=== PATIENT | female | born 1955 | race Caucasian/White ===

== ENCOUNTER 2019-04-02 15:31 | Outpatient (RCR) | payer MEDICARE, MEDICAID, SELFPAY | END 2019-04-12 23:59 | disposition home or self-care (01) | LOC: SPT 15:31 | PROVIDERS: Family Provider Family Medicine; PCP Family Medicine; Referring Provider Orthopaedic Surgery; Visit Provider Orthopaedic Surgery | DX: Z98.890 Other specified postprocedural states (principal) | CPT/HCPCS: 97110; 97161 ==

== ENCOUNTER 2019-04-13 06:00 | Outpatient (RCR) | payer MEDICARE, MEDICAID, SELFPAY | END 2019-05-13 23:59 | disposition home or self-care (01) | LOC: SPT 06:00 | PROVIDERS: Family Provider Family Medicine; PCP Family Medicine; Referring Provider Orthopaedic Surgery; Visit Provider Orthopaedic Surgery | DX: Z47.89 Encounter for other orthopedic aftercare (principal) | CPT/HCPCS: 97110; 97161 ==

== ENCOUNTER 2019-04-14 10:23 | Emergency (ER) | payer MEDICARE, MEDICAID, SELFPAY ==
[2019-04-14 10:53] VITALS: BP 147/95; PULSE 81; RESP 15; TEMP 36.8; O2SAT 95; BMI 31.6
--- NOTE | 2019-04-14 12:28 | PC.NURSE ---
PHYSICAL ASSESSMENT Patient ambulated to room Chief Complaint: Fall, hit head and right knee, Hx: Tripped and fall. Hit right knee on concrete and head on building. Denies LOC GENERAL / NEURO / PSYCH: Alert. Oriented X 4. HEENT: Mucous membranes are pink. RESPIRATORY: No abnormalities CVS: Capillary refill less than 2 seconds. GI / : Abdomen soft and nontender. Bowel sounds within normal limits. SKIN: Skin is warm and dry. Normal skin turgor. EXTREMITIES: Right knee pain. No swelling noted. Normal ROM Head: Mild swelling along the left side of forehead.
--- NOTE | 2019-04-14 12:52 | ED_ITS ---
HPI - Fall General: Chief Complaint: Fall Stated Complaint: Fall Time Seen by Provider: 04/14/19 12:29 History of Present Illness: HPI Narrative: Patient is a 64-year-old female who comes into the ED after a fall. Patient was walking and tripped and her right knee hit the concrete pavement and her forehead hit a concrete wall. She denies any loss of consciousness, nausea, vomiting. She does have a headache. Patient does take blood thinners. Denies any vision changes or any other neuro symptoms. Her other complaint is her right knee pain. She says it hurts to bend it and walk on her back. Denies any numbness or tingling down her leg or her right extremity. Associated symptoms-after fall: Reports headache(s); Denies abdominal pain, chest pain, hematuria or neck pain Review of Systems Const: Denies: fever, chills or fatigue Eyes: Denies: change in vision or eye discomfort ENMT: Denies: throat pain, painful swallowing, nasal discharge or nasal conge stion Card: Denies: chest pain, palpitations, edema, swelling of feet/ankles, shortness of breath on exertion or shortness of breath when lying down Resp: Denies: shortness of breath, productive cough or non-productive cough GI: Denies: abdominal pain, nausea, vomiting, diarrhea, constipation or blood in stool : Denies: flank pain, painful urination or blood in urine Musc: Reports: joint pain (right knee) and joint swelling (right knee swelling); Denies: neck pain, back pain or extremity swelling Skin/Breast: Denies: rash or new lesion Neuro: Reports: headache; Denies: numbness in extremities or weakness in extremities PFS ED PFSH: Social History Smoking and tobacco status: current every day smoker Physical Exam Const: COMMON NORMALS: oriented x3 HENMT: COMMON NORMALS: normocephalic and TM's normal bilaterally HEAD & SCALP: normocephalic TYMPANIC MEMBRANE: TM's normal bilaterally MOUTH: oral and palatal mucosa normal THROAT: posterior oropharynx normal and uvula midline OTHER: Patient had a small hematoma on the left side of forehead. Mild tenderness when palpated. Eye: COMMON NORMALS: PERRL, EOMs intact bilaterally and normal visual yin by confrontation PUPIL: Yes PERRL Neck/C-Spine: COMMON NORMALS: supple GENERAL: Yes normal visual inspection Resp: COMMON NORMALS: normal respiratory effort, no retractions, no use of accessory muscles and clear to auscultation bilaterally AUSCULTATION: clear to auscultation bilaterally Cardio: COMMON NORMALS: regular rate, regular rhythm, S1 normal heart sound, S2 normal heart sound, no gallops, no clicks, no murmurs and peripheral pulses 2+ throughout RATE: regular rate RHYTHM: regular rhythm HEART SOUNDS: S1 normal and S2 normal PERIPHERAL PULSES: pulses 2+ throughout GI: COMMON NORMALS: normal to inspection, nondistended, normoactive bowel sounds, soft to palpation, non-tender and no masses PALPATION: Yes soft : COMMON NORMALS: Yes no CVA tenderness BLADDER/KIDNEY EXAM: Yes no CVA tenderness Back/Pelvis: COMMON NORMALS: no CVA tenderness Extremity: RIGHT LOWER EXTREMITY: Yes knee joint Right knee: Yes inspection (mild swelling), Yes palpation (Tender on medial and lateral side of knee and over patella), Yes ROM (limited due to pain. ) and Yes neurovascular exam (intact) Neuro: MI COMA SCALE: document GCS findings [place] coma scale eye opening: Spontaneous [place] coma scale verbal response: Orientated [place] coma scale motor response: Obey commands Mi coma scale total score: 15 COMMON NORMALS: oriented x3, CN's II-XII intact bilaterally, moves all extremities, no focal motor deficits and no sensory deficits noted SENSORY EXAM: Yes extremities (intact) MOTOR EXAM: strength 5/5 throughout Skin: COMMON NORMALS: no rashes or lesions noted GENERAL SKIN EXAM: no rashes or lesions noted and dry skin Course Consultations: Consultation #1: I called the astronaut mission specialist Orthopedic doctor (Dr. Mcclain) and discussed the patients case. She took a look at the xrays as well while I was on the phone. She told me to get a CT scan of the knee and place patient in a hinge knee brace. Vital Signs: Vital signs: Vital Signs Temperature 98.3 F 04/14/19 10:53 Pulse Rate 81 04/14/19 10:53 Respiratory Rate 16 04/14/19 16:48 Blood Pressure 147/95 04/14/19 10:53 Pulse Oximetry 96 04/14/19 16:48 MDM - Fall MDM Narrative: Medical decision making narrative: CT head was performed since patient fell and hit head and pt on blood thinners. CT of head was normal. Right Knee xray showed a tibia plateau fracture. I contacted astronaut mission specialist ortho doc to get further guidance on treatment and management. Dr. Mcclain wanted me to get a ct of patients knee and then put patient in a hinged knee brace. Referral to [facility] Ortho was put in with social work msw. Pt was given a hand written prescription for 12 hydrocodone for pain. Imaging Data^: Xray Ortho: Attestation: I personally reviewed and interpreted this imaging study as follows: Radiologist's impression: [address] [place] [address] XRay Report Signed Patient: Roxy Carlos Unit #: [id number] : 1955 Age/Sex: 64 / F ADM Date: 04/14/19 Loc: ER Room/Bed: Attending Dr: Ordering Provider/Ordering MD: Johnny Hazel Date of Service: 04/14/19 Procedure(s): XR knee RT 3V* 61714 Accession Number(s): [id number] Report Number: [id number] WS: [id number] XR knee RT 3V* 22720 REASON FOR EXAM: fall, pain and swelling FINDINGS: Degenerated medial meniscal changes. Along the lateral tibial plateau is a mildly impacted fracture. Appears to involve the posterior tibial plateau. There is degenerative arthritis involving the patella femoral articulation with heavy spurring off the superior and inferior patella. IMPRESSION: Suspect fracture along the posterior medial tibial plateau. Degenerate changes of the patella. Dictated By: Shahriar Lyles DO Signed By: Shahriar Lyles DO Signed Date/Time: 04/14/19 1342 DD/ 1334 CT Head: Attestation: I personally reviewed and interpreted this imaging study as follows: Radiologist's impression: [address] [address] [address] Scan Report Signed Patient: Roxy Carlos Unit #: [id number] : 1955 Age/Sex: 64 / F ADM Date: 04/14/19 Loc: ER Room/Bed: Attending Dr: Ordering Provider/Ordering MD: Johnny Hazel Date of Service: 04/14/19 Procedure(s): CT head wo con* [id number] Accession Number(s): [id number] Report Number: [id number] WS: [id number] CT HEAD NONCONTRAST HISTORY: fall and hit head on wall. Headache TECHNIQUE: Contiguous axial imaging performed through the brain in 2.5 mm imaging. Bone and soft tissue windows. Sagittal and coronal reformats reviewed. All CT scans at [facility] use at least one of these dose optimization techniques: automated exposure control; mA and/or kV adjustment per patient size (includes targeted exams where dose is matched to clinical indication); or iterative reconstruction. DLP: 783.55 mGy.cm COMPARISON: None available. No acute intracranial hemorrhage, midline shift or mass effect. Mild atrophy and mild chronic microvascular ischemic disease. Ventricles: Normal size with no hydrocephalus. Paranasal sinuses: As visualized are clear. Mastoid air cells: Well pneumatized. Calvarium and scalp: Skull is intact with no soft tissue edema or swelling. Moderate atherosclerosis intracranial carotid arteries. CT/CT head wo con* [id number] IMPRESSION: 1. No acute intracranial hemorrhage or edema. 2. Mild atrophy and mild chronic microvascular ischemic disease. Dictated By: Jaylin Araiza DO Signed By: Jaylin Araiza DO Signed Date/Time: 04/14/191421 DD/ 141 Discharge Plan Discharge Patient Disposition: Home, Self-Care Clinical Impression: Hematoma Tibial plateau fracture Qualifiers: Encounter type: initial encounter Fracture type: closed Laterality: right Qualified Code(s): S82.141A - Displaced bicondylar fracture of right tibia, initial encounter for closed fracture Condition: Stable Discharge Orders: Discharge Order (Routine); Ordered 04/14/19 Ordered By: Johnny Hazel Referrals: Juan Hazel MD [Primary Care Provider] - Discharge Diet: Regular Discharge Activity: Limit activity as instructed and Use walker/crutches as instructed Patient Instructions: Leg Fracture (ED) Activity Restrictions/Additional Instructions: I have placed an orthopedic referral for you. [facility] orthopedics should be calling you to set up an appointment within the next several days. Wear knee brace and use crutches to help ambulate. Remember it is recommended that you only have partial weightbearing on your right leg as it heals. Take the hydrocodone as prescribed. You can rest ice and elevate legs throughout the day as well. Discharge Date/Time: 04/14/19 16:48 Coding Level of Care Code ED [employer] for Patti Vernon Exam Comprehensive
--- NOTE | 2019-04-14 13:11 | CT_ITS ---
WS: [id number] CT HEAD NONCONTRAST HISTORY: fall and hit head on wall. Headache TECHNIQUE: Contiguous axial imaging performed through the brain in 2.5 mm imaging. Bone and soft tiss ue windows. Sagittal and coronal reformats reviewed. All CT scans at [facility] use at le ast one of these dose optimization techniques: automated exposure control; mA and/or kV adjustment pe r patient size (includes targeted exams where dose is matched to clinical indication); or iterative r econstruction. DLP: 783.55 mGy.cm COMPARISON: None available. No acute intracranial hemorrhage, midline shift or mass effect. Mild atrophy and mild chronic microvascular ischemic disease. Ventricles: Normal size with no hydrocephalus. Paranasal sinuses: As visualized are clear. Mastoid air cells: Well pneumatized. Calvarium and scalp: Skull is intact with no soft tissue edema or swelling. Moderate atherosclerosis intracranial carotid arteries. CT/CT head wo con* [id number] IMPRESSION: 1. No acute intracranial hemorrhage or edema. 2. Mild atrophy and mild chronic microvascular ischemic disease.
--- NOTE | 2019-04-14 13:11 | XR_ITS ---
WS: [id number] XR knee RT 3V* [id number] REASON FOR EXAM: fall, pain and swelling FINDINGS: Degenerated medial meniscal changes. Along the lateral tibial plateau is a mildly impacted fracture. Appears to involve the posterior tibi al plateau. There is degenerative arthritis involving the patella femoral articulation with heavy spurring off th e superior and inferior patella. IMPRESSION: Suspect fracture along the posterior medial tibial plateau. Degenerate changes of the patella.
[2019-04-14] MEDS: acetaminophen 500 mg Tablet PO (14:00)
--- NOTE | 2019-04-14 14:43 | CT_ITS ---
WS: [id number] CT scan of the right knee. Additional two-dimensional coronal and sagittal reconstruction was perform ed. MIP images were also performed. 04/14/2019 Clinical Data: pain and injury to right knee Comparison: Right knee x-ray, 04/14/2019 DLP: 192.[address] scans at [facility] use at least one of these dose optimization techniques: automat ed exposure control; mA and/or kV adjustment per patient size (includes targeted exams where dose is matched to clinical indication); or iterative reconstruction. Findings: No definite tibial plateau fracture is seen. There is osteoarthritic change of the femoral condyles, tibial plateau and patella. The soft tissues are normal. CT/CT knee RT wo con* [id number] Impression: 1. Negative for definite tibial plateau fracture. 2. Severe osteoarthritis of the right knee.
--- NOTE | 2019-04-14 15:49 | DCPLANNER ---
manager animation had message to schedule a follow up appointment for patient with ortho. manager animation called the clinic, spoke with Pat, gave clinic patients information. manager animation was told that patients information would be printed and reviewed. Clinic will call case management specialist and patient with appointment information.
[2019-04-14 16:48] VITALS: RESP 16; O2SAT 96
--- NOTE | 2019-04-22 15:08 | DCPLANNER ---
Patient had an appointment scheduled for 04.17.19 with ortho, and patient did attend the appointment.
== END 2019-04-14 16:48 | disposition home or self-care (01) ==
PROVIDERS: Emergency Provider Physician Assistant; Family Provider Family Medicine; PCP Family Medicine
DX: S82.141A Displaced bicondylar fracture of right tibia, initial encounter for closed fracture (principal); S00.83XA Contusion of other part of head, initial encounter; F17.200 Nicotine dependence, unspecified, uncomplicated; R40.2412 Glasgow coma scale score 13-15, at arrival to emergency department; W01.198A Fall on same level from slipping, tripping and stumbling with subsequent striking against other object, initial encounter
CPT/HCPCS: 29530; 70450; 73562; 73700; 99281; 99283; E0114; L1812

== ENCOUNTER 2019-06-11 09:25 | Outpatient (CLI) | payer MEDICARE, MEDICAID, SELFPAY ==
--- NOTE | 2019-06-11 09:36 | XR_ITS ---
WS: [id number] RIGHT HIP HISTORY: LUMBAGO WITH SCIATICA COMPARISON: 02/14/2006 Right hip: There is very slight elevation of the cortex involving the superior femoral neck. Nearly s imilar to the prior study from 2006. No definite fractures identified. Mild narrowing of the hip join t. Mild degenerative changes at the RIGHT SI joint. XR/XR hip RT 2-3V wo/w pel* [id number] IMPRESSION: 1. No definite hip fracture. There is slight elevation of the cortex along the superior femoral neck which is nearly similar to the prior study. With history of trauma recommend follow-up RIGHT hip CT or MRI. 2. Mild RIGHT hip joint arthritis.
--- NOTE | 2019-06-11 09:40 | XR_ITS ---
WS: [id number] LUMBAR SPINE: 3 VIEWS TECHNIQUE: AP, lateral and L5-S1 spot. HISTORY: LUMBAGO WITH SCIATICA COMPARISON: None available. Status post lumbar fusion from L4 to S1 bilaterally. Interbody spacers screw at L5-S1. No lucency or fractures hardware. Mild disc space narrowing and desiccation throughout the lumbar spine. No fractures. Mild bilateral SI joint disease. Scattered calcifications in the aorta. Prior cholecystectomy. XR/XR lumbar spine 2-3V* [id number] IMPRESSION: 1. Status post lumbar fusion from L4 to S1. No hardware fracture or loosening. 2. Mild spondylosis.
== END 2019-06-11 09:26 | disposition home or self-care (01) ==
LOC: RAD 09:32
PROVIDERS: Family Provider Family Medicine; PCP Family Medicine; Visit Provider Nurse Practitioner Family
DX: M54.41 Lumbago with sciatica, right side (principal); M47.816 Spondylosis without myelopathy or radiculopathy, lumbar region; M16.11 Unilateral primary osteoarthritis, right hip; Z98.890 Other specified postprocedural states; Z98.1 Arthrodesis status; M43.27 Fusion of spine, lumbosacral region
CPT/HCPCS: 72100; 73502

== ENCOUNTER 2019-06-22 08:50 | Emergency (ER) | payer MEDICARE, MEDICAID, SELFPAY ==
[2019-06-22 09:20] VITALS: BP 122/65; PULSE 103; RESP 15; TEMP 36.7; O2SAT 96; BMI 30.8
--- NOTE | 2019-06-22 09:30 | ED_ITS ---
HPI - General Adult General: Chief complaint: General Medical Stated complaint: STATES SHE IS VERY TIRED AND SLEEPS ALOT Time Seen by Provider: 06/22/19 09:16 History of Present Illness: HPI narrative: Patient is a 64-year-old female who comes to the ED with generalized fatigue and feeling unwell. Patient says she started having the symptoms on , June 18. She states she has had no energy and been sleeping a lot. She has lost her appetite and has not been eating much since start of symptoms. She describes having some chills but no fever. Denies any worsening of symptoms when she is up ambulating or exerting herself. Patient did inform me that her brother 3 weeks ago and she has been very sad and down about that. She thinks that could be contributing to some of her symptoms. Patient also states that she did recently have a take on her. She has noticed it on Sunday, June 19 and removed it. Denies any acute pain, cough, sore throat, nasal congestion, nausea, vomiting, chest pain, shortness of breath, constipation, diarrhea, blood in the stool, hematuria, dysuria. Associated symptoms: Deny chest pain, dyspnea, headache(s), nausea, rash, palpitations or vomiting Review of Systems Const: Reports: chills, change in appetite, fatigue and daytime sleepiness; Denies: fever Eyes: Denies: change in vision or eye discomfort ENMT: Denies: throat pain, painful swallowing, nasal discharge or nasal congestion Card: Denies: chest pain, palpitations, edema, swelling of feet/ankles, shortness of breath on exertion or shortness of breath when lying down Resp: Denies: shortness of breath, productive cough or non-productive cough GI: Denies: abdominal pain, nausea, vomiting, diarrhea, constipation or blood in stool : Denies: flank pain, painful urination or blood in urine Musc: Denies: neck pain, back pain or extremity swelling Skin/Breast: Denies: rash or new lesion Neuro: Denies: headache, numbness in extremities or weakness in extremities PFSH ED PFSH: Family History Other Cancer Diabetes Hypertension Stroke Social History Smoking and tobacco status: never smoked Physical Exam Const: COMMON NORMALS: oriented x3 HENMT: COMMON NORMALS: normocephalic HEAD & SCALP: normocephalic MOUTH: oral and palatal mucosa normal THROAT: posterior oropharynx normal and uvula midline Neck/C-Spine: COMMON NORMALS: supple GENERAL: Yes normal visual inspection Resp: COMMON NORMALS: normal respiratory effort, no retractions, no use of accessory muscles and clear to auscultation bilaterally AUSCULTATION: clear to auscultation bilaterally Cardio: COMMON NORMALS: regular rate, regular rhythm, S1 normal heart sound, S2 normal heart sound, no gallops, no clicks, no murmurs and peripheral pulses 2+ throughout RATE: regular rate RHYTHM: regular rhythm HEART SOUNDS: S1 normal and S2 normal PERIPHERAL PULSES: pulses 2+ throughout GI: COMMON NORMALS: normal to inspection, nondistended, normoactive bowel sounds, soft to palpation, non-tender and no masses PALPATION: Yes soft : COMMON NORMALS: Yes no CVA tenderness BLADDER/KIDNEY EXAM: Yes no CVA tenderness Back/Pelvis: COMMON NORMALS: no CVA tenderness Neuro: COMMON NORMALS: oriented x3 and moves all extremities Course ED course: HEART Score-2 Vital Signs: Vital signs: Vital Signs Temperature 98.1 F 06/22/19 09:20 Pulse Rate 70 06/22/19 12:42 Respiratory Rate 18 06/22/19 12:42 Blood Pressure 127/75 06/22/19 12:42 Pulse Oximetry 98 06/22/19 12:42 MDM - General Adult MDM Narrative: Medical decision making narrative: Patient is a 64-year-old female who comes to the ED with fatigue. She has had recent stress and sadness due to losing her brother within the last couple weeks. Patient also states that she did have a tick on her and she removed it on June 19. Physical exam was unremarkable. Vitals showed a blood pressure of 127/75, pulse 70, respirations 18, temp 98.1, O2 saturation 98% on room air. EKG showed normal sinus rhythm and troponins were negative. Patient had a white blood cell count of 2.8 and a low platelet count of 112. TSH was normal and influenza was negative. Patient was also worked up for tick panel labs and those are still pending. She was diagnosed with fatigue and given prescription of doxycycline to prophylactically treat possible tick bite disease. Patient was told to follow-up with PCP in 7 days for reevaluation. Patient understood and agreed with plan. Lab Data: Attestation: I reviewed the patient's lab results. Labs: Lab Results 06/22/19 06/22/19 06/22/19 Range/Units 10:05 10:05 10:20 WBC 2.8 L (4.0-10.0) 10^3/ uL RBC 4.66 (4.1-5.3) 10^6/u L Hgb 12.9 (11.5-15.3) g/dL Hct 40.1 (37.0-47.0) % MCV 86.1 (81-99) fL MCH 27.7 L (28.0-34.0) pg MCHC 32.2 (30.0-36.0) g/dL RDW 14.8 (12.1-15.1) % Plt Count 112 L (130-400) 10^3/c mm MPV 10.0 (7.4-10.4) fL Neut % (Auto) 92.1 % Lymph % (Auto) 5.0 % [place] % (Auto) 2.5 % Eos % (Auto) 0.0 % Baso % (Auto) 0.0 % Neut # (Auto) 2.6 (1.8-7.7) 10^3/u L Lymph # (Auto) 0.1 L (0.8-4.8) 10^3/u L Mercer # (Auto) 0.1 L (0.2-0.9) 10^3/u L Eos # (Auto) 0.0 (0.0-0.8) 10^3/u L Baso # (Auto) 0.0 (0.0-0.1) 10^3/u L Nucleated RBC % (a uto) 0 % Nucleated RBCs # 0.0 /100WBC Sodium (136-145) mmol/L Potassium (3.5-5.1) mmol/L Chloride (98-107) mmol/L Carbon Dioxide (22-29) mmol/L Anion Gap (5-19) BUN (8-23) mg/dL Creatinine (0.5-0.9) mg/dL GFR Calculation (90-130) mL/min Glucose (65-115) mg/dL Calculated Osmolal ity (285-295) mOsm/k g Calcium (8.5-10.5) mg/dL Total Bilirubin (0.15-1.2) mg/dL AST (0-32) U/L ALT (0-33) U/L Alkaline Phosphata se (35-105) IU/L Troponin T Baselin e (0-10) ng/mL Troponin T 120 Min [place] (0-10) ng/mL Delta Troponin T (0-10) ABS# Total Protein (6.6-8.7) g/dL Albumin (3.5-5.2) g/dL Globulin (1.3-4.6) g/dL TSH (0.27-4.20) uIU/ mL Urine Color Yellow (Yellow) Urine Appearance Hazy A (CLEAR) Urine pH 5 (5-7) Ur Specific Gravit y 1.025 (1.005-1.030) Urine Protein Trace (Negative) Urine Glucose (UA) Trace H (Normal) Urine Ketones 2+ H (Negative) Urine Blood 3+ H (Negative) Urine Nitrate Negative (Negative) Urine Bilirubin 1+ H (NEGATIVE) Urine Urobilinogen 1 H (Negative) mg/dL Ur Leukocyte [place] ase Negative (Negative) Urine RBC 10-15 H (0-2) /hpf Urine WBC 0-4 H (0-5) /hpf Ur Squamous Epith Cells 0-4 H (0-5) Urine Bacteria 4+ H (NONE) Urine Mucus 1+ Influenza Type A A g Negative (Negative) Influenza Type B A g Negative (Negative) 06/22/19 06/22/19 06/22/19 Range/Units 10:20 10:20 12:09 WBC (4.0-10.0) 10^3/ uL RBC (4.1-5.3) 10^6/u L Hgb (11.5-15.3) g/dL Hct (37.0-47.0) % MCV (81-99) fL MCH (28.0-34.0) pg MCHC (30.0-36.0) g/dL RDW (12.1-15.1) % Plt Count (130-400) 10^3/c mm MPV (7.4-10.4) fL Neut % (Auto) % Lymph % (Auto) % Mercer % (Auto) % Eos % (Auto) % Baso % (Auto) % Neut # (Auto) (1.8-7.7) 10^3/u L Lymph # (Auto) (0.8-4.8) 10^3/u L [place] # (Auto) (0.2-0.9) 10^3/u L Eos # (Auto) (0.0-0.8) 10^3/u L Baso # (Auto) (0.0-0.1) 10^3/u L Nucleated RBC % (a uto) % Nucleated RBCs # /100WBC Sodium 133 L (136-145) mmol/L Potassium 3.5 (3.5-5.1) mmol/L Chloride 100 (98-107) mmol/L Carbon Dioxide 20 L (22-29) mmol/L Anion Gap 16.5 (5-19) BUN 18 (8-23) mg/dL Creatinine 0.9 (0.5-0.9) mg/dL GFR Calculation 63.0 L (90-130) mL/min Glucose 230 H (65-115) mg/dL Calculated Osmolal ity 280 L (285-295) mOsm/k g Calcium 8.9 (8.5-10.5) mg/dL Total Bilirubin 0.5 (0.15-1.2) mg/dL AST 92 H (0-32) U/L ALT 60 H (0-33) U/L Alkaline Phosphata se 104 (35-105) IU/L Troponin T Baselin e 9 (0-10) ng/mL Troponin T 120 Min [place] 9.15 (0-10) ng/mL Delta Troponin T 0.15 (0-10) ABS# Total Protein 6.2 L (6.6-8.7) g/dL Albumin 3.7 (3.5-5.2) g/dL Globulin 2.5 (1.3-4.6) g/dL TSH 0.74 (0.27-4.20) uIU/ mL Urine Color (Yellow) Urine Appearance (CLEAR) Urine pH (5-7) Ur Specific Gravit y (1.005-1.030) Urine Protein (Negative) Urine Glucose (UA) (Normal) Urine Ketones (Negative) Urine Blood (Negative) Urine Nitrate (Negative) Urine Bilirubin (NEGATIVE) Urine Urobilinogen (Negative) mg/dL Ur Leukocyte [place] ase (Negative) Urine RBC (0-2) /hpf Urine WBC (0-5) /hpf Ur Squamous Epith Cells (0-5) Urine Bacteria (NONE) Urine Mucus Influenza Type A A g (Negative) Influenza Type B A g (Negative) Imaging Data^: CXR: Attestation: I personally reviewed and interpreted this imaging study as follows: Radiologist's impression: [address] [address] XRay Report Signed Patient: Roxy Carlos Unit #: [id number] : 1955 Age/Sex: 64 / F ADM Date: 06/22/19 Loc: ER Room/Bed: Attending Dr: Ordering Provider/Ordering MD: Johnny Hazel Date of Service: 06/22/19 Procedure(s): XR chest 1V portable [id number] Accession Number(s): [id number] Report Number: [id number] WS: [id number] XR chest 1V portable [id number] REASON FOR EXAM: fatigue FINDINGS: Comparisons were made to October 23, 2017. The heart is similar in size and configuration . 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 There is no evidence of active infiltrates in either lung yin. No pneumonia, pulmonary edema, pleural effusion, or masses. The hilum and apices normal. XR/XR chest 1V portable [id number] IMPRESSION: Eventration of the right hemidiaphragm Unchanged chest since October 23, 2017. Dictated By: Shahriar Lyles DO Signed By: Shahriar Lyles DO Signed Date/Time: 06/22/19 1012 DD/ 1011 EKG Data^: EKG 1: Attestation: I personally reviewed and interpreted this EKG as follows: EKG interpretation date: 06/22/19 Computer generated interpretation: Chest X-Ray 06/22/19 09:55 IMPRESSION: Eventration of the right hemidiaphragm Unchanged chest since October 23, 2017. Normal sinus rhythm. 96 bpm, no ST segment elevation or depression seen. P waves present. EKG 2: Attestation: I personally reviewed and interpreted this EKG as follows: EKG interpretation date: 06/22/19 Interpretation: Normal sinus rhythm with PVCs. Ventricular rate 96 bpm, no ST segment elevation or depression seen. P waves present. Computer generated interpretation: Chest X-Ray 06/22/19 09:55 IMPRESSION: Eventration of the right hemidiaphragm Unchanged chest since October 23, 2017. Discharge Plan Discharge Patient Disposition: Home, Self-Care Clinical Impression: Fatigue Qualifiers: Fatigue type: other Qualified Code(s): R53.83 - Other fatigue Tick bite Qualifiers: Encounter type: initial encounter Qualified Code(s): W57.XXXA - Bitten or stung by nonvenomous insect and other nonvenomous arthropods, initial encounter Condition: Stable Prescriptions: New doxycycline hyclate 100 mg tablet 100 mg PO BID 14 Days Qty: 28 RF: 0 No Action pravastatin 10 mg tablet 10 mg PO BEDTIME RF: 0 diltiazem HCl [Cartia XT] 120 mg capsule,extended release 24hr 120 mg PO DAILY RF: 0 Januvia 50 mg tablet 50 mg PO DAILY RF: 0 Eliquis 5 mg tablet 5 mg PO BID RF: 0 lisinopril 20 mg tablet 20 mg PO BID RF: 0 diphenhydramine HCl [Allergy Relief(diphenhydramin)] 25 mg tablet 25 mg PO BID PRN (Reason: ALLERGIES) RF: 0 levothyroxine 100 mcg tablet 100 mcg PO DAILY RF: 0 vitamin B complex [B Complex-Vitamin B12] Tablet 1 tab PO DAILY RF: 0 cholecalciferol (vitamin D3) 2,000 unit tablet,chewable 2,000 unit PO BID RF: 0 multivitamin [Multiple Vitamins] Tablet 1 tab PO DAILY RF: 0 pioglitazone 15 mg tablet 15 mg PO DAILY RF: 0 Tylenol 325 mg Tablet 325 mg PO QID PRN (Reason: Pain) RF: 0 amlodipine 5 mg tablet 5 mg PO DAILY RF: 0 triamcinolone acetonide 0.1 % cream See Rx Instructions .ROUTE .COMPLEX RF: 0 gabapentin 300 mg capsule 300 mg PO DAILY RF: 0 albuterol sulfate 90 mcg/actuation HFA aerosol inhaler 2 puff INHALATION Q4H PRN (Reason: Shortness Of Breath) RF: 0 ketoconazole 2 % cream See Rx Instructions .ROUTE .COMPLEX RF: 0 Discharge Orders: Discharge Order (Routine); Ordered 06/22/19 Ordered By: Johnny Hazel Referrals: Juan Hazel MD [Primary Care Provider] - Discharge Diet: Regular Discharge Activity: Resume usual activity Patient Instructions: Tick Bite (ED), Depression (ED), Fatigue (ED) Activity Restrictions/Additional Instructions: Call and set up an appointment with your PCP within the next 7 days for reevaluation. Make sure to talk with your doctor about your current symptoms and recent of a loved one. Also take full course of doxycycline as prescribed. The hospital will contact you with results of blood work done for tick panel. I included packet of information on depression with your discharge. Exercise such as walking 30 minutes a day for 3 or more times a week can help with symptoms such as stress, anxiety or depression. Discharge Date/Time: 06/22/19 12:42 Coding Level of Care Code ED Wiping Cloth Cutter for Patti Fwd Exam Comprehensive
--- NOTE | 2019-06-22 09:55 | XR_ITS ---
WS: [id number] XR chest 1V portable [id number] REASON FOR EXAM: fatigue FINDINGS: Comparisons were made to October 23, 2017. The heart is similar in size and configuration . 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 There is no evidence of active infiltrates in either lung yin. No pneumonia, pulmonary edema, pleu ral effusion, or masses. The hilum and apices normal. XR/XR chest 1V portable [id number] IMPRESSION: Eventration of the right hemidiaphragm Unchanged chest since October 23, 2017.
[2019-06-22 10:04] VITALS: BP 87/51; BP 88/62; BP 98/49; PULSE 88; PULSE 98; PULSE 99
[2019-06-22 10:33] LABS: Hematocrit 40.1 % (37.0-47.0); Hemoglobin 12.9 g/dL (11.5-15.3); Lymphocytes # 0.1 10^3/uL (0.8-4.8); Mean Corpuscular HGB Conc 32.2 g/dL (30.0-36.0); Mean Corpuscular Hemoglobin 27.7 pg (28.0-34.0); Mean Corpuscular Volume 86.1 fL (81-99); Monocytes # 0.1 10^3/uL (0.2-0.9); Monocytes % 2.5 %; Neutrophils # 2.6 10^3/uL (1.8-7.7); Neutrophils % 92.1 %; Nucleated Red Blood Cells % 0 %; Platelet Count 112 10^3/cmm (130-400); Red Blood Count 4.66 10^6/uL (4.1-5.3); Red Cell Distribution Width 14.8 % (12.1-15.1); White Blood Count 2.8 10^3/uL (4.0-10.0)
[2019-06-22 10:48] LABS: Bilirubin Urine 1+ (NEGATIVE); Blood Urine 3+ (Negative); Glucose Urine UA Trace (Normal); Ketones Urine 2+ (Negative); Leukocyte Esterase Urine Negative (Negative); Nitrate Urine Negative (Negative); Protein Urine Trace (Negative); Specific Gravity, Urine 1.025 (1.005-1.030); Urine Appearance Hazy (CLEAR); Urine Color Yellow (Yellow); Urobilinogen Urine 1 mg/dL (Negative); pH Urine 5 (5-7)
[2019-06-22 10:50] LABS: Troponin(5th) Baseline 9 ng/mL (0-10)
[2019-06-22 10:50] LABS: Squamous Epithelial Cell Urine 0-4 (0-5); WBC Urine 0-4 /hpf (0-5)
[2019-06-22 10:51] LABS: Add Urine Culture? Yes; Bacteria Urine 4+; Mucus Urine 1+
[2019-06-22 10:55] LABS: Influenza A by IFA Negative (Negative); Influenza B by IFA Negative (Negative)
[2019-06-22 10:59] LABS: Alanine Aminotransferase 60 U/L (0-33); Albumin Level 3.7 g/dL (3.5-5.2); Alkaline Phosphatase 104 IU/L (35-105); Anion Gap 16.5 (5-19); Aspartate Amino Transferase 92 U/L (0-32); Blood Urea Nitrogen 18 mg/dL (8-23); Calcium 8.9 mg/dL (8.5-10.5); Carbon Dioxide 20 mmol/L (22-29); Chloride 100 mmol/L (98-107); Creatinine Clr Calc Pharmacy 69.9957; Globulin 2.5 g/dL (1.3-4.6); Glucose 230 mg/dL (65-115); Osmolality Calculated 280 mOsm/kg (285-295); Potassium 3.5 mmol/L (3.5-5.1); Sodium 133 mmol/L (136-145); Thyroid Stimulating Hormone 0.74 uIU/mL (0.27-4.20); Total Bilirubin 0.5 mg/dL (0.15-1.2); Total Protein 6.2 g/dL (6.6-8.7)
--- NOTE | 2019-06-22 11:53 | ECG_ITS ---
Measurements Intervals [place] Rate: 96 P: 14 CO: 176 QRS: -40 QRSD: 102 T: 67 QT: 370 QTc: 470 SINUS RHYTHM WITH FREQUENT VENTRICULAR PREMATURE COMPLEXES LEFT AXIS DEVIATION [QRS AXIS < -30] POSSIBLE ANTERIOR MYOCARDIAL INFARCTION , OF INDETERMINATE AGE [30 ms Q WAVE IN V3/V4, OR R < 0.2 mV IN V4] Compared to ECG 10/23/2017 09:34:02 Ventricular premature complex(es) now present Myocardial infarct finding now present Electronically Signed On 06-22-2019 20:16:06 CDT by Ang Adams M.D. [email or web address]
--- NOTE | 2019-06-22 11:56 | PC.NURSE ---
Read and agree with assessment.
[2019-06-22 12:42] VITALS: BP 127/75; PULSE 70; RESP 18; O2SAT 98
[2019-06-22 12:43] LABS: Troponin 5 2HR 9.15 ng/mL (0-10); Troponin 5 2HR Delta 0.15 ABS# (0-10)
--- NOTE | 2019-06-22 15:53 | ECG_ITS ---
Measurements Intervals [place] Rate: 96 P: 47 FL: 181 QRS: -42 QRSD: 103 T: 74 QT: 359 QTc: 455 SINUS RHYTHM LEFT AXIS DEVIATION [QRS AXIS < -30] POSSIBLE ANTERIOR MYOCARDIAL INFARCTION , OF INDETERMINATE AGE [30 ms Q WAVE IN V3/V4, OR R < 0.2 mV IN V4] Compared to ECG 10/23/2017 09:34:02 Myocardial infarct finding now present Electronically Signed On 06-22-2019 20:15:43 CDT by Ang Adams M.D. [email or web address]
[2019-06-24 12:11] LABS: Lyme AB Screen <0.90 index
[2019-06-25 15:55] LABS: E. Chaffeensis AB IGG <1:64; E. Chaffeensis AB IGM <1:20
[2019-06-26 16:00] LABS: RMSF IGG NOT DETECTED; RMSF IGM NOT DETECTED
== END 2019-06-22 12:42 | disposition home or self-care (01) ==
PROVIDERS: Emergency Provider Physician Assistant; PCP Family Medicine
DX: R53.83 Other fatigue (principal); T14.8XXA Other injury of unspecified body region, initial encounter; W57.XXXA Bitten or stung by nonvenomous insect and other nonvenomous arthropods, initial encounter; Z79.01 Long term (current) use of anticoagulants
CPT/HCPCS: 12345; 36415; 71045; 80053; 81001; 84443; 84484; 85025; 86618; 86666; 86757; 87077; 87086; 87186; 87804; 93005; 99283

== ENCOUNTER 2019-06-23 08:51 | Outpatient (CLI) | payer MEDICARE, MEDICAID, SELFPAY ==
--- NOTE | 2019-06-23 09:13 | CT_ITS ---
WS: [id number] NONCONTRAST CT RIGHT HIP TECHNIQUE: CT right hip with coronal and sagittal reformatted images. CLINICAL INFORMATION: ABNORMAL XRAY OF EXTREMITY(RT HIP) COMPARISON: Radiograph June 11, 2019 DLP: 757.[address] scans at [facility] use at least one of these dose optimization techniques: automat ed exposure control; mA and/or kV adjustment per patient size (includes targeted exams where dose is matched to clinical indication); or iterative reconstruction. FINDINGS: Mild degenerative arthritis right hip with joint space narrowing. Mild acetabular spurring. Slight hy pertrophic changes along the femoral neck as seen on the prior radiograph. No acute fractures. Proxim al femoral shaft is normal. Normal visualized right pubic rami. Moderate degenerative arthritis right SI joint. Postoperative changes lower lumbar spine and sacrum. CT/CT hip RT wo con* [id number] IMPRESSION: No acute right hip fractures.
== END 2019-06-23 08:52 | disposition home or self-care (01) ==
LOC: RADWPI 08:58
PROVIDERS: PCP Family Medicine; Visit Provider Nurse Practitioner Family
DX: R93.89 Abnormal findings on diagnostic imaging of other specified body structures
CPT/HCPCS: 73700

== ENCOUNTER 2019-09-16 10:14 | Outpatient (CLI) | payer MEDICARE, MEDICAID, SELFPAY ==
--- NOTE | 2019-09-16 10:20 | MM_ITS ---
WS: [id number] BILATERAL DIGITAL SCREENING MAMMOGRAM WITH CAD CLINICAL INFORMATION: SCREENING HISTORY: Screening mammogram. No current complaints. COMPARISON: None. TECHNIQUE: Bilateral CC and MLO views. FINDINGS: Fatty-replaced breasts bilaterally. No suspicious focal mass, asymmetry, calcifications, or senior sharepoint architect ural distortion. No evidence of malignancy. MM/[place] [id number] IMPRESSION: BI-RADS: 1-Negative FOLLOW UP: 1 Year Follow-up Recommend return to annual screening mammography.
== END 2019-09-16 10:15 | disposition home or self-care (01) ==
LOC: RADSHAW 10:17
PROVIDERS: PCP Nurse Practitioner Family; Visit Provider Nurse Practitioner Family
DX: Z12.31 Encounter for screening mammogram for malignant neoplasm of breast (principal)
CPT/HCPCS: 77067

== ENCOUNTER → 2019-11-26 13:13 | Outpatient (BNVA) | payer MEDICARE, MEDICAID, SELFPAY | PROVIDERS: PCP Nurse Practitioner Family; Visit Provider Nurse Practitioner | DX: M79.672 Pain in left foot (principal) | CPT/HCPCS: 73630 ==

== ENCOUNTER 2020-02-04 13:07 | Outpatient (CLI) | payer MEDICARE, MEDICAID, SELFPAY ==
[2020-02-04 13:34] LABS: Basophils # 0.1 10^3/uL (0.0-0.1); Basophils % 0.9 %; Eosinophils # 0.2 10^3/uL (0.0-0.8); Eosinophils % 2.6 %; Hematocrit 42.2 % (37.0-47.0); Hemoglobin 13.5 g/dL (11.5-15.3); Lymphocytes # 2.6 10^3/uL (0.8-4.8); Lymphocytes % 40.6 %; Mean Corpuscular Hemoglobin 26.7 pg (28.0-34.0); Mean Corpuscular Volume 83.4 fL (81-99); Mean Platelet Volume 9.4 fL (7.4-10.4); Monocytes # 0.4 10^3/uL (0.2-0.9); Monocytes % 6.2 %; Neutrophils # 3.18 10^3/uL (1.8-7.7); Neutrophils % 49.5 %; Nucleated Red Blood Cells % 0 %; Platelet Count 281 10^3/cmm (130-400); Red Blood Count 5.06 10^6/uL (4.1-5.3); Red Cell Distribution Width 14.4 % (12.1-15.1); White Blood Count 6.4 10^3/uL (4.0-10.0)
[2020-02-05 15:02] LABS: Bermuda Class 0; Bermuda Grass (G2) Ige <0.10 kU/L; Cat Dander (E1) Ige <0.10 kU/L; Cat Dander Class 0; Dog Dander (E5) Ige <0.10 kU/L; Dog Dander Class 0; Immunoglobulin E 25 kU/L (<OR=114); Immunoglobulin E 29 kU/L (<OR=114); Johnson Grass (G10) Ige <0.10 kU/L; Johnson Grass Cl 0; June Grass Class 0; June Grass(Kentucky Blue) (G8) <0.10 kU/L; Meadow Fescue (G4) Ige <0.10 kU/L; Meadow Fescue Class 0; Orchard Grass (Cocksfoot) (G3) <0.10 kU/L; Perennial Rye Grass (G5) Ige <0.10 kU/L; Perennial Rye Grass Class 0; Sweet Vernal Class 0; Sweet Vernal Grass (G1) Ige <0.10 kU/L; Timothy Grass (G6) Ige <0.10 kU/L; Timothy Grass Class 0
[2020-02-09 13:08] LABS: Alternaria Alternata (M6) Ige <0.10 kU/L; Alternaria Class 0; Common Ragweed (Short) (W1) Ig <0.10 kU/L; D. Farinae Class 1; Dermatophagoides Class 1; Dermatophagoides Farinae (D2) 0.55 kU/L; Dermatophagoides Pteronyssinus 0.49 kU/L; Elm (T8) Ige <0.10 kU/L; Elm Class 0; English Plantain (W9) Ige <0.10 kU/L; English Plantain Class 0; House Dust (Greer) (H1) Ige 0.16 kU/L; House Dust (Hollister- Stier) 0.16 kU/L; House Dust Class 0/1; Lamb'S Quarters (Goose Foot) <0.10 kU/L; Lamb'S Quarters Class 0; Maple (Box Elder) (T1) Ige <0.10 kU/L; Maple Class 0; Mucor Racemosus Class 0; Oak (T7) Ige <0.10 kU/L; Oak Class 0; Penicillium Class 0; Penicillium Notatum (M1) Ige <0.10 kU/L; Ragweeed Class 0; Rough Marsh Elder (W16) Ige <0.10 kU/L; Rough Marsh Elder Class 0
[2020-02-10 20:18] LABS: Aspergillus Fumigatus, Igg Ab, 10.9 mg/L (<=102)
== END 2020-02-04 13:08 | disposition home or self-care (01) ==
LOC: LAB 13:13
PROVIDERS: PCP Nurse Practitioner Family; Visit Provider Internal Medicine Pulmonary Disease
DX: J45.909 Unspecified asthma, uncomplicated (principal)
CPT/HCPCS: 82785; 85025; 86003

== ENCOUNTER 2020-05-29 16:44 | Emergency (ER) | payer MEDICARE, MEDICAID, SELFPAY ==
[2020-05-29 16:47] VITALS: BP 165/56; PULSE 81; RESP 18; TEMP 36.6; O2SAT 97; BMI 31.9
--- NOTE | 2020-05-29 17:05 | XRR_ITS ---
PROCEDURE INFORMATION: Exam: XR Right Knee Exam date and time: 05/29/2020 5:05 PM Age: 65 years old Clinical indication: Pain; Knee; Right; Additional info: RT knee pain TECHNIQUE: Imaging protocol: XR Right knee. Views: 3 views. COMPARISON: No relevant prior studies available. FINDINGS: Bones/joints: Chondrocalcinosis. Severe patellofemoral compartment primary osteoarthritis. Moderate to severe medial knee compartment primary osteoarthritis. Mild to moderate lateral knee compartment primary osteoarthritis. Soft tissues: Loss of cartilage space in the medial knee compartment. Nonemergent MRI may be helpful to rule out medial meniscal pathology. XR/XR knee RT 3V* [id number] IMPRESSION: 1. Loss of cartilage space in the medial knee compartment. Nonemergent MRI may be helpful to rule out medial meniscal pathology. 2. Severe patellofemoral compartment primary osteoarthritis. 3. Moderate to severe medial knee compartment primary osteoarthritis. 4. Mild to moderate lateral knee compartment primary osteoarthritis.
--- NOTE | 2020-05-29 17:11 | ED_ITS ---
HPI - Extremity Problem General: Chief complaint: Extremity Injury, Lower Stated complaint: R KNEE PAIN Time Seen by Provider: 05/29/20 17:02 Source: patient Mode of arrival: ambulatory Limitations: no limitations History of Present Illness: HPI Narrative: 65-year-old female patient presents to the emergency department with 2-week onset of right knee pain. She denies trauma or injury. Denies loss of stability, denies weakness of the right knee. She reports pain is located on the inside of the knee and at the kneecap. Denies swelling or redness; she denies calf tenderness of the affected leg. She reports previous symptoms in the past, approximately 1 year ago; states was prescribed knee immobilizer with crutches, did follow-up with orthopedic surgery. CT scan of the right knee completed in April 2019 revealed severe osteoarthritis of the right knee. She reports took tramadol prior to arrival and has not helped with pain. MD Complaint: extremity pain Onset (ago): week(s) (2) Location: right and knee Quality: stabbing and sharp Radiation: none Relieving factors: immobilization and rest Exacerbating factors: weight bearing and walking Associated symptoms: Reports no associated symptoms; Deny chest pain, fever(s) or rash Review of Systems General: Reports: 10 or more systems reviewed and unremarkable except in HPI and below Const: Denies: fever(s), chills or diaphoresis Eyes: Denies: blurry vision or eye redness ENMT: Denies: throat pain, dental pain or disequilibrium Card: Denies: chest pain, palpitations or irregular heart rhythm Resp: Denies: dyspnea, productive cough, non-productive cough or wheezing GI: Denies: abdominal pain, nausea or vomiting : Denies: difficulty voiding or dysuria Musc: Reports: joint pain; Denies: neck pain, back pain, joint swelling, joint stiffness or muscle weakness Skin/Breast: Denies: rash or pruritus Neuro: Denies: headache(s), weakness in extremities or behavioral changes Psych: Denies: anxiety or depression Danny/Lymph: Denies: easy bruising PFSH ED PFSH: Family History Other Cancer Diabetes Hypertension Stroke Social History Smoking and tobacco status: current some day smoker cigarettes Years cigarettes smoked: 20 Quit status (tobacco): considering quitting Second hand smoke exposure: Yes Smoking risk assessment/counseling performed?: Yes Alcohol intake: never Lives independently: Yes Household members: none Housing: House Marital status: Life Partner Current occupational status: disabled Pets and animals: Yes History of recent travel: No Current gender identity: Female Physical Exam Const: COMMON NORMALS: no acute distress, patient oriented x3, healthy appe aring and alert GENERAL APPEARANCE: cooperative, comfortable and well hydrated HENMT: COMMON NORMALS: normocephalic, Normal external nose present and moist oral mucous membranes HEAD & SCALP: normocephalic NOSE: Normal external nose present Eye: COMMON NORMALS: Equal, round and reactive pupils present and EOMs intact bilaterally GENERAL EYE: appearance normal, both eyes and all related structures PUPIL: Yes Equal, round and reactive pupils present Neck/C-Spine: COMMON NORMALS: full ROM and no lymphadenopathy GENERAL: Yes normal visual inspection and Yes trachea midline CERVICAL SPINE: Yes cervical ROM normal Lymph: LYMPHATIC: no lymphadenopathy noted Chest: COMMONS NORMALS: normal inspection of the chest Resp: COMMON NORMALS: normal respiratory effort and clear to auscultation luis alberto aterally AUSCULTATION: clear to auscultation bilaterally Cardio: COMMON NORMALS: regular rhythm, S1 normal heart sound present, S2 normal heart sound present and Peripheral pulses 2+ throughout RHYTHM: regular rhythm HEART SOUNDS: S1 normal heart sound present and S2 normal heart sound present PERIPHERAL PULSES: Peripheral pulses 2+ throughout GI: COMMON NORMALS: Soft to palpation and non-tender INSPECTION: Yes normal to inspection PALPATION: Yes Soft to palpation : COMMON NORMALS: Yes no CVA tenderness BLADDER/KIDNEY EXAM: Yes no CVA tenderness Back/Pelvis: COMMON NORMALS: no CVA tenderness and thoracic and lumbar spine normal to inspection Extremity: COMMON NORMALS: normal to inspection, full ROM, capillary refill normal, no clubbing, cyanosis or edema and no pedal edema GENERAL: Yes normal exam except as noted RIGHT LOWER EXTREMITY: Yes knee joint Right knee: Yes inspection (normal, w/o erythema/edema), Yes palpation (pain medial, at the patellar joint line), Yes ROM (Full flexion-extension noted, pain with flexion at 90 degrees and extension) and Yes neurovascular exam (Distally intact) Neuro: COMMON NORMALS: patient oriented x3 and no focal motor deficits SENSORIUM/ORIENTATION: Yes alert Psych: COMMON NORMALS: mental status grossly normal, Normal thought process present and cooperative ACTIVITY/MOTOR BEHAVIOR: Yes appropriate eye contact THOUGHT PROCESS: Normal thought process present Skin: COMMON NORMALS: no rashes or lesions noted and turgor normal GENERAL SKIN EXAM: no rashes or lesions noted and turgor normal Course ED course: 65-year-old female patient presents to the emergency department with right knee pain, she did not sustain injury or trauma; she has history of right knee pain with CT scan completed approximately 1 year ago that revealed osteoarthritis. Arthritic narrowing medially noted on x-ray completed today. She remains on Eliquis, not able to tolerate oral NSAIDs; prescription of Voltaren gel along with instruction for warm moist heat/cool compresses alternating suggested. She was requesting referral to orthopedist for possible injection. Social service referral placed to help with referral. Vital Signs: Vital signs: Vital Signs Temperature 97.9 F 05/29/20 16:47 Pulse Rate 81 05/29/20 16:47 Respiratory Rate 18 05/29/20 16:47 Blood Pressure 165/56 05/29/20 16:47 Pulse Oximetry 97 05/29/20 16:47 MDM - Extremity (Nontraumatic) Imaging Data^: Xray Ortho: My impression: Right knee 3 view, narrowing to the medial aspect of the joint; osteoarthritis, radiology interpretation pending Radiologist's impression: [address] [address] XRay Report Signed Patient: Roxy Carlos Unit #: [id number] : 1955 Age/Sex: 65 / F ADM Date: 05/29/20 Loc: ER Room/Bed: Attending Dr: Ordering Provider/Ordering MD: Darcy Rae Date of Service: 05/29/20 Procedure(s): XR knee RT 3V* [id number] Accession Number(s): [id number] Report Number: [id number] PROCEDURE INFORMATION: Exam: XR Right Knee Exam date and time: 05/29/2020 5:05 PM Age: 65 years old Clinical indication: Pain; Knee; Right; Additional info: RT knee pain TECHNIQUE: Imaging protocol: XR Right knee. Views: 3 views. COMPARISON: No relevant prior studies available. FINDINGS: Bones/joints: Chondrocalcinosis. Severe patellofemoral compartment primary osteoarthritis. Moderate to severe medial knee compartment primary osteoarthritis. Mild to moderate lateral knee compartment primary osteoarthritis. Soft tissues: Loss of cartilage space in the medial knee compartment. Nonemergent MRI may be helpful to rule out medial meniscal pathology. XR/XR knee RT 3V* [id number] IMPRESSION: 1. Loss of cartilage space in the medial knee compartment. Nonemergent MRI may be helpful to rule out medial meniscal pathology. 2. Severe patellofemoral compartment primary osteoarthritis. 3. Moderate to severe medial knee compartment primary osteoarthritis. 4. Mild to moderate lateral knee compartment primary osteoarthritis. Dictated By: Christiano Kim MD Signed By: Christiano Kim MD Signed Date/Time: 05/29/201754 DD/ 53 Discharge Plan Discharge Patient Disposition: Home Clinical Impression: Osteoarthritis of right knee Qualifiers: Osteoarthritis type: primary Qualified Code(s): M17.11 - Unilateral primary osteoarthritis, right knee Condition: Stable Prescriptions: New Voltaren 1 % gel 4 g topical QID Qty: 100 RF: 0 No Action diltiazem HCl [Cartia XT] 120 mg capsule,extended release 24hr 120 mg PO DAILY RF: 0 Januvia 50 mg tablet 50 mg PO DAILY RF: 0 Eliquis 5 mg tablet 5 mg PO BID RF: 0 lisinopril 20 mg tablet 20 mg PO BID RF: 0 diphenhydramine HCl [Allergy Relief(diphenhydramin)] 25 mg tablet 25 mg PO BID PRN (Reason: ALLERGIES) RF: 0 levothyroxine 100 mcg tablet 100 mcg PO DAILY RF: 0 vitamin B complex [B Complex-Vitamin B12] Tablet 1 tab PO DAILY RF: 0 cholecalciferol (vitamin D3) 2,000 unit tablet,chewable 2,000 unit PO BID RF: 0 multivitamin [Multiple Vitamins] Tablet 1 tab PO DAILY RF: 0 pravastatin 10 mg tablet 40 mg PO BEDTIME RF: 0 tramadol 50 mg tablet 50 mg PO BID PRNRF: 0 Spiriva Respimat 1.25 mcg/actuation mist 2 puff inhalation DAILY Qty: 4 RF: 3 albuterol sulfate 90 mcg/actuation HFA aerosol inhaler 2 puff INHALATION Q4H PRN (Reason: Shortness Of Breath) Qty: 18 RF: 3 montelukast [Singulair] 10 mg tablet 10 mg PO DAILY Qty: 30 RF: 3 budesonide-formoterol [Symbicort] 80-4.5 mcg/actuation HFA aerosol inhaler 2 puff inhalation BID Qty: 10.2 RF: 3 Tylenol 325 mg Tablet 325 mg PO QID PRN (Reason: Pain) RF: 0 triamcinolone acetonide 0.1 % cream See Rx Instructions .ROUTE .COMPLEX RF: 0 gabapentin 300 mg capsule 300 mg PO DAILY RF: 0 ketoconazole 2 % cream See Rx Instructions .ROUTE .COMPLEX RF: 0 Discharge Orders: Discharge ED (Routine); Ordered 05/29/20 Ordered By: Darcy Rae Referrals: Merline Vaca FNP [Primary Care Provider] - Discharge Diet: Usual diet Discharge Activity: Limit activity as instructed Patient Instructions: Osteoarthritis (ED), Knee Pain (ED), Opioid Safety Activity Restrictions/Additional Instructions: 4% lidocaine roll-on [id number] is suggested, use as directed Prescription of Voltaren gel has been provided, apply as directed May take Tylenol 1 g 3 times daily as needed for breakthrough pain Continue prescribed tramadol for pain Return the emergency department if you develop redness, calf pain or other concerning symptoms of the right lower extremity Referral to orthopedic provider has been placed, nursing home social worker will be contacting you with an appointment Coding Level of Care Code ED Boat Diesel Motor Mechanic for Patti Fwalex Exam Comprehensive
[2020-05-29] MEDS: acetaminophen 500 mg Tablet 1000 MG PO (17:20)
[2020-05-29 18:16] VITALS: BP 142/89; PULSE 78; RESP 17; O2SAT 96
--- NOTE | 2020-05-31 10:40 | DCPLANNER ---
refractory manager had message to schedule a follow up appointment for patient with ortho for a consult for possible injection/OA treatment. refractory manager called the ortho clinic, spoke with Vickie, gave clinic patients information. refractory manager was told that patients information would be printed and reviewed. Clinic will call patient with appointment information.
--- NOTE | 2020-06-04 14:15 | DCPLANNER ---
Patient had a follow up appointment scheduled for 06.02.[address] Foss at [facility] - patient did attend appointment.
== END 2020-05-29 18:16 | disposition home or self-care (01) ==
PROVIDERS: Emergency Provider Nurse Practitioner Family; PCP Nurse Practitioner Family
DX: M17.11 Unilateral primary osteoarthritis, right knee (principal); Z79.01 Long term (current) use of anticoagulants; F17.210 Nicotine dependence, cigarettes, uncomplicated
CPT/HCPCS: 73562; 99283

== ENCOUNTER 2020-10-07 09:15 | Outpatient (CLI) | payer MEDICARE, MEDICAID, SELFPAY ==
--- NOTE | 2020-10-07 09:21 | MM_ITS ---
WS: [id number] Exam: [place] [id number] Date/Time of Exam: 10/07/2020 9:22 AM Reason For Exam: SCREENING VIEWS: MLO and CC views both breasts. Comparison made with prior exam of 04/07/2014, 03/01/2015, 03/21/2016 and 09/16/2019. Findings: There was no sign of mass, architectural distortion or suspicious calcification in either breast. Fa tty MM/[place] [id number] Impression: BI-RADS: 2-Benign FOLLOW-UP: 1 Year Follow-up This mammogram was also analyzed by the Computer Aided Detection System R2 Imag e Lockstitch Cup Setter.
== END 2020-10-07 09:16 | disposition home or self-care (01) ==
LOC: RADSHAW 09:19
PROVIDERS: PCP Nurse Practitioner Family; Visit Provider Nurse Practitioner Family
DX: Z12.31 Encounter for screening mammogram for malignant neoplasm of breast (principal)
CPT/HCPCS: 77067

== ENCOUNTER → 2020-12-07 09:28 | Outpatient (BNVA) | payer MEDICARE, MEDICAID, SELFPAY | PROVIDERS: PCP Nurse Practitioner Family; Visit Provider Orthopaedic Surgery | DX: Z01.812 Encounter for preprocedural laboratory examination (principal); Z20.822 Contact with and (suspected) exposure to COVID-19 | CPT/HCPCS: 87635 ==

== ENCOUNTER 2020-12-13 12:15 | Observation (INO) | payer MEDICARE, MEDICAID, SELFPAY ==
[2020-12-02 11:10] VITALS: BMI 31.7
--- NOTE | 2020-12-02 11:48 | ANES.PREANE2 ---
Pre-Anesthetic Assessment Pre-Anesthetic Assessment: Height/Weight: Height 1.63 m Weight 83.915 kg Proposed Procedure: Operation Date: 12/13/20 09:35 Proposed Procedures p Total Knee Arthroplasty 41752 M17.11(Right) - Max Foss MD Was Beta Rocael taken within 24 hours: N/A Was Clonidine taken within 24 hours: N/A Social: Social History: Tobacco and No alcohol Exam: Pre-Anes Outpt Exam: alert, oriented x 3 and regular rate & rhythm Airway: Submandibular: WNL Cervical ROM: WNL MP: 2 Dentition: False Pulmonary: Pulmonary: COPD and Sleep apnea CV/HEM: CV/HEM: DVT and HTN Comments: h/o PE Metabolic: Metabolic: Hyperlipidemia, Morbid obesity and Thyroid Musc/skel: Musc/skel: OA/DJD Anesthetic Plan: ASA status: 3 Anesthesia: Regional (specify below) (SAB with adductor blk) Risk of > 500 ml blood loss (7ml/kg in children): No PFSH Anesthesia PFSH: Family History Other Cancer Diabetes Hypertension Stroke Social History Smoking and tobacco status: current some day smoker cigarettes Years cigarettes smoked: 20 Quit status (tobacco): considering quitting Second hand smoke exposure: Yes Smoking risk assessment/counseling performed?: Yes Alcohol intake: never Lives independently: Yes Household members: none Housing: House Marital status: Life Partner Current occupational status: disabled Pets and animals: Yes History of recent travel: No Current gender identity: Female Data Anesthesia Cardiac Studies: No Data to Display
[2020-12-13] VITALS (33 sets, daily range): BP systolic 109–159; BP diastolic 60–81; PULSE 62–100; RESP 10–28; TEMP 36.3–36.9; O2SAT 87–100; BMI 31.4
[2020-12-13 07:52] LABS: Glucose Point of Care 150 mg/dL (70-110)
[2020-12-13] MEDS: gabapentin 300 mg Capsule PO ×2 (07:54→18:24)
[2020-12-13] MEDS: oxyCODONE 20 mg ER (12 HR) Tablet PO (07:54)
[2020-12-13] MEDS: acetaminophen 500 mg Tablet 1000 MG PO ×2 (07:56→16:48)
[2020-12-13] MEDS: CELEcoxib 200 mg Capsule 400 MG PO (07:56)
[2020-12-13] MEDS: sodium chloride 0.9% 1,000 ML 30 ML IV (07:57)
[2020-12-13 08:55] LABS: Basophils # 0.1 10^3/uL (0.0-0.1); Basophils % 0.9 %; Eosinophils # 0.2 10^3/uL (0.0-0.8); Eosinophils % 3.6 %; Hemoglobin 14.1 g/dL (11.5-15.3); Lymphocytes # 2.6 10^3/uL (0.8-4.8); Lymphocytes % 38.4 %; Mean Corpuscular Hemoglobin 26.6 pg (28.0-34.0); Mean Corpuscular Volume 82.9 fl (81-99); Mean Platelet Volume 9.8 fL (7.4-10.4); Monocytes # 0.4 10^3/uL (0.2-0.9); Monocytes % 6.2 %; Neutrophils # 3.38 10^3/uL (1.8-7.7); Neutrophils % 50.7 %; Nucleated Red Blood Cells % 0 %; Platelet Count 300 10^3/cmm (130-400); Red Blood Count 5.31 10^6/uL (4.1-5.3); Red Cell Distribution Width 14.6 % (12.1-15.1); White Blood Count 6.7 10^3/uL (4.0-10.0)
[2020-12-13 09:18] LABS: Anion Gap 13.9 (5-19); Blood Urea Nitrogen 8 mg/dL (8-23); Carbon Dioxide 29 mmol/L (22-29); Chloride 105 mmol/L (98-107); Creatinine Clr Calc Pharmacy 73.4741; Glomerular Filtration Rate 100.3 mL/min (90-130); Glucose 147 mg/dL (65-115); Osmolality Calculated 299 mOsm/kg (285-295); Potassium 3.9 mmol/L (3.5-5.1); Sodium 144 mmol/L (136-145)
--- NOTE | 2020-12-13 09:29 | P.ANESUD_ITS ---
Pre-Anesthetic Update Pre-Anesthetic Assessment: Date of Surgery/Procedure: 12/13/20 Preop [place] gnosis: Osteoarthritis Right knee Proposed Procedure: Operation Date: 12/13/20 09:35 Proposed Procedures p Total Knee Arthroplasty 67637 M17.11(Right) - Max Foss MD Any changes to Pre-Anesthetic Assessment?: No Last Intake: Intake Last Liquid Date 12/12/20 Last Liquid Time 09:00 Last Solid Date 12/12/20 Last Solid Time 21:00 Labs Last 48hrs: Laboratory Results - last 48 hr 12/13/20 12/13/20 12/13/20 07:50 07:50 07:50 WBC 6.7 RBC 5.31 H Hgb 14.1 Hct 44.0 MCV 82.9 MCH 26.6 L MCHC 32.0 RDW 14.6 Plt Count 300 MPV 9.8 Neut % (Auto) 50.7 Lymph % (Auto) 38.4 [place] % (Auto) 6.2 Eos % (Auto) 3.6 Baso % (Auto) 0.9 Neut # (Auto) 3.38 Lymph # (Auto) 2.6 [place] # (Auto) 0.4 Eos # (Auto) 0.2 Baso # (Auto) 0.1 Nucleated RBC % (a uto) 0 Nucleated RBCs # 0.0 Sodium 144 Potassium 3.9 Chloride 105 Carbon Dioxide 29 Anion Gap 13.9 BUN 8 Creatinine 0.6 GFR Calculation 100.3 Glucose 147 H POC Glucose 150 H Calculated Osmolal ity 299 H Calcium 9.0 Vitals: Temperature 97.4 F L 12/13/20 07:39 Temperature Source Temporal Artery S can 12/13/20 07:39 Pulse Rate 74 12/13/20 07:39 Respiratory Rate 17 12/13/20 07:39 Blood Pressure 140/81 12/13/20 07:39 Blood Pressure Marcia n 100 12/13/20 07:39 Pulse Oximetry 97 12/13/20 07:39 Oxygen Delivery Me thod 12/13/20 07:39 Exam: Pre-Anes Outpt Exam: alert, oriented x 3, clear to auscultation bilaterally and regular rate & rhythm Cardiac Studies: No Data to Display
--- NOTE | 2020-12-13 09:29 | ANES.PROC ---
Anesthesia Procedures Procedure/Date: 12/13/20 Nerve Block ^: Nerve Block 1: Main Anesthesia: spinal anesthesia block Time Out Performed: Yes Consent: requested by attending/covering physician, from patient, from other, risks and benefits reviewed and patient agrees to proceed Nerve block location: adductor canal (R) Anesthesia monitors applied: pulse oximetry, EKG and BP cuff Nerve block position: supine Anesthetic Used: ropivicaine 0.5% and with decadron (4mg) Amount of anesthesia used (mL): 30 Ultrasound used to: recognize landmarks and visualize and ID femerol nerve Nerve Stimulator Used?: No Interscalene/Femoral BLK: 4 stimuplex 21 g needle used for position and inplane approach, visualize local anesthetic spread and no vascular puncture identified Injection: neg aspiration of heme Patient Tolerated Procedure: well and no complications Complications: none
--- NOTE | 2020-12-13 09:29 | SUR.PREOP ---
Nerve block was performed by Dr. Gutierrez in Pre-op. Timeout was competed, patient tolerated procedure well.
--- NOTE | 2020-12-13 09:53 | P.HP_ITS ---
Same Day Surgery H&P Indication for Procedure/HPI DATE OF PROCEDURE: December 13, 2020 CHIEF COMPLAINT/INDICATIONFOR SURGICAL PROCEDURE: Osteoarthritis right knee here for total knee arthroplasty PREOP DIAGNOSIS: Osteoarthritis Right knee PLANNED PROCEDRUE: Operation Date: 12/13/20 09:35 Proposed Procedures p Total Knee Arthroplasty 01152 M17.11(Right) - Max Foss MD 65-year-old female with progressive right knee pain. She has difficulty ambulating anything but short distances. She has failed medical management including corticosteroid injections and Ultram. She is on chronic anticoagulant is not a candidate for anti-inflammatories. She feels that she has a significant loss of quality of life and is here for elective right total knee artrhroplasty. Medications/Allergies* Home Medications Medication Instructions Recorded Confirmed Type apixaban 5 mg tablet 5 mg PO BID 04/17/19 12/13/20 History cholecalciferol (vitamin D3) 50 2,000 unit PO BID tab 04/17/19 12/13/20 History mcg (2,000 unit) chewable tablet diltiazem HCl 120 mg 240 mg PO DAILY 04/17/19 12/13/20 History capsule,extended release 24 hr diphenhydramine HCl 25 mg tablet 25 mg PO BID PRN tab 04/17/19 12/13/20 History levothyroxine 100 mcg tablet 100 mcg PO DAILY 04/17/19 12/13/20 History lisinopril 20 mg tablet 20 mg PO BID 04/17/19 12/13/20 History multivitamin 1 tab PO DAILY 04/17/19 12/13/20 History sitagliptin 50 mg tablet 50 mg PO DAILY 04/17/19 12/13/20 History vitamin B complex 1 tab PO DAILY tab 04/17/19 12/13/20 History gabapentin 300 mg PO DAILY 06/22/19 12/13/20 History pravastatin 10 mg tablet 40 mg PO BEDTIME tab 02/04/20 12/13/20 History clindamycin HCl 300 mg PO TID 12/02/20 12/13/20 History Allergies/Adverse Reactions Allergy/AdvReac Type Severity Reaction Status Date / Time ampicillin Allergy ALGY-Hives Verified 12/13/20 07:31 erythromycin base Allergy ALGY-Hives Verified 12/13/20 07:31 Penicillins Allergy ALGY-Hives Verified 11/01/21 07:31 Current Medications: Generic Name Dose Route Start Last Admin Trade Name Rylan PRN Reason Stop Dose Admin Sodium Chloride 1,000 mls @ 30 mls/hr 12/13/20 07:30 12/13/20 07:57 Sodium Chloride 0.9% IV 12/14/20 07:29 30 mls/hr .Q24H RON Administration Pertinent History/Comorbid Conditions* Family History (Updated 04/17/19 @ 14:05 by Sandra Saleem MA) Diabetes Cancer Hypertension Stroke Social History Smoking and tobacco status: current some day smoker cigarettes Years cigarettes smoked: 20 Quit status (tobacco): considering quitting Second hand smoke exposure: Yes Smoking risk assessment/counseling performed?: Yes Alcohol intake: never Lives independently: Yes Household members: none Housing: House Marital status: Life Partner Current occupational status: disabled Pets and animals: Yes History of recent travel: No Current gender identity: Female Pertinent Exam Findings alert, oriented x 3, clear to auscultation bilaterally and regular rate & rhythm Recommendations Surgery/Procedure today Coding Level of Care Code Acute Hotel Dining Room Cashier for Patti Vernon
[2020-12-13] MEDS: tranexamic acid 1,000 mg/10mL SDV 1000 MG IV (10:50)
[2020-12-13] MEDS: tranexamic acid 1,000 mg/10mL SDV 1000 MG IRRIGATION (11:08)
[2020-12-13] MEDS: EPINEPHrine 1 mg/mL INJ XX (11:09)
[2020-12-13] MEDS: ketorolac 30 mg/mL INJ XX (11:09)
--- NOTE | 2020-12-13 12:27 | XRR_ITS ---
PROCEDURE INFORMATION: Exam: XR Right Knee Exam date and time: 12/13/2020 12:27 PM Age: 65 years old Clinical indication: Device placement; Joint replacement hardware; Prior surgery; Surgery date: Post-operative (0-2 days); Additional info: Right total knee arthroplasty TECHNIQUE: Imaging protocol: XR Right knee. Views: 1 or 2 views. COMPARISON: CR XR knee RT 3V* [id number] 05/29/2020 5:17 PM FINDINGS: Bones/joints: The patient has undergone recent insertion of a total knee prosthesis. No fractures are seen. Some gas is present in the soft tissues from the recent surgery. Soft tissues: See Bones/joints finding. XR/XR knee RT 1-2V [id number] IMPRESSION: Satisfactory appearance of the total knee prosthesis. Radiation Dose CTDIVOL = (mGy): DLP = (mGy-cm)
--- NOTE | 2020-12-13 12:29 | P.OP_ITS ---
Operative Report Date of procedure: December 13, 2020 Pre-op Diagnosis: Osteoarthritis Right knee Post-op diagnosis: same Post-op Findings: Same Procedure Done: Right total knee arthroplasty Pathology: none sent Anesthesia: General Estimated blood loss (mL): 200 Complications: None Findings: The patient had eburnated bone over the medial femoral condyle medial tibial plateau patella and trochlea Condition: stable Disposition: PACU Procedure: The patient was taken to the operating room. Patient was given 1 g of tranexamic acid . The above anesthesia provided by the anesthesia service. A timeout was performed. The patient was prepped and draped in the usual fashion with the lower extremity exposed. A anterior incision was made, midline, from a point proximal to the patella to the distal tibial tubercle. The knee was entered through a medial parapatellar approach. The patella could be displaced laterally and the knee flexed. The patellar fat pad was resected to provide better visibility. Retractors were placed medially and laterally adjacent to the tibial plateau. The femoral canal was drilled in line with the longitudinal axis of the femur. Intramedullary femoral guide for used to make a distal femoral cut in 5 degrees of valgus, resecting 8 mm from the more prominent condyle. Next the extra medullary tibial guide was placed in alignment with the longitudinal axis of the tibia. The cutting guides were set to remove just over 9 mm from the high tibial plateau. The proximal tibia was then cut. The femoral measuring guide was then placed over the distal femur. Rotation was verified checking the relationship of the guide to the condyle and the trochlear groove. The femur was measured and cut for the desired femoral component. The desired tibial baseplate was then chosen. A trial reduction with the femur tibial baseplate and polyethylene was done, assuring that the knee was stable throughout full motion. Ligament balancing involved nothing more than a release of the deep medial collateral ligament.The tibia was prepared for the tibial baseplate. Patellar thickness was then measured. The patella was cut removing articular cartilage and prepared for appropriate size patellar button. surfaces were cleaned with a gentamicin solution. The femur tibia and patella were then press-fit into place. The posterior capsule and collateral ligaments were then injected with a solution of 100 mL of 0.2% ropivacaine, 1 mL of a 1:1000 epinephrine solution, 30 mg of Toradol, and 1 g of tranexamic acid. final polyethylene component was then snapped into place into the tibia. The extensor retinaculum was closed with a running 1 Stratafix.. The subcutaneous tissues were closed with 2-0 Vicryl and the skin was closed with a running 4-0 Stratafix. The wound was covered with a Dermabond Prinio dressing. It was covered with 4xrs and a compressive Tubigauae was applied. The patient was taken to recovery room in stable condition. [employer] total knee arthroplasty components were used includin) Size 3 triathalon cruciate retaining femoral component 2) Size 3 Tritanium tibial component 3) 32 mm /10 mm thickness Tritanium asymetric patella 4) Size 3/9 mm thickness CR tibial bearing insert
[2020-12-13] MEDS: fentaNYL 50 mcg/mL INJ 2mL IVP ×2 (12:30→12:39)
--- NOTE | 2020-12-13 12:46 | SUR.PHASEI ---
1223 PT TO PACU AWAKES TO VOICE ORAL AIRWAY OUT QUICKLY AFTER PT HANDOFF, PT FOLLOWS VERBAL COMMANDS , VSS , IV PATENT TO RT WRIST, RT KNEE DRESSING D/I WITH FIRST ICE TO SITE, DISTAL FOOT PINK WARM WITH STRONG REGULAR PULSE NOTED AND MARKED, BILAT SCDS ON, 1245 PT ALERT ON RA TRIAL NOW, PT C/O OF PAIN EARLIER SEE MEDS GIVEN , AND X RAY NOW DONE,
[2020-12-13] MEDS: morphine 4 mg/mL SDV 1 mL IVP (12:57)
--- NOTE | 2020-12-13 13:01 | SUR.PHASEI ---
PT CONTINUES TO COMPLAIN OF PAIN TO RT KNEE PT ON RA TAKING ICE CHIPS PT RATES PAIN AT 4 SEE MED GIVEN IV PATENT
--- NOTE | 2020-12-13 13:14 | SUR.PHASEI ---
PT ROOM NOT READY, PT NOW IN HOLDING , MOVED TO OPS ROOM 12 PT AWAKES EASILY TO VOICE, PT STATES PAIN IS MUCH BETTER, PT SLEEPS IF NOT AWAKENED PT FIRST ICE IN PLACE PT DENIES FEELING THE COLD ICE, PT HAD A POPLITEAL BLOCK PRE SURGERY , DISTAL FOOT PINK WARM STRONG REGULAR PULSE NOTED.
[2020-12-13] MEDS: CELEcoxib 200 mg Capsule PO (16:48)
[2020-12-13] MEDS: sodium chloride 0.9% 1,000 ML 100 ML IV (16:49)
[2020-12-13 18:04] LABS: Glucose Point of Care 332 mg/dL (70-110)
[2020-12-13] MEDS: sennosides-docusate Tablet 2 TAB PO (18:24)
[2020-12-13] MEDS: insulin lispro 100 unit/1 mL SUBCUT (18:24)
[2020-12-13] MEDS: lisinopril 20 mg Tablet PO (18:24)
[2020-12-13] MEDS: mupirocin oint 22 gm 1 APPLIC TOPICAL (18:25)
--- NOTE | 2020-12-13 18:55 | ANE.PACU2 ---
Inpatient post-anesthesia follow up: Airway intact: Yes Vital signs: Temperature 97.7 F Pulse Rate 74 Respiratory Rate 18 Blood Pressure 117/63 Pulse Oximetry 97 Oxygen Delivery Me thod Room Air Oxygen Flow Rate 3 Fraction of Inspir ed Oxygen Hydration adequate: Yes Nausea and vomiting: No Pain level: 3 Mental status: Baseline
[2020-12-13] MEDS: atorvastatin 40 mg Tablet 20 MG PO (20:24)
[2020-12-13] MEDS: oxyCODONE 5 mg IR Tab/Cap PO (20:29)
[2020-12-13 20:37] LABS: Glucose Point of Care 270 mg/dL (70-110)
[2020-12-14] VITALS (7 sets, daily range): BP systolic 100–130; BP diastolic 54–67; PULSE 70–88; RESP 16–18; TEMP 36.6–36.9; O2SAT 93–96
[2020-12-14] MEDS: acetaminophen 500 mg Tablet 1000 MG PO ×2 (00:17→06:29)
[2020-12-14] MEDS: sodium chloride 0.9% 1,000 ML 100 ML IV (02:23)
[2020-12-14] MEDS: CELEcoxib 200 mg Capsule PO (02:25)
[2020-12-14 02:32] LABS: Hemoglobin 10.8 g/dL (11.5-15.3)
[2020-12-14] MEDS: oxyCODONE 5 mg IR Tab/Cap PO ×2 (06:29→13:42)
[2020-12-14 06:30] LABS: Glucose Point of Care 189 mg/dL (70-110)
[2020-12-14] MEDS: lisinopril 20 mg Tablet PO (08:48)
[2020-12-14] MEDS: sennosides-docusate Tablet 2 TAB PO (08:48)
[2020-12-14] MEDS: montelukast sodium 10 mg Tablet PO (08:48)
[2020-12-14] MEDS: insulin lispro 100 unit/1 mL SUBCUT ×2 (08:49→13:42)
[2020-12-14] MEDS: levothyroxine 100 mcg Tablet PO (08:49)
[2020-12-14] MEDS: dilTIAZem ER (24HR) 120 mg Capsule 240 MG PO (08:49)
[2020-12-14] MEDS: gabapentin 300 mg Capsule PO (08:54)
--- NOTE | 2020-12-14 10:26 | P.DS_ITS ---
Discharge Providers Date of Admission: 12/13/20 12:15 Date of Discharge: December 14, 2020 Attending Provider at Admission: Max Foss MD Attending Provider at Discharge: Max Foss MD Primary Care Provider: RACHEL Voss Diagnoses at Discharge Discharge Diagnosis (1) Status post right knee replacement: Status: Acute (2) Osteoarthritis of right knee: Status: Resolved Qualifiers: Osteoarthritis type: primary Qualified Code(s): M17.11 - Unilateral primary osteoarthritis, right knee (3) History of pulmonary embolism: Status: Acute Reason for Visit Reason for Visit: arthritis of right knee Hospital Course Hospital Course The patient tolerated surgery well. They remained hemodynamically stable. They was resumed on her Eliquis and placed in sequential compression dressing for DVT prophylaxis. The patient was mobilized with therapy beginning the day of surgery and by the first postoperative day independent with the walker. As the pain was adequately controlled and they were fully mobile they were discharged home. Physical Exam Narrative: EXAM NARRATIVE: On the day of discharge his knee incision was clean. They had no drainage. There is minimal swelling in the thigh and knee and the calf. No distal neurovascular deficits were noted Discharge Data Data Completed and Pending: Completed Studies During Hospitalization Category Date Time Status XR knee RT 1-2V 7 3560 Stat Exams 12/13/20 12:27 Completed Labs from last 24 hours 12/14/20 12/14/20 12/13/20 06:14 01:59 20:30 Hgb 10.8 L POC Glucose 189 H 270 H 12/13/20 17:45 Hgb POC Glucose 332 H Vitals: Last Vital Signs Temp 98.5 F 12/14/20 04:00 Pulse 74 12/14/20 04:00 Resp 18 12/14/20 06:29 BP 102/59 12/14/20 04:00 Pulse Ox 95 12/14/20 06:29 Discharge Plan Discharge Patient Disposition: Home Condition: Stable Prescriptions: New oxycodone 5 mg Tablet 5 mg PO Q4H PRN (Reason: Moderate Pain) 7 Days Qty: 40 RF: 0 acetaminophen 500 mg Tablet 1,000 mg PO Q8H 14 Days Qty: 84 RF: 0 gabapentin 300 mg Capsule 300 mg PO BID 7 Days Qty: 14 RF: 0 celecoxib 200 mg Capsule 200 mg PO Q12H 14 Days Qty: 28 RF: 0 Discontinued mupirocin 2 % ointment 1 applic topical BID Qty: 15 RF: 0 No Action diltiazem HCl [Cartia XT] 120 mg capsule,extended release 24hr 240 mg PO DAILY RF: 0 Januvia 50 mg tablet 50 mg PO DAILY RF: 0 Eliquis 5 mg tablet 5 mg PO BID RF: 0 lisinopril 20 mg tablet 20 mg PO BID RF: 0 diphenhydramine HCl [Allergy Relief(diphenhydramin)] 25 mg tablet 25 mg PO BID PRN (Reason: ALLERGIES) RF: 0 levothyroxine 100 mcg tablet 100 mcg PO DAILY RF: 0 vitamin B complex [B Complex-Vitamin B12] Tablet 1 tab PO DAILY RF: 0 cholecalciferol (vitamin D3) 2,000 unit tablet,chewable 2,000 unit PO BID RF: 0 multivitamin [Multiple Vitamins] Tablet 1 tab PO DAILY RF: 0 pravastatin 10 mg tablet 40 mg PO BEDTIME RF: 0 montelukast [Singulair] 10 mg tablet 10 mg PO DAILY Qty: 30 RF: 3 gabapentin 300 mg capsule 300 mg PO DAILY RF: 0 clindamycin HCl 300 mg capsule 300 mg PO TID RF: 0 Discharge Orders: Discharge Order (Routine); Ordered 12/14/20 Ordered By: Max Foss Other Ambulatory Orders: DME: Patel (Order) Location: None Selected Ordered By: Max Foss Referrals: Max Foss MD [Physician] - 12/17/20 9:00 am Discharge Diet: Advance as tolerated Discharge Activity: Limit activity as instructed Patient Instructions: Opioid Safety Activity Restrictions/Additional Instructions: Okay to shower Keep Tubigauze sleeve in place for swelling. Okay to remove for hygiene. Apply FirstIce up to 20 min/hr for pain and swelling Take Celebrex twice a day for the next 15 days for pain , discontinue other anti-inflammatories Take Neurontin twice a day for 7 days. Take Tylenol 500mg (1-2 tabs) as needed 3 times a day for mild pain take oxycodone for breakthrough pain. Exercises per physical therapy. May weight-bear as tolerated on total knee arthroplasty Discharge Attestations Time Spent in Discharge Care*: other Quality Metrics Clinical Quality Measures During this hospital stay, did patient experience: None Coding Level of Care Code Acute [facility] note Diagnoses Status post right knee replacement Z96.651 Osteoarthritis of right knee M17.11 Osteoarthritis type: primary History of pulmonary embolism Z86.711
[2020-12-14 12:15] LABS: Glucose Point of Care 217 mg/dL (70-110)
[2020-12-14] MEDS: apixaban 5 mg Tablet PO (13:42)
--- NOTE | 2020-12-14 13:51 | PC.NURSE ---
discharge instructions given to patient and patient verbalized understanding of instructions. patient waiting on walker to be delivered and then she will call for her family for ride home. IRVIN Bean notified.
--- NOTE | 2020-12-14 15:00 | PC.NURSE ---
patient's walker arrived. patient taken to private vehicle via wheelchair by staff.
== END 2020-12-14 15:02 | disposition home or self-care (01) ==
LOC: MEDSURG 12:17
PROVIDERS: Anesthesiology; Admitting Provider Orthopaedic Surgery; PCP Nurse Practitioner Family; Visit Provider Orthopaedic Surgery
PROC: (CPT 27447; principal; 2020-12-13 09:25)
DX: M17.11 Unilateral primary osteoarthritis, right knee (principal); J44.9 Chronic obstructive pulmonary disease, unspecified; G47.33 Obstructive sleep apnea (adult) (pediatric); I10 Essential (primary) hypertension; E78.5 Hyperlipidemia, unspecified; E66.01 Morbid (severe) obesity due to excess calories; Z68.31 Body mass index [BMI] 31.0-31.9, adult; Z79.01 Long term (current) use of anticoagulants; Z79.899 Other long term (current) drug therapy; F17.210 Nicotine dependence, cigarettes, uncomplicated; Z86.711 Personal history of pulmonary embolism; Z86.718 Personal history of other venous thrombosis and embolism
CPT/HCPCS: 27447; 36415; 36416; 64447; 73560; 76942; 80048; 82962; 85018; 85025; 96372; 97110; 97116; 97161; 97165; C1776; G0378; J0171; J0690; J1100; J1580; J1815; J1885; J2250; J2270; J2704; J2795; J3010; J3490; J7030

== ENCOUNTER → 2021-01-12 08:26 | Outpatient (BNVA) | payer MEDICARE, MEDICAID, SELFPAY | PROVIDERS: PCP Nurse Practitioner Family; Visit Provider Orthopaedic Surgery | DX: Z96.651 Presence of right artificial knee joint (principal) | CPT/HCPCS: 73560; 73565 ==

== ENCOUNTER → 2021-05-16 12:34 | Outpatient (BNVA) | payer MEDICARE, MEDICAID, SELFPAY | PROVIDERS: PCP Nurse Practitioner Family; Referring Provider Nurse Practitioner Family; Visit Provider Podiatrist Foot & Ankle Surgery | DX: M20.41 Other hammer toe(s) (acquired), right foot (principal); M21.611 Bunion of right foot; L60.3 Nail dystrophy; F17.210 Nicotine dependence, cigarettes, uncomplicated | CPT/HCPCS: 73630; 99203; 99204 ==

== ENCOUNTER → 2021-05-17 08:19 | Outpatient (BNVA) | payer MEDICARE, MEDICAID, SELFPAY | PROVIDERS: PCP Nurse Practitioner Family; Visit Provider Orthopaedic Surgery | DX: Z96.651 Presence of right artificial knee joint (principal); M25.561 Pain in right knee | CPT/HCPCS: 99212; 99213 ==

== ENCOUNTER 2021-06-27 13:50 | Outpatient (CLI) | payer MEDICARE, MEDICAID, SELFPAY ==
--- NOTE | 2021-06-27 14:04 | XR_ITS ---
WS: [id number] DEXA (DUAL ENERGY X-RAY ABSORPTIOMETRY) Bone mineral density was performed using a [employer] machine. HISTORY: POSTMENOPAUSAL COMPARISON: 10/26/2016 Left forearm BMD: 0.902 g/cm2. T score: 0.3 Z score: 1.8 Total hip BMD: Left: 1.012 g/cm2. T score: 0.0 Z score: 0.7 Right: 1.035 g/cm2. T score: 0.2 Z score: 0.9 10 year probability of a major osteoporotic fracture is 10%. Compared to the prior study from 10/26/2016. Forearm bone mineral density has decreased by 5.8%. Bilateral hips bone mineral density has decreased by 8.1%. XR/XR DEXA axial skeleton* 84816 IMPRESSION: NORMAL BONE MINERAL DENSITY based upon the WHO classification for females. Sign ificant decrease in bone mineral density within the forearm and hips since the prior study.
== END 2021-06-27 13:51 | disposition home or self-care (01) ==
LOC: RAD 13:52
PROVIDERS: PCP Nurse Practitioner Family; Visit Provider Nurse Practitioner Family
DX: Z78.0 Asymptomatic menopausal state (principal)
CPT/HCPCS: 77080

== ENCOUNTER 2021-11-29 07:24 | Outpatient (CLI) | payer MEDICARE, MEDICAID, SELFPAY ==
[2021-11-29 08:20] LABS: Estmated Average Glucose 206; Hemoglobin A1C 8.8 % (4.0-6.0)
== END 2021-11-29 07:25 | disposition home or self-care (01) ==
LOC: LAB 07:27
PROVIDERS: PCP Nurse Practitioner Family; Visit Provider Podiatrist Foot & Ankle Surgery
DX: Z01.818 Encounter for other preprocedural examination (principal); R73.09 Other abnormal glucose
CPT/HCPCS: 36415; 83036

== ENCOUNTER → 2022-01-17 14:01 | Outpatient (BNVA) | payer MEDICARE, MEDICAID, SELFPAY | PROVIDERS: PCP Nurse Practitioner Family; Visit Provider Orthopaedic Surgery | DX: M67.912 Unspecified disorder of synovium and tendon, left shoulder (principal) | CPT/HCPCS: 20610; 73030; 99213 ==

== ENCOUNTER → 2022-05-03 09:01 | Outpatient (BNVA) | payer MEDICARE, MEDICAID, SELFPAY | PROVIDERS: PCP Nurse Practitioner Family; Visit Provider Podiatrist Foot & Ankle Surgery | DX: M20.41 Other hammer toe(s) (acquired), right foot (principal); M21.611 Bunion of right foot; L60.3 Nail dystrophy | CPT/HCPCS: 73630; 99214 ==

== ENCOUNTER 2022-05-26 06:08 | Day surgery (SDC) | payer MEDICARE, MEDICAID, SELFPAY ==
[2022-05-25 16:34] VITALS: BMI 33.6
[2022-05-26] VITALS (10 sets, daily range): BP systolic 124–158; BP diastolic 71–79; PULSE 69–95; RESP 10–18; TEMP 36.6–37.1; O2SAT 93–96
[2022-05-26] MEDS: gabapentin 300 mg Capsule PO (07:23)
[2022-05-26] MEDS: sodium chloride 0.9% 1,000 ML 30 ML IV (07:23)
[2022-05-26] MEDS: CELEcoxib 200 mg Capsule 400 MG PO (07:23)
--- NOTE | 2022-05-26 09:00 | P.HPUD_ITS ---
Surgery/Procedure H&P Update DATE OF PROCEDURE: May 26, 2022 DATE H&P PERFORMED: 05/03/22 CHANGES TO PREVIOUS DOCUMENTATION: Adding onychodystrophy as diagnosis. Adding procedure total matrixectomy left great toenail. PREOP DIAGNOSIS: Bunion and hammertoes right foot PLANNED PROCEDURE: Operation Date: 05/26/22 09:00 Proposed Procedures p Right bunionectomy with double osteotomy 15291,M79.671,M20.41, M21.611, L60.3, M67.01(Right) - ELSA Perez Double gena Osteotomy(Right) - ELSA Perez Right seond,third Hammertoe Correction 26092(Right) - ELSA Perez Flexor tendon transfer right foot.? CPT code 49419(Right) - ELSA Perez Annalee osteotomy right second metatarsa 65578(Right) - ELSA Perez Right gastrocnemius recession 24106(Right) - ELSA Perez Total matrixectomy left great toenail CPT code 63135
--- NOTE | 2022-05-26 09:00 | W.PM.OPSUD ---
Surgery/Procedure H&P Update DATE OF PROCEDURE: May 26, 2022 DATE H&P PERFORMED: 05/03/22 CHANGES TO PREVIOUS DOCUMENTATION: Adding onychodystrophy as diagnosis. Adding procedure total matrixectomy left great toenail. PREOP DIAGNOSIS: Bunion and hammertoes right foot PLANNED PROCEDURE: Operation Date: 05/26/22 09:00 Proposed Procedures p Right bunionectomy with double osteotomy 71109,M79.671,M20.41, M21.611, L60.3, M67.01(Right) - ELSA Perez Double gena Osteotomy(Right) - ELSA Perez Right seond,third Hammertoe Correction 69120(Right) - ELSA Perez Flexor tendon transfer right foot.? CPT code 74879(Right) - ELSA Perez Annalee osteotomy right second metatarsa 63540(Right) - ELSA Perez Right gastrocnemius recession 60641(Right) - ELSA Perez Total matrixectomy left great toenail CPT code 53989
[2022-05-26] MEDS: clindamycin 600 MG/50 ML PREMIX 100 MG IV (09:16)
--- NOTE | 2022-05-26 10:08 | P.ANESASSM_ITS ---
Pre-Anesthetic Assessment Height/Weight: Height 1.65 m Weight 91.626 kg Temp Pulse Resp BP Pulse Ox O2 Del Method 98 F 69 18 144/73 96 Room Air 05/26/22 06:30 05/26/22 06:30 05/26/22 06:30 05/26/22 06:30 05/26/22 06:30 05/26/22 07:18 Preop Diagnosis: Bunion and hammertoes right foot Operation Date: 05/26/22 09:00 Proposed Procedures p Right bunionectomy with double osteotomy 76938,M79.671,M20.41, M21.611, L60.3, M67.01(Right) - Franck Knox DPM s Double gena Osteotomy(Right) - Franck Knox DPM s Right seond,third Hammertoe Correction 33677(Right) - Franck Knox DPM s Flexor tendon transfer right foot.? CPT code 62356(Right) - Franck Knox DPM s Annalee osteotomy right second metatarsa 12723(Right) - Franck Knox DPM s Right gastrocnemius recession 26841(Right) - Franck Knox DPM Familial anesthetic complications: Was Beta Rocael taken within 24 hours: N/A Was Clonidine taken within 24 hours: N/A Last intake: Intake Last Liquid Date 05/25/22 Last Liquid Time 21:00 Last Solid Date 05/25/22 Last Solid Time 21:00 Social Tobacco and No alcohol Exam alert, oriented x 3, clear to auscultation bilaterally and regular rate & rhythm Airway Submandibular: within normal limits Cervical ROM: within normal limits Mallampati: Class II Dentition: chipped Pulmonary Asthma, Chronic Obstructive Pulmonary Disease and Sleep Apnea CV/HEM Atrial Fibrillation and Hypertension Metabolic Diabetes Mellitus, Hyperlipidemia and Thyroid Disease Musc/skel Lower Back Pain and Osteoarthritis/DJD Anesthetic Plan ASA status: 3 Anesthesia: Choice Medications/Allergies Home Medications Medication Instructions Recorded Confirmed Last Taken Type apixaban 5 mg tablet (Eliquis) 5 mg PO BID 04/17/19 05/25/22 05/21/22 History cholecalciferol (vitamin D3) 50 2,000 unit PO BID 04/17/19 05/26/22 05/25/22 History mcg (2,000 unit) chewable tablet diltiazem HCl 120 mg 240 mg PO DAILY 04/17/19 05/26/22 05/25/22 History capsule,extended release 24 hr (Cartia XT) diphenhydramine HCl 25 mg tablet 25 mg PO BID PRN ALLERGIES 04/17/19 05/26/22 05/25/22 History (Allergy Relief (diphenhydramine)) levothyroxine 100 mcg tablet 100 mcg PO DAILY 04/17/19 05/26/22 05/26/22 History lisinopril 20 mg tablet 20 mg PO BID 04/17/19 05/26/22 05/25/22 History multivitamin (Multiple Vitamins 1 tab PO DAILY 04/17/19 05/26/22 05/25/22 History tablet) sitagliptin phosphate 50 mg tablet 50 mg PO DAILY 04/17/19 05/26/22 05/25/22 History (Januvia) vitamin B complex (B 1 tab PO DAILY 04/17/19 05/26/22 05/25/22 History Complex-Vitamin B12 tablet) gabapentin 300 mg capsule 300 mg PO DAILY 06/22/19 05/26/22 05/25/22 History pravastatin 10 mg tablet 40 mg PO BEDTIME 02/04/20 05/26/22 05/25/22 History montelukast 10 mg tablet 10 mg PO DAILY #30 tabs 03/18/20 05/26/22 05/25/22 Rx (Singulair) raised toilet seat #1 ea 12/14/20 05/03/22 Unknown Rx tiotropium bromide 1.25 2 puff inhalation DAILY #4 grams 08/11/21 05/26/22 05/25/22 Rx mcg/actuation mist for inhalation (Spiriva Respimat) buspirone 5 mg tablet 5 mg PO BID 05/25/22 05/26/22 05/25/22 History escitalopram oxalate 10 mg tablet 10 mg PO DAILY 05/25/22 05/26/22 05/25/22 H istory glipizide 10 mg tablet, extended 10 mg PO DAILY 05/25/22 05/26/22 05/25/22 History release 24 hr insulin glargine 100 unit/mL (3 8 unit SUBCUT BEDTIME 05/25/22 05/26/22 05/25/22 History mL) subcutaneous pen (Lantus Solostar U-100 Insulin) ropinirole 0.5 mg tablet 0.5 mg PO BID 05/25/22 05/26/22 05/25/22 History Allergies Allergy/AdvReac Type Severity Reaction Status Date / Time ampicillin Allergy ALGY-Hives Verified 05/26/22 07:13 erythromycin base Allergy ALGY-Hives Verified 05/26/22 07:13 Penicillins Allergy ALGY-Hives Verified 05/26/22 07:13 Current Medications Generic Name Dose Route Start Last Admin Trade Name Freq PRN Reason Stop Dose Admin Sodium Chloride 1,000 mls @ 30 mls/hr 05/26/22 06:30 05/26/22 07:23 Sodium Chloride 0.9% IV 05/27/22 06:29 30 mls/hr .Q24H RON Administration PFSH Anesthesia Medical History DVT (deep venous thrombosis) Family History Other Cancer Diabetes Hypertension Stroke Social History Smoking and tobacco status: current some day smoker cigarettes Years cigarettes smoked: 20 Quit status (tobacco): considering quitting Second hand smoke exposure: Yes Smoking risk assessment/counseling performed?: Yes Alcohol intake: never Lives independently: Yes Household members: none Housing: House Marital status: Life Partner Current occupational status: disabled Pets and animals: Yes Current gender identity: Female Data Anesthesia Cardiac Studies: No Data to Display
--- NOTE | 2022-05-26 10:44 | XR_ITS ---
WS: [id number] EXAMINATION: XR foot RT 2V 78883 REASON FOR EXAM: OR PICS COMPARISON: 05/03/2022 ORDER DATE: 05/26/2022 10:44 AM X-RAY FINDINGS: 2 C-arm views are provided demonstrating bunionectomy surgical procedure with screw placement in the first metatarsal head and the surgical instrumentation superimposing the second digit. XR/XR foot RT 2V 76458 IMPRESSION: Total fluoroscopy time 7.9 seconds
[2022-05-26] MEDS: silver sulfadiazine cream 1% 50 gm 1 APPLIC TOPICAL (10:50)
--- NOTE | 2022-05-26 11:03 | PC.NURSE ---
Pt arrived to PACU, awake, denies any pain or nausea at this time. Dressings C/D/I, bilateral toes w/d, cap refill <3 seconds, able to wiggles toes. FOB elevated.
--- NOTE | 2022-05-26 11:05 | P.OP_ITS ---
Operative Report Date of procedure: May 26, 2022 Pre-op diagnosis: Right bunion deformity Right second hammertoe Onychodystrophy, left great toe. Post-op diagnosis: Same Procedure done: Right Chance bunionectomy. CPT code 27552 Right second hammertoe correction. CPT code 19461 Total matrixectomy left great toenail bed. CPT code 25215 Implants: 3.0 mm [employer] headed screw for Chance bunionectomy TenoTac 2.0 at right second hammertoe correction 0.62 K wire right second toe 3-0 Vicryl 4-0 Vicryl 4-0 nylon Specimens removed/disposition: None Pathology: None Surgeon: Franck Knox D.P.M. Bag Filler: Darcy Estimated blood loss: 5 66 IV fluids: 0 Urine output: None Complications: None Brief History: Pleasant 67-year-old female requesting surgical consultation in regards to multiple deformities of her right foot including a bunion, right second hammertoe and right third hammertoe.? This is something she has been anticipating for greater than a year.? She recently got her A1c below 8.0 and is ready to proceed with surgery.? Has failed conservative treatments consisting of wide accommodative shoes, orthotics, anti-inflammatories, stretching and activity modifications.? Her deformities cause pain daily with everyday living.? I reviewed at length with the patient, the risks, potential complications, benefits, alternatives, expectations, and typical outcomes associated with the surgery. The risks and potential complications were explained in detail, incl uding but not limited to infection, wound dehiscence or soft tissue complications, bleeding and hematoma, chronic edema, neuritis or nerve damage producing numbness or chronic pain, CRPS, failure to relieve pain or worsening pain, thick / painful / unsightly scar, limited motion / stiffness, malposition, delayed union, malunion, or nonunion, fracture, reaction to implants, anesthetic complications, venous thromboembolism, and deformity recurrence.? I discussed the notion of no regrets with the patient as it pertains to complications and outcomes. The patient seemed to understand the nature of the proposed care and required convalescence. They asked appropriate questions, answered to their satisfaction. They are aware no guarantees can be made as to a satisfactory outcome and they understand there may be other possible unforeseen complications or outcomes not listed here that will be treated accordingly if they arise. There were no written or implied guarantees given to the patient. They gave informed consent to proceed.? She is requesting be the second case of the day.? She will stop Eliquis May 22 5 days prior to surgery and resume on May 27 morning after surgery.? Anticipating protected weightbearing for 6 weeks postoperatively and may be longer pending her healing response.? Planning on bunionectomy with double osteotomy, right second plantar plate repair, right second and third hammertoe correction. The risks of phenol matrixectomy discussed with patient include prolonged postoperative drainage lack of complete destruction of the nail matrix resulting in re-growth of the nail or part of the nail, re-growth of the nail with deformity, infection of the surgical site, unpredictable tissue damage, periostitis, poor cosmetic results, allodynia, hyperalgesia, pain, scarring, bleeding, need for a subsequent procedure to correct any of the above. Procedure: Under mild sedation the patient was brought to the operating room and remained on the gurney in supine position. A timeout was performed. Anesthesia was then administered by the anesthesia service. Local anesthesia was injected by myself consisting of 30 cc of 0.5 sent Marcaine plain this was administered with 20 cc for a right male block and 10 cc of a right second ray block. Additional 20 cc of Exparel was infiltrated subcutaneously in a grid like fashion at the dorsum and medial and plantar aspect of the right foot. Well-padded pneumatic tourniquet was applied to the right ankle. The right lower extremity was scrubbed, prepped and draped utilizing normal aseptic technique. The right foot was exanguinated with Esmarch bandage and the tourniquet inflated to 250 mmHg. Attention was directed to the dorsal medial aspect of the right first metatarsal phalangeal joint where a linear longitudinal incision was made medial and parallel to the extensor houses longus tendon. Incision was made approximately 4 cm in length through skin with a #15 blade with dissection carried down through subcutaneous tissue to the layer of joint capsule utilizing sharp and blunt technique. Care was taken to retract and preserve neurovascular and tendinous structures. All bleeders were ligated and cauterized as necessary. A linear capsulotomy was performed in the head of the first metatarsal was released of its capsular and soft tissue attachments. The medial aspect and hypertrophy of bone was transected with a sagittal saw, angling the solid to protect the sesamoid apparatus. Bone wafer was passed from the operative field. Next utilizing a sagittal saw a chevron osteotomy from medial to lateral across the metaphyseal flare of the first metatarsal head and neck was performed with approximately 60 degree angle in the head of the first metatarsal was translated laterally reducing the intermetatarsal angle and placed in a more anatomically correct position followed by standard AO fixation utilizing a [employer] 28 3.0 mm headed screw with excellent bony apposition and compression noted. Care was taken to directly visualize the articular surface of the first metatarsal head and the screw did not violate the articular surface. This was also confirmed that hardware did not violate the first metatarsal phalangeal joint with AP, oblique and lateral views utilizing intraoperative C arm. The remaining metatarsal shelf medially was transected with a sagittal saw and passed from operative field followed by hand rasp to smooth all rough edges. The incision was flushed with copious amounts of sterile saline solution. Smooth range of mo tion at the right first metatarsophalangeal joint was appreciated intraoperatively. Improved anatomic alignment of the first metatarsal phalangeal also appreciated. The capsule was closed with 3-0 Vicryl, subcutaneous tissue was closed with 4-0 Vicryl and skin with 4-0 nylon. Attention was directed to the dorsal aspect of the right second metatarsophalangeal joint where a lazy S incision was performed coursing distally to the dorsal aspect of the second toe proximal interphalangeal joint. Extensor tendon was transected at the level of the proximal phalangeal joint and retracted proximally followed by resection of the proximal phalanx head and resection of the intermediate phalanx base. The incision was irrigated with copious months of sterile skin solution. [employer] TenoTac 2.0 was utilized per pharmacy informatics manager recommendation and package insert technique to effectively transfer the flexor tendons and augment the plantar plate this was done under dorsiflexion of the right second toe under tension. TenoTac 2.0 was fixated from plantar to dorsal with excellent apposition and compression noted. Next a K wire was integrated from the base of the intermediate phalanx out the distal aspect of the right second toe and integrated back into the proximal phalanx to the level of the TenoTac with excellent bony apposition and compression imparted at the proximal interphalangeal joint. This reduced the sagittal plane hammertoe contracture. K wire was bent at 90 degrees dorsally and covered with a Kristin ball. The incision was flushed with copious amounts of sterile skin solution and the extensor tendon was reapproximated utilizing 4-0 Vicryl. Skin reapproximated with 4-0 nylon both dorsally and plantarly at the right second toe. The incisions were then dressed with Adaptic, sterile 4 x 4's, Kerlix and Po wrap. Cam boot was applied to the right lower extremity and the tourniquet was then deflated with a prompt hyperemic response noted to the distal digits of the right foot. Patient tolerated the procedure and anesthesia well and was transferred to the PACU with vital signs stable and vascular status intact. Following a period of postoperative monitoring she will be discharged home. May be weightbearing protected with cam boot at all times and below threshold of pain. Patient declined pain medication, plans on taking Tylenol. Was given at home care instructions and follow-up in podiatry clinic next week for her first dressing change. 6 cc of 1% lidocaine plain was injected in a digital block fashion along the left hallux and a hallux block fashion. Once anesthetized, the left hallux was painted with Betadine, and a tourniquet was placed about the left hallux. Using a spatula the skin around the nail is loosened and the nail was loosened from the nail bed. Once the nail was completely loose using a hemostat the nail was removed in total. Using a curette the nail matrix was curetted for any remaining nail spicules and to allow for better penetration of the phenol into the matrix. 3 rounds of phenol were placed on the nail root and bed for 30 seconds each. Alcohol was then used after the phenol on the nail bed. Tourniquet was removed and prompt hyperemic response was noted to the distal digit. Dressing applied consisting of Silvadene cream, Adaptic, 4 x 4's, Angela, and Coban lightly without compression. Patient to keep this clean dry and intact for 48 hours, patient is to dress daily with silvadene cream and band-aid. Patient is to return to clinic in 2 weeks for follow-up care.
--- NOTE | 2022-05-26 13:49 | ANE.PACU2 ---
Inpatient post-anesthesia follow up: Airway intact: Yes Vital signs: Temperature 98.1 F Pulse Rate 78 Respiratory Rate 18 Blood Pressure 132/71 Pulse Oximetry 96 Oxygen Delivery Me thod Room Air Oxygen Flow Rate Fraction of Inspir ed Oxygen Hydration adequate: Yes Nausea and vomiting: No Pain level: 1 Mental status: Baseline
[2022-05-26 15:39] LABS: Glucose Point of Care 123 mg/dL (70-110)
[2022-05-26 15:39] LABS: Glucose Point of Care 142 mg/dL (70-110)
== END 2022-05-26 12:05 | disposition home or self-care (01) ==
PROVIDERS: PCP Nurse Practitioner Family; Visit Provider Podiatrist Foot & Ankle Surgery
PROC: (CPT 28296; principal; 2022-05-26 08:50)
PROC: (CPT 28285; 2022-05-26 08:50)
PROC: (CPT 11750; 2022-05-26 08:50)
PROC: 0HTRXZZ Resection of Toe Nail, External Approach (ICD-10-PCS; CPT 11750; 2022-05-26 08:50)
DX: M20.41 Other hammer toe(s) (acquired), right foot (principal); M21.611 Bunion of right foot; L60.3 Nail dystrophy; Z79.01 Long term (current) use of anticoagulants; Z86.718 Personal history of other venous thrombosis and embolism; F17.210 Nicotine dependence, cigarettes, uncomplicated; J45.909 Unspecified asthma, uncomplicated; J44.9 Chronic obstructive pulmonary disease, unspecified; G47.30 Sleep apnea, unspecified; I48.91 Unspecified atrial fibrillation; I10 Essential (primary) hypertension; E11.9 Type 2 diabetes mellitus without complications; E78.5 Hyperlipidemia, unspecified; E03.9 Hypothyroidism, unspecified; M19.90 Unspecified osteoarthritis, unspecified site; Z79.84 Long term (current) use of oral hypoglycemic drugs; Z79.4 Long term (current) use of insulin
CPT/HCPCS: 11750; 28285; 28296; 36416; 73620; 76000; 82962; C1713; C9290; J1100; J2370; J2405; J2704; J3010; J3490; J7030

== ENCOUNTER → 2022-05-29 09:44 | Outpatient (BNVA) | payer MEDICARE, MEDICAID, SELFPAY | PROVIDERS: PCP Nurse Practitioner Family; Visit Provider Podiatrist Foot & Ankle Surgery | DX: Z98.890 Other specified postprocedural states (principal) | CPT/HCPCS: 99024 ==

== ENCOUNTER 2022-06-01 20:28 | Emergency (ER) | payer MEDICARE, MEDICAID, SELFPAY ==
[2022-06-01 20:34] VITALS: BP 145/77; PULSE 85; RESP 16; TEMP 36.6; O2SAT 94
--- NOTE | 2022-06-01 21:33 | ED_ITS ---
HPI - Skin/Abscess/Foreign Bdy General: Chief complaint: Skin/Abscess/Foreign Body Stated complaint: Right foot wound issue post surgery Time Seen by Provider: 06/01/22 20:42 History of Present Illness: Patient is in for itching. She states that she had surgery of her right foot recently and thinks she may be allergic to the stuff they used to clean the foot and prep it for surgery. She reports that the top of her foot is red and itching. She did follow-up with her orthopedic surgeon on Sunday and they started her on an antibiotic just to prevent her from getting infection and they also started her on Benadryl to help with the itching. She reports that Benadryl is minimally effective and the itching is driving her crazy. He denies any other issues. Associated symptoms: Deny chills, fever(s), nausea or vomiting Review of Systems Const: Denies: fever(s), chills or body aches Card: Denies: chest pain, palpitations or irregular heart rhythm Resp: Denies: dyspnea, productive cough or non-productive cough GI: Denies: abdominal pain, nausea or vomiting Musc: Reports: other (Recent postop right foot for bunion and hammertoe) Skin/Breast: Reports: pruritus and erythema [facility] ED PFSH: Medical History DVT (deep venous thrombosis) Family History Other Cancer Diabetes Hypertension Stroke Social History Smoking and tobacco status: current some day smoker cigarettes Years cigarettes smoked: 20 Quit status (tobacco): considering quitting Second hand smoke exposure: Yes Smoking risk assessment/counseling performed?: Yes Alcohol intake: never Substance/Drug Use: never Lives independently: Yes Household members: none Housing: House Marital status: Life Partner Current occupational status: disabled Pets and animals: Yes Current gender identity: Female Physical Exam Const: COMMON NORMALS: no acute distress, patient oriented x3 and alert Resp: COMMON NORMALS: normal respiratory effort and No use of accessory muscles Neuro: COMMON NORMALS: patient oriented x3 SENSORIUM/ORIENTATION: Yes alert Skin: NARRATIVE SKIN EXAM: Right foot dorsal aspect with slight redness and raised fine rash. Sutures are noted with dressing mostly intact. Pin is noted to the distal middle toe. No oozing or drainage from the incision site. Course Vital Signs: Vital signs: Vital Signs Temperature 97.8 F 06/01/22 20:34 Pulse Rate 85 06/01/22 20:34 Respiratory Rate 16 06/01/22 20:34 Blood Pressure 145/77 06/01/22 20:34 Pulse Oximetry 94 06/01/22 20:34 Oxygen Delivery Me thod Room Air 06/01/22 20:34 MDM - Skin/Abscess/Foreign Bdy Medicial Decision Making Contact dermatitis. Switch patient from Benadryl to hydroxyzine to see if that will alleviate her itching. Encourage patient to call surgeon tomorrow and set up follow-up. Patient is already on antibiotics denies any systemic symptoms and there is no oozing or drainage noted from the site itself. Low suspicion for postsurgical infection at this time. Discharge Plan Discharge Patient Disposition: Home Clinical Impression: Contact dermatitis Condition: Stable Prescriptions: New hydroxyzine HCl 25 mg tablet 25 mg PO Q6H PRN (Reason: itching) Qty: 12 0RF No Action diltiazem HCl [Cartia XT] 120 mg capsule,extended release 24hr 240 mg PO DAILY Januvia 50 mg tablet 50 mg PO DAILY Eliquis 5 mg tablet 5 mg PO BID lisinopril 20 mg tablet 20 mg PO BID diphenhydramine HCl [Allergy Relief(diphenhydramin)] 25 mg tablet 25 mg PO BID PRN (Reason: ALLERGIES) levothyroxine 100 mcg tablet 100 mcg PO DAILY vitamin B complex [B Complex-Vitamin B12] Tablet 1 tab PO DAILY cholecalciferol (vitamin D3) 2,000 unit tablet,chewable 2,000 unit PO BID multivitamin [Multiple Vitamins] Tablet 1 tab PO DAILY pravastatin 10 mg tablet 40 mg PO BEDTIME Rx Instructions: one tab at bedtime montelukast [Singulair] 10 mg tablet 10 mg PO DAILY Qty: 30 3RF diphenhydramine HCl [Benadryl] 25 mg capsule 25 mg PO TID PRN (Reason: allergy symptoms) Qty: 21 0RF doxycycline hyclate 100 mg capsule 100 mg PO BID 10 Days Qty: 20 0RF (DME) raised toilet seat See Rx Instructions .Route .MEDSUPPLY Qty: 1 0RF Rx Instructions: As directed Spiriva Respimat 1.25 mcg/actuation mist 2 puff inhalation DAILY Qty: 4 0RF Rx Instructions: NEEDS APPT PRIOR TO FURTHER REFILLS gabapentin 300 mg capsule 300 mg PO DAILY buspirone 5 mg tablet 5 mg PO BID glipizide 10 mg tablet extended release 24hr 10 mg PO DAILY ropinirole 0.5 mg tablet 0.5 mg PO BID escitalopram oxalate 10 mg tablet 10 mg PO DAILY insulin glargine [Lantus Solostar U-100 Insulin] 100 unit/mL (3 mL) insulin pen 8 unit SUBCUT BEDTIME Discharge Orders: Discharge ED (Routine); Ordered 06/01/22 Ordered By: Aisha King Referrals: Merline Vaca FNP [Primary Care Provider] - Discharge Diet: Usual diet Discharge Activity: Limit activity as instructed Patient Instructions: Itchy Skin (ED) Activity Restrictions/Additional Instructions: Try hydroxyzine to see if that will help with itching instead of Benadryl. Follow-up with your surgeon tomorrow for any further direction. Return to the ER as needed Coding Level of Care Code ED [employer] for Patti Vernon
[2022-06-01] MEDS: hyDROXYzine 25 mg Capsule 50 MG PO (21:44)
== END 2022-06-01 21:47 | disposition home or self-care (01) ==
PROVIDERS: Emergency Provider Nurse Practitioner Family; PCP Nurse Practitioner Family
DX: L25.9 Unspecified contact dermatitis, unspecified cause (principal); Z79.01 Long term (current) use of anticoagulants; Z79.4 Long term (current) use of insulin; Z79.84 Long term (current) use of oral hypoglycemic drugs; F17.210 Nicotine dependence, cigarettes, uncomplicated
CPT/HCPCS: 99283

== ENCOUNTER → 2022-06-08 14:55 | Outpatient (BNVA) | payer MEDICARE, MEDICAID, SELFPAY | PROVIDERS: PCP Nurse Practitioner Family; Visit Provider Podiatrist Foot & Ankle Surgery | DX: Z98.890 Other specified postprocedural states (principal); Z48.89 Encounter for other specified surgical aftercare | CPT/HCPCS: 73630; 99024 ==

== ENCOUNTER → 2022-06-22 14:00 | Outpatient (BNVA) | payer MEDICARE, MEDICAID, SELFPAY | PROVIDERS: PCP Nurse Practitioner Family; Visit Provider Podiatrist Foot & Ankle Surgery | DX: Z98.890 Other specified postprocedural states (principal); L60.3 Nail dystrophy | CPT/HCPCS: 73630; 99024 ==

== ENCOUNTER → 2022-07-04 07:27 | Outpatient (BNVA) | payer MEDICARE, MEDICAID, SELFPAY | PROVIDERS: PCP Nurse Practitioner Family; Visit Provider Podiatrist Foot & Ankle Surgery | DX: Z98.890 Other specified postprocedural states (principal); L60.3 Nail dystrophy | CPT/HCPCS: 73630; 87070; 87075; 87205; 99213 ==

== ENCOUNTER → 2022-07-13 13:46 | Outpatient (BNVA) | payer MEDICARE, MEDICAID, SELFPAY | PROVIDERS: PCP Nurse Practitioner Family; Visit Provider Podiatrist Foot & Ankle Surgery | DX: Z98.890 Other specified postprocedural states (principal); L60.0 Ingrowing nail | CPT/HCPCS: 11750; 73630; 99024; A6219 ==

== ENCOUNTER → 2022-08-01 08:52 | Outpatient (BNVA) | payer MEDICARE, MEDICAID, SELFPAY | PROVIDERS: PCP Nurse Practitioner Family; Visit Provider Podiatrist Foot & Ankle Surgery | DX: L60.0 Ingrowing nail (principal) | CPT/HCPCS: 99213 ==

== ENCOUNTER → 2022-09-14 14:02 | Outpatient (BNVA) | payer MEDICARE, MEDICAID, SELFPAY | PROVIDERS: PCP Nurse Practitioner Family; Visit Provider Podiatrist Foot & Ankle Surgery | DX: Z98.890 Other specified postprocedural states (principal); T84.84XA Pain due to internal orthopedic prosthetic devices, implants and grafts, initial encounter; Y79.2 Prosthetic and other implants, materials and accessory orthopedic devices associated with adverse incidents; M96.89 Other intraoperative and postprocedural complications and disorders of the musculoskeletal system | CPT/HCPCS: 73630; 99214 ==

== ENCOUNTER 2022-09-22 05:45 | Day surgery (SDC) | payer MEDICARE, MEDICAID, SELFPAY ==
[2022-09-21 11:46] VITALS: BMI 36.6
--- NOTE | 2022-09-22 | XR_ITS ---
WS: [id number] XR foot RT 2V [id number] REASON FOR EXAM: Right 1st metatarsal phalangeal fusion FINDINGS: Plate and screw arthrodesis of the first metatarsophalangeal joint. Arthrodesis appears in proper position and alignment. Surgical appliances are intact and in proper position and alignment. IMPRESSION: Arthrodesis as above.
[2022-09-22 06:19] VITALS: BP 158/74; PULSE 76; RESP 16; TEMP 36.9; O2SAT 95
--- NOTE | 2022-09-22 06:24 | W.PM.OPSUD ---
Surgery/Procedure H&P Update DATE OF PROCEDURE: September 22, 2022 DATE H&P PERFORMED: 09/14/22 CHANGES TO PREVIOUS DOCUMENTATION: none PREOP DIAGNOSIS: Painful hardware and bunion right foot. PLANNED PROCEDURE: Operation Date: 09/22/22 07:00 Proposed Procedures p : Right first metatarsal phalangeal joint fusion, hardware removal right second toe 41160, 28159,M20.11,T84.84 XA(Right) - Franck Knox DPM s Hardware Removal(Right) - Franck Knox DPM
--- NOTE | 2022-09-22 06:24 | PM.OP ---
Operative Report Date of procedure: September 22, 2022 Pre-op diagnosis: Preop Diagnosis Painful hardware and bunion right foot. Post-op diagnosis: Painful hardware right foot. Bunion right foot Procedure done: Deep hardware removal right foot. CPT code 46007 Right first metatarsophalangeal joint arthrodesis. CPT code 13926 Implants: 3-0 Vicryl, 4-0 Vicryl, 4-0 nylon, [place] first MTP plate, [place] 2.7 millimeter screws distal cluster, [place] 3.5 millimeter screws proximal cluster, 2.5 cc of beast demineralized bone matrix Specimens removed/disposition: none Pathology: none Surgeon: Franck Knox D.P.[employer] Supervisor: Roby Estimated blood loss: 5 54 minutes left calf IV fluids: 0 Urine output: 0 Complications: none Brief History: Ms. Carlos is a pleasant 67-year-old female presents to clinic for repeat evaluation of right foot pain.? She has had increased pain since she has increased her activities at her right foot.? Has had a progression of malunion at her right first metatarsal postoperatively and failure of hardware at the right second toe.? States that her right great toe is stiff and painful with motion and weightbearing.? She is wishing to discuss surgical revision due to the level of pain that she experiences.? She has tried supportive shoes, anti-inflammatories, splinting, spacing and padding without relief. X-rays right foot 3 views shows malunion of the first metatarsal osteotomy site for distal bunionectomy, the screw fixation has toggled, the capital fragment is dorsiflexed in the sagittal plane, failed hardware at the right second toe.? Discussed options at length with patient.? Discussed revision of a distal metatarsal osteotomy versus first metatarsophalangeal joint arthrodesis.? She is leaning towards an arthrodesis as her best option.? Also recommended hardware removal right second toe.? I reviewed at length with the patient, the risks, potential complications, benefits, alternatives, expectations, and typical outcomes associated with the surgery. The risks and potential complications were explained in detail, including but not limited to infection, wound dehiscence or soft tissue complications, bleeding and hematoma, chronic edema, neuritis or nerve damage producing numbness or chronic pain, CRPS, failure to relieve pain or worsening pain, thick / painful / unsightly scar, limited motion / stiffness, malposition, delayed union, malunion, or nonunion, fracture, reaction to implants, anesthetic complications, venous thromboembolism, and deformity recurrence.? I discussed the notion of no regrets with the patient as it pertains to complications and outcomes. The patient seemed to understand the nature of the proposed care and required convalescence. They asked appropriate questions, answered to their satisfaction. They are aware no guarantees can be made as to a satisfactory outcome and they understand there may be other possible unforeseen complications or outcomes not listed here that will be treated accordingly if they arise. There were no written or implied guarantees given to the patient. They gave informed consent to proceed. Procedure: Under mild sedation patient was brought to the operating room and remained on the gurney in supine position. A timeout was performed. Anesthesia was then administered by the anesthesia service. Local anesthesia injected by myself consisting of 30 cc of 0.5% Marcaine plain in a right Phelps block fashion. Additional 10 cc of Exparel was infiltrated subcutaneously in a grid like fashion to the proximal medial forefoot. While the pneumatic tourniquet was applied to the right high calf. The right lower extremity was scrubbed, prepped and draped utilizing normal aseptic technique. The right lower extremity was exanguinated with an Esmarch bandage and the tourniquet inflated to 250 mmHg. Attention was directed to the dorsal medial aspect of the right first metatarsal phalangeal joint where a linear longitudinal incision was made medial and parallel to the extensor hallucis longus tendon. Dissection was carried down through skin and subcutaneous tissue utilizing sharp and blunt technique. Care was taken to retract and preserve neurovascular and tendinous structures. All bleeders were ligated and cauterized as necessary. A periosteal and capsular incision was made at the dorsal medial aspect of the right first metatarsophalangeal joint the head of the first metatarsal was freed from its soft tissue and capsular attachments. There is a malunion of the first metatarsal with a dorsiflexed capital fragment in the sagittal plane, there is binding of the first metatarsal head joint with decreased range of motion appreciated intraoperatively. The head of the first metatarsal was contoured with a rongeur back to normal anatomy as well as the base of the proximal phalanx followed by preparation for arthrodesis utilizing cone and cup reamers at the head of the first metatarsal and base of the proximal phalanx on hand power. The articular surface of the denuded of cartilage and the incision was irrigated with saline solution followed by subchondral drilling with fenestrating drill bit within the base of the proximal phalanx and head of the first metatarsal, additional demineralized bone matrix provided by [place] 28 total of 2.5 cc was utilized to pack bony voids. The right first metatarsophalangeal joint was held in slight dorsiflexion, slight valgus in neutral and the frontal plane followed by fixation utilizing a anatomic [place] locking plate with 2.7 millimeter screws locking distally and 3.5 mm proximally. Excellent bony apposition and compression noted at the arthrodesis site and excellent contour of the anatomic plate at the arthrodesis site dorsally without step-off. AP, oblique and lateral views confirmed excellent placement of orthopedic hardware in excellent alignment of the arthrodesis site. The incision site was irrigated with copious amounts of Staticin solution and the capsular and periosteal structures were reapproximated utilizing 3-0 Vicryl. Subcutaneous tissue was reapproximated utilizing 4-0 Vicryl and skin with 4-0 nylon. Attention was then directed to the dorsal and plantar aspect of the right second toe where incisions were performed percutaneous down directly to hardware, the dorsal implant and plantar titanium implants were removed from in total and passed from operative field, no fragmentation of the hardware was appreciated. The incisions were irrigated with saline solution and closed with 4-0 nylon. All incisions were then dressed with nonadherent Adaptic, sterile 4 x 4's, Kerlix and Po wrap followed by application of a cam boot to the right lower extremity. Tourniquet was deflated and a prompt hyperemic response was noted to the distal digits of the right foot. Patient tolerated the procedure and anesthesia well and was transferred to the PACU with vital signs stable and vascular status intact. Following a period of postoperative monitoring she will be discharged home. She is to be nonweightbearing to the right foot. May heel touch with a cam boot to the right lower extremity for transfers. She is to elevate her right foot while resting. Was given at home care instructions, scheduled follow-up and my cell phone number to contact with any postoperative questions or concerns.
[2022-09-22 06:29] LABS: Glucose Point of Care 166 mg/dL (70-110)
[2022-09-22] MEDS: sodium chloride 0.9% 1,000 ML 30 ML IV (06:34)
--- NOTE | 2022-09-22 07:00 | ANES.PREANE2 ---
Pre-Anesthetic Assessment Height/Weight: Height 1.65 m Weight 99.79 kg Temp Pulse Resp BP Pulse Ox O2 Del Method 98.4 F 76 16 158/74 95 Room Air 09/22/22 06:19 09/22/22 06:19 09/22/22 06:19 09/22/22 06:19 09/22/22 06:19 09/22/22 06:19 Preop Diagnosis: Painful hardware and bunion right foot. Operation Date: 09/22/22 07:00 Proposed Procedures p : Right first metatarsal phalangeal joint fusion, hardware removal right second toe 85456, 96809,M20.11,T84.84 XA(Right) - Franck Knox DPM s Hardware Removal(Right) - Franck Knox DPM Familial anesthetic complications: none Was Beta Rocael taken within 24 hours: N/A Was Clonidine taken within 24 hours: N/A Last intake: Intake Last Liquid Date 09/21/22 Last Liquid Time 23:00 Last Solid Date 09/21/22 Last Solid Time 20:00 Social Tobacco and No alcohol Exam alert, oriented x 3, clear to auscultation bilaterally and regular rate & rhythm Airway Mallampati: Class II Dentition: chipped Pulmonary Asthma, Chronic Obstructive Pulmonary Disease and Sleep Apnea CV/HEM Atrial Fibrillation and Hypertension Metabolic Diabetes Mellitus, Hyperlipidemia, Morbid Obesity and Thyroid Disease Musc/skel Lower Back Pain and Osteoarthritis/DJD Anesthetic Plan ASA status: 3 Anesthesia: General Risk of > 500 ml blood loss (7ml/kg in children): No Medications/Allergies Home Medications Medication Instructions Recorded Confirmed Last Taken Type apixaban 5 mg tablet (Eliquis) 5 mg PO BID 04/17/19 09/21/22 09/21/22 History cholecalciferol (vitamin D3) 50 2,000 unit PO BID 04/17/19 09/21/22 09/21/22 History mcg (2,000 unit) chewable tablet diltiazem HCl 120 mg 240 mg PO DAILY 04/17/19 09/21/22 09/21/22 History capsule,extended release 24 hr (Cartia XT) levothyroxine 100 mcg tablet 100 mcg PO DAILY 04/17/19 09/21/22 09/21/22 History lisinopril 20 mg tablet 20 mg PO BID 04/17/19 09/21/22 09/21/22 History multivitamin (Multiple Vitamins 1 tab PO DAILY 04/17/19 09/21/22 09/21/22 History tablet) sitagliptin phosphate 50 mg tablet 50 mg PO DAILY 04/17/19 09/21/22 09/21/22 History (Januvia) vitamin B complex (B 1 tab PO DAILY 04/17/19 09/21/22 09/21/22 History Complex-Vitamin B12 tablet) gabapentin 300 mg capsule 300 mg PO DAILY 06/22/19 09/21/22 09/21/22 History pravastatin 10 mg tablet 40 mg PO BEDTIME 02/04/20 09/21/22 09/21/22 History montelukast 10 mg tablet 10 mg PO DAILY #30 tabs 03/18/20 09/21/22 09/21/22 Rx (Singulair) raised toilet seat #1 ea 12/14/20 09/14/22 Unknown Rx tiotropium bromide 1.25 2 puff inhalation DAILY #4 grams 08/11/21 09/21/22 09/21/22 Rx mcg/actuation mist for inhalation (Spiriva Respimat) buspirone 5 mg tablet 5 mg PO BID 05/25/22 09/21/22 09/21/22 History escitalopram oxalate 10 mg tablet 10 mg PO DAILY 05/25/22 09/21/22 09/21/22 History glipizide 10 mg tablet, extended 10 mg PO DAILY 05/25/22 09/21/22 09/21/22 History release 24 hr insulin glargine 100 unit/mL (3 8 unit SUBCUT BEDTIME 05/25/22 09/21/22 09/20/22 History mL) subcutaneous pen (Lantus Solostar U-100 Insulin) ropinirole 0.5 mg tablet 0.5 mg PO BID 05/25/22 09/21/22 09/21/22 History hydroxyzine HCl 25 mg tablet 25 mg PO QID PRN itching 7 days 06/02/22 09/21/22 Unknown Rx #28 tabs diphenhydramine HCl 25 mg capsule 25 mg PO TID PRN allergy symptoms 07/13/22 09/21/22 Unknown Rx (Benadryl) #21 caps hydrocodone 10 mg-acetaminophen 1 tab PO Q6H PRN pain 7 days #28 09/22/22 Unknown Rx 325 mg tablet tabs Allergies Allergy/AdvReac Type Severity Reaction Status Date / Time ampicillin Allergy ALGY-Hives Verified 09/21/22 11:28 erythromycin base Allergy ALGY-Hives Verified 09/21/22 11:28 Penicillins Allergy ALGY-Hives Verified 09/21/22 11:28 Current Medications Generic Name Dose Route Start Last Admin Trade Name Freq PRN Reason Stop Dose Admin Sodium Chloride 1,000 mls @ 30 mls/hr 09/22/22 06:00 09/22/22 06:34 Sodium Chloride 0.9% IV 09/23/22 05:59 30 mls/hr .Q24H RON Administration PFSH Anesthesia Medical History DVT (deep venous thrombosis) Family History Other Cancer Diabetes Hypertension Stroke Social History Smoking and tobacco status: current some day smoker cigarettes Years cigarettes smoked: 20 Quit status (tobacco): considering quitting Second hand smoke exposure: Yes Smoking risk assessment/counseling performed?: Yes Alcohol intake: never Substance/Drug Use: never Lives independently: Yes Household members: none Housing: House Marital status: Life Partner Current occupational status: disabled Pets and animals: Yes Do you think of yourself as: Straight/Heterosexual Current gender identity: Female Data Anesthesia Cardiac Studies: No Data to Display
[2022-09-22] MEDS: vancomycin 1,000 MG in sodium chloride 0.9% 250 ML 250 MG IV (07:03)
[2022-09-22] MEDS: BUPivacaine liposome 13.3 mg/mL SDV 10 mL 133 MG XX (07:15)
[2022-09-22] MEDS: BUPivacaine 0.5% INJ 30 mL INJECTION (07:15)
[2022-09-22 08:21] VITALS: BP 131/69; PULSE 81; RESP 16; TEMP 36.2; O2SAT 94
[2022-09-22 08:26] VITALS: BP 113/78; PULSE 76; RESP 16; O2SAT 95
[2022-09-22 08:31] VITALS: BP 128/57; PULSE 66; RESP 16; O2SAT 96
--- NOTE | 2022-09-22 08:35 | ANE.PACU2 ---
Inpatient post-anesthesia follow up: Airway intact: Yes Vital signs: Temperature 97.1 F Pulse Rate 57 Respiratory Rate 16 Blood Pressure 141/65 Pulse Oximetry 97 Oxygen Delivery Me thod Room Air Oxygen Flow Rate Fraction of Inspir ed Oxygen Hydration adequate: Yes Nausea and vomiting: No Pain level: 1
[2022-09-22 08:45] VITALS: BP 121/63; PULSE 62; RESP 16; O2SAT 95
[2022-09-22 08:59] VITALS: BP 141/65; PULSE 57; RESP 16; O2SAT 97
== END 2022-09-22 09:20 | disposition home or self-care (01) ==
PROVIDERS: PCP Nurse Practitioner Family; Visit Provider Podiatrist Foot & Ankle Surgery
PROC: (CPT 28740; principal; 2022-09-22 07:00)
PROC: (CPT 20680; 2022-09-22 07:00)
DX: T84.84XA Pain due to internal orthopedic prosthetic devices, implants and grafts, initial encounter (principal); S92.311A Displaced fracture of first metatarsal bone, right foot, initial encounter for closed fracture; M21.611 Bunion of right foot; M25.571 Pain in right ankle and joints of right foot; E11.9 Type 2 diabetes mellitus without complications; J44.9 Chronic obstructive pulmonary disease, unspecified; G47.33 Obstructive sleep apnea (adult) (pediatric); I48.91 Unspecified atrial fibrillation; I10 Essential (primary) hypertension; E78.5 Hyperlipidemia, unspecified; E66.01 Morbid (severe) obesity due to excess calories; F17.210 Nicotine dependence, cigarettes, uncomplicated; Z79.899 Other long term (current) drug therapy; Z79.01 Long term (current) use of anticoagulants; Z79.84 Long term (current) use of oral hypoglycemic drugs; Y83.8 Other surgical procedures as the cause of abnormal reaction of the patient, or of later complication, without mention of misadventure at the time of the procedure; Z88.0 Allergy status to penicillin
CPT/HCPCS: 20680; 28750; 36416; 73620; 76000; 82962; C1713; C1762; C9290; J2704; J3010; J3370; J3490; J7030; J7050

== ENCOUNTER → 2022-10-04 09:12 | Outpatient (BNVA) | payer MEDICARE, MEDICAID, SELFPAY | PROVIDERS: PCP Nurse Practitioner Family; Visit Provider Podiatrist Foot & Ankle Surgery | DX: Z98.890 Other specified postprocedural states (principal); T84.84XA Pain due to internal orthopedic prosthetic devices, implants and grafts, initial encounter; Y79.2 Prosthetic and other implants, materials and accessory orthopedic devices associated with adverse incidents; M96.89 Other intraoperative and postprocedural complications and disorders of the musculoskeletal system | CPT/HCPCS: 73630; 99024 ==

== ENCOUNTER → 2022-10-19 13:30 | Outpatient (BNVA) | payer MEDICARE, MEDICAID, SELFPAY | PROVIDERS: PCP Nurse Practitioner Family; Visit Provider Podiatrist Foot & Ankle Surgery | DX: Z98.890 Other specified postprocedural states (principal); T84.84XA Pain due to internal orthopedic prosthetic devices, implants and grafts, initial encounter; M96.89 Other intraoperative and postprocedural complications and disorders of the musculoskeletal system; Y79.2 Prosthetic and other implants, materials and accessory orthopedic devices associated with adverse incidents | CPT/HCPCS: 73630; 99024 ==

== ENCOUNTER → 2022-11-09 10:14 | Outpatient (BNVA) | payer MEDICARE, MEDICAID, SELFPAY | PROVIDERS: PCP Nurse Practitioner Family; Visit Provider Podiatrist Foot & Ankle Surgery | DX: Z98.890 Other specified postprocedural states (principal); E11.42 Type 2 diabetes mellitus with diabetic polyneuropathy; M21.611 Bunion of right foot; M21.612 Bunion of left foot; Z79.4 Long term (current) use of insulin | CPT/HCPCS: 73630; 99024 ==

== ENCOUNTER 2022-12-07 07:58 | Outpatient (CLI) | payer MEDICARE, MEDICAID, SELFPAY ==
--- NOTE | 2022-12-07 08:13 | MM_ITS ---
WS: [id number] VIEWS: MLO and CC views both breasts. 3D digital tomosynthesis is also included in this exam. Comparison made with prior exam of 03/11/2012, 04/07/2014, 12/31/2015, 01/18/2017, 04/25/2018, 09/16/2019, 10/07/2020,. Findings: There was no sign of mass, architectural distortion or suspicious calcification in either breast. The breasts are almost entirely fatty Impression: MM/[place] [id number] BI-RADS: 1-Negative FOLLOW-UP: 1 Year Follow-up This mammogram was also analyzed by the Computer Aided Detection System R2 Imag e Copy Chief.
== END 2022-12-07 07:59 | disposition home or self-care (01) ==
LOC: RAD 07:58
PROVIDERS: PCP Nurse Practitioner Family; Visit Provider Nurse Practitioner Family
DX: Z12.31 Encounter for screening mammogram for malignant neoplasm of breast (principal); Z98.890 Other specified postprocedural states; E11.42 Type 2 diabetes mellitus with diabetic polyneuropathy; M21.41 Flat foot [pes planus] (acquired), right foot; M21.42 Flat foot [pes planus] (acquired), left foot; Z79.4 Long term (current) use of insulin
CPT/HCPCS: 73630; 77063; 77067; 99213

== ENCOUNTER → 2023-01-01 10:37 | Outpatient (BNVA) | payer MEDICARE, MEDICAID, SELFPAY | PROVIDERS: PCP Nurse Practitioner Family; Visit Provider Podiatrist Foot & Ankle Surgery | DX: E11.42 Type 2 diabetes mellitus with diabetic polyneuropathy; M21.41 Flat foot [pes planus] (acquired), right foot; M21.42 Flat foot [pes planus] (acquired), left foot; S90.31XA Contusion of right foot, initial encounter; W22.8XXA Striking against or struck by other objects, initial encounter; Z79.4 Long term (current) use of insulin | CPT/HCPCS: 73630; 99213 ==

== ENCOUNTER → 2023-03-21 10:20 | Outpatient (BNVA) | payer MEDICARE, MEDICAID, SELFPAY | PROVIDERS: PCP Nurse Practitioner Family; Visit Provider Podiatrist Foot & Ankle Surgery | DX: M20.22 Hallux rigidus, left foot (principal); M20.42 Other hammer toe(s) (acquired), left foot; E11.42 Type 2 diabetes mellitus with diabetic polyneuropathy; M21.41 Flat foot [pes planus] (acquired), right foot; M21.42 Flat foot [pes planus] (acquired), left foot; Z79.4 Long term (current) use of insulin | CPT/HCPCS: 99214 ==

== ENCOUNTER 2023-04-27 06:38 | Day surgery (SDC) | payer MEDICARE, MEDICAID, SELFPAY ==
[2023-04-27] VITALS (7 sets, daily range): BP systolic 96–169; BP diastolic 58–80; PULSE 63–77; RESP 14–18; TEMP 36.2–36.3; O2SAT 93–95; BMI 32.9
--- NOTE | 2023-04-27 | XR_ITS ---
WS: [id number] C-ARM RADIOGRAPHS LEFT FOOT; 2 IMAGES HISTORY: KEKE PICS COMPARISON: No recent exams. Plate and screw fixation across the first metatarsophalangeal joint. The second image submitted revea ls a screw through the second proximal and distal IP joints. IMPRESSION: Screw fixation second toe extending through the proximal and distal interphalangeal joints.
--- NOTE | 2023-04-27 06:43 | P.HPUD_ITS ---
Surgery/Procedure H&P Update DATE OF PROCEDURE: April 27, 2023 DATE H&P PERFORMED: 04/27/23 H&P UPDATE INFORMATION: I have reviewed H&P completed within last 30 days, I have examined patient prior to procedure, No changes to prior documentation and H[place] is in [facility] on date indicated CHANGES TO PREVIOUS DOCUMENTATION: None PLANNED PROCEDURE: Operation Date: 04/27/23 08:20 Proposed Procedures p Arthrodesis Foot Foot Fusion/ Left first metatarsal phalangeal joint fusion(Left) - Franck Knox DPM s Tendon Transfer Foot/ Left Foot(Left) - Franck Knox DPM s Hammertoe Correction/Left second hammertoe correction(Left) - rFanck Knox DPM
--- NOTE | 2023-04-27 06:43 | P.HP_ITS ---
Providers/Chief Complaint Primary Care Provider: RACHEL Voss Chief Complaint: M20.22 History of Present Illness Roxy Carlos is a 68 year old female presents with complaints of her left foot pain. She states that her pain is in the left great toe and left 2nd toe. She has pain with weight bearing. Patient has a HX of a Right first metatarsophalangeal joint arthrodesis. DOS 09/22/22 which she recovered well from. She is requesting a left great toe joint fusion to match her right foot. States that she already had a bunionectomy on the left foot years ago by another doctor and there has been recurrence, the deformity is now painful to the point where it affects her overall quality of life. Just complains of a hammertoe contracture of the left second toe that she is wishing to have fixed concomitantly. She has failed accommodative shoes with extra-depth, has lowered her A1c significantly in preparation for surgery Review of Systems General: Reports: 10 or more systems reviewed and unremarkable except in HPI and below Const: Denies: fever(s) or chills Eyes: Denies: change in vision Card: Denies: chest pain or palpitations Resp: Denies: dyspnea or productive cough GI: Denies: abdominal pain, nausea or vomiting : Denies: flank pain Musc: Reports: extremity pain, joint pain, joint stiffness, limited range of motion and deformity Skin/Breast: Reports: skin tenderness; Denies: rash Neuro: Reports: difficulty walking; Denies: numbness in extremities, sensory changes or frequent falls Psych: Denies: suicidal ideation Danny/Lymph: Denies: easy bruising Medications/Allergies Home Medications Medication Instructions Recorded Confirmed Last Taken Type apixaban 5 mg tablet (Eliquis) 5 mg PO BID 04/17/19 04/26/23 04/22/23 History cholecalciferol (vitamin D3) 50 2,000 unit PO BID 04/17/19 04/26/23 04/26/23 History mcg (2,000 unit) chewable tablet diltiazem HCl 120 mg 240 mg PO DAILY 04/17/19 04/26/23 04/26/23 History capsule,extended release 24 hr (Cartia XT) levothyroxine 100 mcg tablet 100 mcg PO DAILY 04/17/19 04/26/23 04/26/23 History lisinopril 20 mg tablet 20 mg PO BID 04/17/19 04/26/23 04/26/23 History multivitamin (Multiple Vitamins 1 tab PO DAILY 04/17/19 04/26/23 04/26/23 History tablet) vitamin B complex (B 1 tab PO DAILY 04/17/19 04/26/23 09/21/22 History Complex-Vitamin B12 tablet) gabapentin 300 mg capsule 300 mg PO DAILY 06/22/19 04/26/23 04/26/23 History pravastatin 10 mg tablet 40 mg PO BEDTIME 02/04/20 04/26/23 04/26/23 History montelukast 10 mg tablet 10 mg PO DAILY #30 tabs 03/18/20 04/26/23 04/26/23 Rx (Singulair) raised toilet seat #1 ea 12/14/20 03/21/23 Unknown Rx tiotropium bromide 1.25 2 puff inhalation DAILY #4 grams 08/11/21 04/26/23 09/21/22 Rx mcg/actuation mist for inhalation (Spiriva Respimat) buspirone 5 mg tablet 5 mg PO BID 05/25/22 04/26/23 04/26/23 History escitalopram oxalate 10 mg tablet 10 mg PO DAILY 05/25/22 04/26/23 04/26/23 History glipizide 10 mg tablet, extended 10 mg PO DAILY 05/25/22 04/26/23 04/26/23 History release 24 hr insulin glargine 100 unit/mL (3 8 unit SUBCUT BEDTIME 05/25/22 04/26/23 04/26/23 History mL) subcutaneous pen (Lantus Solostar U-100 Insulin) ropinirole 0.5 mg tablet 0.5 mg PO BID 05/25/22 04/26/23 04/26/23 History hydroxyzine HCl 25 mg tablet 25 mg PO QID PRN itching 7 days 06/02/22 04/26/23 Unknown Rx #28 tabs diphenhydramine HCl 25 mg capsule 25 mg PO TID PRN allergy symptoms 07/13/22 04/26/23 Unknown Rx (Benadryl) #21 caps Diabetic shoes with 3 sets of #1 ea 12/07/22 03/21/23 Unknown Rx insoles sitagliptin phosphate 100 mg 100 mg PO DAILY 04/26/23 04/26/23 04/26/23 History tablet (Januvia) Allergies Allergy/AdvReac Type Severity Reaction Status Date / Time ampicillin Allergy ALGY-Hives Verified 04/26/23 15:26 erythromycin base Allergy ALGY-Hives Verified 04/26/23 15:26 Penicillins Allergy ALGY-Hives Verified 04/26/23 15:26 PFSH PFSH: Medical History DVT (deep venous thrombosis) Family History Other Cancer Diabetes Hypertension Stroke Social History Smoking and tobacco/nicotine status: current some day tobacco/nicotine user cigarettes Years cigarettes smoked: 20 Quit status (tobacco/nicotine): considering quitting Second hand smoke exposure: Yes Alcohol intake: never Substance/Drug Use: never Lives independently: Yes Household members: none Housing: House Marital status: Life Partner Current occupational status: disabled Pets and animals: Yes Do you think of yourself as: Straight/Heterosexual Current gender identity: Female Dietary Habits: Caffeine: Yes Physical Exam Narrative: EXAM NARRATIVE: Patient is alert and oriented ?3 and in no acute distress. The following is a focused right lower extremity exam. VASCULAR: Dorsalis pedis and posterior tibial arteries palpable +2. Capillary refill time less than 3 seconds to the distal hallux bilaterally. Calf is supple and nontender proximally and distally. No edema to the lower extremities. NEUROLOGICAL: Protective sensation intact to light touch. DERMATOLOGICAL: Well-healed cicatrix right foot x3. MUSCULOSKELETAL: Sagittal plane dominant hammertoe contracture at the left second toe, apex of the deformity is the distal interphalangeal joint with tenderness to palpation and tenderness with reduction of the deformity. She also has decreased first metatarsal phalangeal joint dorsiflexion at 25 degrees with osseous end range of motion. Pain and crepitus with range of motion of the left first metatarsal phalangeal joint. Hallux valgus and osseous prominence at the medial aspect of the first metatarsal phalangeal joint that is tender to palpation. CARDIOVASCULAR: S1, S2, normal rate, normal rhythm. Dorsalis pedis and posterior tibial arteries palpable. LUNGS: Clear to auscltation, no use of acessory muscles, no crackles or wheezes. A&P Assessment and plan (1) Bunion, left: (2) Hallux rigidus, left foot: (3) Hammertoe of second toe of left foot: (4) Contracture, left foot: Plan Patient requesting left first metatarsophalangeal arthrodesis and left second hammertoe correction, has failed conservative treatments as outlined in HPI. I reviewed at length with the patient, the risks, potential complications, benefits, alternatives, expectations, and typical outcomes associated with the surgery. The risks and potential complications were explained in detail, including but not limited to infection, wound dehiscence or soft tissue complications, bleeding and hematoma, chronic edema, neuritis or nerve damage producing numbness or chronic pain, CRPS, failure to relieve pain or worsening pain, thick / painful / unsightly scar, limited motion / stiffness, malposition, delayed union, malunion, or nonunion, fracture, reaction to implants, anesthetic complications, venous thromboembolism, and deformity recurrence. I discussed the notion of no regrets with the patient as it pertains to complications and outcomes. The patient seemed to understand the nature of the proposed care and required convalescence. They asked appropriate questions, answered to their satisfaction. They are aware no guarantees can be made as to a satisfactory outcome and they understand there may be other possible unforeseen complications or outcomes not listed here that will be treated accordingly if they arise. There were no written or implied guarantees given to the patient. They gave informed consent to proceed. Left first metatarsophalangeal joint fusion and left second hammertoe correction Local MAC, [place], supine Mini C arm, [place] 60 minutes Coding Level of Care Code Acute Code for Chg Fwd Diagnoses Bunion, left M21.612 Hallux rigidus, left foot M20.22 Hammertoe of second toe of left foot M20.42 Contracture, left foot M24.575
[2023-04-27] MEDS: sodium chloride 0.9% 1,000 ML 30 ML IV (08:22)
[2023-04-27 08:25] LABS: Glucose Point of Care 146 mg/dL (70-110)
--- NOTE | 2023-04-27 08:30 | ANES.PREANE2 ---
Pre-Anesthetic Assessment Height/Weight: Height 1.68 m Weight 92.533 kg Temp Pulse Resp BP Pulse Ox O2 Del Method 97.2 F L 69 18 169/80 93 Room Air 04/27/23 08:17 04/27/23 08:17 04/27/23 08:17 04/27/23 08:17 04/27/23 08:17 04/27/23 08:17 Preop Diagnosis: Left bunion and second hammertoe. Operation Date: 04/27/23 08:20 Proposed Procedures p Arthrodesis Foot Foot Fusion/ Left first metatarsal phalangeal joint fusion(Left) - Franck Knox DPM s Tendon Transfer Foot/ Left Foot(Left) - ELSA Perez Hammertoe Correction/Left second hammertoe correction(Left) - Franck Knox DPM Familial anesthetic complications: None Was Beta Rocael taken within 24 hours: N/A Was Clonidine taken within 24 hours: N/A Last intake: Intake Last Liquid Date 04/26/23 Last Liquid Time 23:45 Last Solid Date 04/26/23 Last Solid Time 20:00 Social Tobacco (encouraged smoking cessation) and No alcohol Exam alert, oriented x 3, clear to auscultation bilaterally and regular rate & rhythm Airway Mallampati: Class II Dentition: false Pulmonary Asthma and Chronic Obstructive Pulmonary Disease PE 10 years ago - [facility] CV/HEM Atrial Fibrillation and Hypertension Metabolic Diabetes Mellitus and Thyroid Disease Anesthetic Plan ASA status: 3 Anesthesia: MAC Risk of > 500 ml blood loss (7ml/kg in children): No Medications/Allergies Home Medications Medication Instructions Recorded Confirmed Last Taken Type apixaban 5 mg tablet (Eliquis) 5 mg PO BID 04/17/19 04/27/23 04/22/23 History cholecalciferol (vitamin D3) 50 2,000 unit PO BID 04/17/19 04/27/23 04/26/23 History mcg (2,000 unit) chewable tablet diltiazem HCl 120 mg 240 mg PO DAILY 04/17/19 04/27/23 04/26/23 History capsule,extended release 24 hr (Cartia XT) levothyroxine 100 mcg tablet 100 mcg PO DAILY 04/17/19 04/27/23 04/26/23 History lisinopril 20 mg tablet 20 mg PO BID 04/17/19 04/27/23 04/26/23 History multivitamin (Multiple Vitamins 1 tab PO DAILY 04/17/19 04/27/23 04/26/23 History tablet) vitamin B complex (B 1 tab PO DAILY 04/17/19 04/27/23 04/26/23 History Complex-Vitamin B12 tablet) gabapentin 300 mg capsule 300 mg PO DAILY 06/22/19 04/27/23 04/26/23 History pravastatin 10 mg tablet 40 mg PO BEDTIME 02/04/20 04/27/23 04/26/23 History montelukast 10 mg tablet 10 mg PO DAILY #30 tabs 03/18/20 04/27/23 04/26/23 Rx (Singulair) raised toilet seat #1 ea 12/14/20 03/21/23 Unknown Rx tiotropium bromide 1.25 2 puff inhalation DAILY #4 grams 08/11/21 04/27/23 04/26/23 Rx mcg/actuation mist for inhalation (Spiriva Respimat) buspirone 5 mg tablet 5 mg PO BID 05/25/22 04/27/23 04/26/23 History escitalopram oxalate 10 mg tablet 10 mg PO DAILY 05/25/22 04/27/23 04/26/23 History glipizide 10 mg tablet, extended 10 mg PO DAILY 05/25/22 04/27/23 04/26/23 History release 24 hr insulin glargine 100 unit/mL (3 8 unit SUBCUT BEDTIME 05/25/22 04/27/23 04/26/23 History mL) subcutaneous pen (Lantus 4 unit Solostar U-100 Insulin) ropinirole 0.5 mg tablet 0.5 mg PO BID 05/25/22 04/27/23 04/26/23 History hydroxyzine HCl 25 mg tablet 25 mg PO QID PRN itching 7 days 06/02/22 04/27/23 Unknown Rx #28 tabs diphenhydramine HCl 25 mg capsule 25 mg PO TID PRN allergy symptoms 07/13/22 04/27/23 04/26/23 Rx (Benadryl) #21 caps Diabetic shoes with 3 sets of #1 ea 12/07/22 03/21/23 Unknown Rx insoles sitagliptin phosphate 100 mg 100 mg PO DAILY 04/26/23 04/27/23 04/26/23 History tablet (Januvia) Allergies Allergy/AdvReac Type Severity Reaction Status Date / Time ampicillin Allergy ALGY-Hives Verified 04/27/23 08:10 erythromycin base Allergy ALGY-Hives Verified 04/27/23 08:10 Penicillins Allergy ALGY-Hives Verified 04/27/23 08:10 Current Medications Generic Name Dose Route Start Last Admin Trade Name Freq PRN Reason Stop Dose Admin Sodium Chloride 1,000 mls @ 30 mls/hr 04/27/23 07:00 04/27/23 08:22 Sodium Chloride 0.9% IV 04/28/23 06:59 30 mls/hr .Q24H RON Administration PFSH Anesthesia Medical History DVT (deep venous thrombosis) Family History Other Cancer Diabetes Hypertension Stroke Social History Smoking and tobacco/nicotine status: current some day tobacco/nicotine user cigarettes Years cigarettes smoked: 20 Quit status (tobacco/nicotine): considering quitting Second hand smoke exposure: Yes Alcohol intake: never Substance/Drug Use: never Lives independently: Yes Household members: none Housing: House Marital status: Life Partner Current occupational status: disabled Pets and animals: Yes Do you think of yourself as: Straight/Heterosexual Current gender identity: Female Data Anesthesia Cardiac Studies: No Data to Display
--- NOTE | 2023-04-27 08:32 | W.PM.OPSUD ---
Surgery/Procedure H&P Update DATE OF PROCEDURE: April 27, 2023 DATE H&P PERFORMED: 03/21/23 H&P UPDATE INFORMATION: I have reviewed H&P completed within last 30 days, I have examined patient prior to procedure, No changes to prior documentation and H&P is in [facility] EMR on date indicated CHANGES TO PREVIOUS DOCUMENTATION: None PREOP DIAGNOSIS: Left bunion and second hammertoe. PLANNED PROCEDURE: Operation Date: 04/27/23 08:20 Proposed Procedures p Arthrodesis Foot Foot Fusion/ Left first metatarsal phalangeal joint fusion(Left) - ELSA Perez Tendon Transfer Foot/ Left Foot(Left) - ELSA Perez Hammertoe Correction/Left second hammertoe correction(Left) - Franck Knox DPM
--- NOTE | 2023-04-27 08:40 | P.OP_ITS ---
Operative Report Date of procedure: April 27, 2023 Pre-op diagnosis: Hallux rigidus of left foot M20.22, Hammer toe of left foot M20.42 and Contracture, left foot M24.575 Post-op diagnosis: Hallux rigidus of left foot M20.22, Hammer toe of left foot M20.42 and Contracture, left foot M24.575 Procedure done: Left first metatarsal phalangeal joint fusion. CPT code 98360 Left foot deep flexor tendon transfer. CPT code 05113 Left second hammertoe correction. CPT code 17294 Procedure:?Left first metatarsal phalangeal joint fusion, Tendon transfer left foot and Left second hammertoe correction CPT codes: CPT code 38402, CPT code 89095 and CPT code 22557 Implants: Graettinger first metatarsal phalangeal arthrodesis plate with 2.7 and 3.5 screws, 3 mm homerun screw, Graettinger 2 mm screw at second toe, 3-0 Vicryl, 4-0 Vicryl, 4-0 nylon Specimens removed/disposition: None Pathology: None Surgeon: Franck Knox DPM Dental Laboratory Manager: Ba TERESA Estimated blood loss: 2 mL 47 IV fluids: 0 Urine output: See intraoperative documentation Complications: None Brief History: Patient requesting left first metatarsophalangeal arthrodesis and left second hammertoe correction, has failed conservative treatments as outlined in HPI. I reviewed at length with the patient, the risks, potential complications, benefits, alternatives, expectations, and typical outcomes associated with the surgery. The risks and potential complications were explained in detail, including but not limited to infection, wound dehiscence or soft tissue complications, bleeding and hematoma, chronic edema, neuritis or nerve damage producing numbness or chronic pain, CRPS, failure to relieve pain or worsening pain, thick / painful / unsightly scar, limited motion / stiffness, malposition, delayed union, malunion, or nonunion, fracture, reaction to implants, anesthetic complications, venous thromboembolism, and deformity recurrence. I discussed the notion of no regrets with the patient as it pertains to complications and outcomes. The patient seemed to understand the nature of the proposed care and required convalescence. They asked appropriate questions, answered to their satisfaction. They are aware no guarantees can be made as to a satisfactory outcome and they understand there may be other possible unforeseen complications or outcomes not listed here that will be treated accordingly if they arise. There were no written or implied guarantees given to the patient. They gave informed consent to proceed. Procedure: Under mild sedation patient was brought to the operating room and remained on the gurney in supine position. A timeout was performed. Anesthesia was then administered by the anesthesia service. Local anesthesia was injected by myself with 30 cc of 0.5 sent Marcaine plain and a left first and second ray block fashion. Additional Exparel was infiltrated subcutaneously in a grid like fashion per automatic splicing machine operator recommendation and technique, 10 cc. Well-padded pneumatic tourniquet applied to the left ankle. Left lower extremity was scrubbed, prepped and draped utilizing normal aseptic technique. Left foot was exanguinated with Esmarch bandage and tourniquet inflated to 250 mmHg. Attention was directed to the left first metatarsal phalangeal joint which was noted to have a hallux valgus deformity with prominent first metatarsal head medially. Curvilinear incision was made medial and parallel to the extensor hallucis longus tendon with dissection carried down through subcutaneous tissue to the layer of periosteum, care was taken to retract and preserve neurovascular and tendinous structures. All bleeders were ligated and cauterized as necessary. Periosteal and capsular incision was performed and the head of the first metatarsal and base of the proximal phalanx were denuded of articular surface with cone and cup reamers followed by irrigation and fenestrating drill bit for subchondral drilling at the arthrodesis site. The first metatarsal phalangeal joint arthrodesis site was held in position with slight valgus, neutral frontal plane and slight dorsiflexion and fixated with a dorsal locking plate with 2.7 mm locking screws distally, 3.5 millimeter screws proximally and a 3 mm homerun screw. Excellent bony apposition and compression noted, hardware was in appropriate alignment without of violation of adjacent joints appreciated on AP, oblique and lateral view on intraoperative C arm. The incision was irrigated with saline solution and closed in a layered fashion. Capsular and periosteal structures reapproximated with 3-0 Vicryl, subcutaneous tissue reapproximated 4-0 Vicryl and skin with 4-0 nylon. Attention was then directed to a flexion contracture of the left second toe. A linear incision was performed over the left second toe encompassing the second distal and proximal interphalangeal joints. Distal interphalangeal joint was distracted after capsulotomy is performed in transverse tenotomy was performed of the extensor tendons dorsally, transected the intermediate distal articular surface of the phalanx and distal proximal surface of the articular surface with sagittal saw. Flexor tendon was then visualized split longitudinally and wrapped medial laterally and secured to the dorsal aspect of the second toe with 4-0 Vicryl this effectively transferred the flexor tendon to help reduce the sagittal plane dorsiflexion of the left second toe transferring the flexor tendon to extensor. Saline solution was utilized to irrigate the incision. Arthroplasty arthrodesis was then performed of the distal interphalangeal joint of the left second toe with hammertoe correction being fixated with a Graettinger 2 mm screw with excellent bony apposition and compression noted. Hardware is noted to be intramedullary and position of the left second toe rectus. Incision was irrigated copious amounts of sterile skin solution. Extensor tendon reapproximated with 4-0 Vicryl. Skin closed with 4-0 nylon. Dressings consisting of Adaptic, sterile 4 x 4's, Kerlix and Po wrap followed by application of a cam boot was applied to the left lower extremity and tourniquet was released. Prompt hyperemic response was noted to the distal digits of the left foot. Patient tolerated the procedure and anesthesia well and was transferred to the PACU with vital signs stable and vascular status intact. Following a period of postoperative monitoring she will be discharged home may be heel touch for transfers, is to elevate her left foot while resting. Was given at home care instructions, scheduled follow-up and my cell phone number to contact me with any postoperative questions or concerns.
--- NOTE | 2023-04-27 08:40 | P.BOP_ITS ---
Date of Procedure: 04/27/23 Surgeon: Franck Knox DPM [employer] Adminstrator(s): Ba TERESA Procedure(s) performed: Deep hardware removal left foot. Left first metatarsal phalangeal joint fusion. Left second hammertoe correction with tendon transfer. Findings of the procedure(s): None Estimated blood loss: 2 Specimen(s) removed: Removed 1 screw without fragmentation or failure. Post-operative diagnosis: Painful retained hardware, hallux valgus and hallux rigidus left, left foot contracture and left second hammertoe. No complications with anesthesia or surgery.
[2023-04-27] MEDS: clindamycin 600 MG/50 ML PREMIX 100 MG IV (08:47)
[2023-04-27] MEDS: BUPivacaine 0.5% INJ 30 mL INJECTION (09:18)
[2023-04-27] MEDS: BUPivacaine liposome 13.3 mg/mL SDV 10 mL 133 MG INFILTRATI (09:19)
[2023-04-27] MEDS: HYDROcodone-acetaminophen 10-325 mg Tablet 1 TAB PO (10:43)
--- NOTE | 2023-04-27 11:15 | ANE.PACU2 ---
Inpatient post-anesthesia follow up: Airway intact: Yes Vital signs: Temperature 97.4 F Pulse Rate 69 Respiratory Rate 18 Blood Pressure 124/68 Pulse Oximetry 95 Oxygen Delivery Me thod Room Air Oxygen Flow Rate Fraction of Inspir ed Oxygen Hydration adequate: Yes Nausea and vomiting: No Pain level: 1 Mental status: Baseline
== END 2023-04-27 11:16 | disposition home or self-care (01) ==
PROVIDERS: PCP Nurse Practitioner Family; Visit Provider Podiatrist Foot & Ankle Surgery
PROC: (CPT 28740; principal; 2023-04-27 08:10)
PROC: (CPT 27691; 2023-04-27 08:10)
PROC: (CPT 28285; 2023-04-27 08:10)
PROC: (CPT 27691; 2023-04-27 08:10)
DX: M20.22 Hallux rigidus, left foot (principal); M20.42 Other hammer toe(s) (acquired), left foot; M24.575 Contracture, left foot; J44.9 Chronic obstructive pulmonary disease, unspecified; I48.91 Unspecified atrial fibrillation; I10 Essential (primary) hypertension; E11.9 Type 2 diabetes mellitus without complications; Z79.4 Long term (current) use of insulin; Z86.718 Personal history of other venous thrombosis and embolism; F17.210 Nicotine dependence, cigarettes, uncomplicated
CPT/HCPCS: 27691; 28750; 28825; 36416; 73620; 76000; 82962; C1713; C9290; J2371; J2704; J3010; J3490; J7030

== ENCOUNTER → 2023-05-10 13:13 | Outpatient (BNVA) | payer MEDICARE, MEDICAID, SELFPAY | PROVIDERS: PCP Nurse Practitioner Family; Visit Provider Podiatrist Foot & Ankle Surgery | DX: Z98.890 Other specified postprocedural states (principal) | CPT/HCPCS: 73630; 99024 ==

== ENCOUNTER → 2023-05-31 14:52 | Outpatient (BNVA) | payer MEDICARE, MEDICAID, SELFPAY | PROVIDERS: PCP Nurse Practitioner Family; Visit Provider Podiatrist Foot & Ankle Surgery | DX: Z98.890 Other specified postprocedural states (principal) | CPT/HCPCS: 73630; 99024 ==

== ENCOUNTER → 2023-06-11 13:31 | Outpatient (BNVA) | payer MEDICARE, MEDICAID, SELFPAY | PROVIDERS: PCP Nurse Practitioner Family; Visit Provider Podiatrist Foot & Ankle Surgery | DX: Z98.890 Other specified postprocedural states (principal) | CPT/HCPCS: 73630; 99024 ==

== ENCOUNTER → 2023-06-19 08:50 | Outpatient (BNVA) | payer MEDICARE, MEDICAID, SELFPAY | PROVIDERS: PCP Nurse Practitioner Family; Referring Provider Podiatrist Foot & Ankle Surgery; Visit Provider Student in an Organized Health Care Education/Training Program | DX: G56.02 Carpal tunnel syndrome, left upper limb (principal); M65.332 Trigger finger, left middle finger | CPT/HCPCS: 73130; 99204 ==

== ENCOUNTER 2023-08-01 08:10 | Day surgery (SDC) | payer MEDICARE, MEDICAID, SELFPAY ==
[2023-08-01 09:01] VITALS: BP 150/99; PULSE 74; RESP 18; TEMP 36.3; BMI 33.0
[2023-08-01] MEDS: acetaminophen 1,000 MG/100 ML PIGGYBACK 400 MG IV (09:14)
[2023-08-01] MEDS: sodium chloride 0.9% 1,000 ML 30 ML IV (09:14)
[2023-08-01] MEDS: scopolamine 1.5 Patch 1 PATCH TRANSDERMA (09:14)
[2023-08-01 09:15] LABS: Glucose Point of Care 185 mg/dL (70-110)
[2023-08-01] MEDS: ketorolac 30 mg/mL INJ IVP (09:15)
--- NOTE | 2023-08-01 10:17 | W.PM.OPSFHP ---
Same Day Surgery H&P Indication for Procedure/HPI DATE OF PROCEDURE: August 01, 2023 CHIEF COMPLAINT/INDICATIONFOR SURGICAL PROCEDURE: Left middle finger trigger PREOP DIAGNOSIS: Left middle finger trigger PLANNED PROCEDURE: Operation Date: 08/01/23 10:35 Proposed Procedures p Trigger Finger Release Left Middle Finger(Left) - Arcadio Hazel, Medications/Allergies* Home Medications Medication Instructions Recorded Confirmed Type apixaban 5 mg tablet (Eliquis) 5 mg PO BID 04/17/19 07/31/23 History cholecalciferol (vitamin D3) 50 2,000 unit PO BID 04/17/19 07/31/23 History mcg (2,000 unit) chewable tablet diltiazem HCl 120 mg 240 mg PO DAILY 04/17/19 07/31/23 History capsule,extended release 24 hr (Cartia XT) levothyroxine 100 mcg tablet 100 mcg PO DAILY 04/17/19 07/31/23 History lisinopril 20 mg tablet 20 mg PO BID 04/17/19 07/31/23 History multivitamin (Multiple Vitamins 1 tab PO DAILY 04/17/19 07/31/23 History tablet) vitamin B complex (B 1 tab PO DAILY 04/17/19 07/31/23 History Complex-Vitamin B12 tablet) gabapentin 300 mg capsule 300 mg PO DAILY 06/22/19 07/31/23 History pravastatin 10 mg tablet 40 mg PO BEDTIME 02/04/20 07/31/23 History buspirone 5 mg tablet 5 mg PO BID 05/25/22 07/31/23 History escitalopram oxalate 10 mg tablet 10 mg PO DAILY 05/25/22 07/31/23 History glipizide 10 mg tablet, extended 10 mg PO DAILY 05/25/22 07/31/23 History release 24 hr insulin glargine 100 unit/mL (3 8 unit SUBCUT BEDTIME 05/25/22 07/31/23 History mL) subcutaneous pen (Lantus Solostar U-100 Insulin) ropinirole 0.5 mg tablet 0.5 mg PO BID 05/25/22 07/31/23 History sitagliptin phosphate 100 mg 100 mg PO DAILY 04/26/23 07/31/23 History tablet (Januvia) tiotropium bromide 1.25 2 puff inhalation DAILY PRN 07/31/23 07/31/23 History mcg/actuation mist for inhalation Shortness Of Breath (Spiriva Respimat) Allergies/Adverse Reactions Allergy/AdvReac Type Severity Reaction Status Date / Time ampicillin Allergy ALGY-Hives Verified 08/01/23 08:58 erythromycin base Allergy ALGY-Hives Verified 08/01/23 08:58 Penicillins Allergy ALGY-Hives Verified 08/01/23 08:58 Current Medications: Generic Name Dose Route Start Last Admin Trade Name Freq PRN Reason Stop Dose Admin Sodium Chloride 1,000 mls @ 30 mls/hr 08/01/23 09:00 08/01/23 09:14 Sodium Chloride 0.9% IV 08/02/23 08:59 30 mls/hr .Q24H RON Administration Pertinent History/Comorbid Conditions* Medical History (Updated 04/27/23 @ 06:45 by Franck Knox DPM) DVT (deep venous thrombosis) Family History (Updated 04/17/19 @ 14:05 by Sandra Saleem MA) Diabetes Cancer Hypertension Stroke Social History Smoking and tobacco/nicotine status: current some day tobacco/nicotine user cigarettes Years cigarettes smoked: 20 Quit status (tobacco/nicotine): considering quitting Second hand smoke exposure: Yes Alcohol intake: never Substance/Drug Use: never Lives independently: Yes Household members: none Housing: House Marital status: Life Partner Current occupational status: disabled Pets and animals: Yes Do you think of yourself as: Straight/Heterosexual Current gender identity: Female Pertinent Exam Findings alert, oriented x 3, operative site marked and procedure specific exam findings Please refer to detailed orthopedic examination on 06/19/2023: Listed below: Patient has severe tenderness to palpation over the left middle finger over the A1 sanjuana. left hand exam - healed carpal incision - negative tinels, negative median nerve compression test - tender over the A1 sanjuana of left middle finger - palpable nodule with flexion of the middle finger with mechanical catching noted - smooth tendon gliding and centralizationPatient is able to make a fist but decreased range of motion to the left middle finger Recommendations Surgery/Procedure today Other Plans: Plan to proceed to the OR today for left middle finger trigger release. She understands and Zetts procedure risk benefits complication alternatives of surgery and through shared decision make elects proceed with surgical intervention. All questions answered. Coding Level of Care Code Acute Code for Chg Saulo
--- NOTE | 2023-08-01 10:21 | ANES.PREANE2 ---
Pre-Anesthetic Assessment Height/Weight: Height 1.68 m Weight 92.986 kg Temp Pulse Resp BP O2 Del Method 97.3 F L 74 18 150/99 Room Air 08/01/23 09:01 08/01/23 09:01 08/01/23 09:01 08/01/23 09:01 08/01/23 09:09 Preop Diagnosis: Left middle finger trigger Operation Date: 08/01/23 10:35 Proposed Procedures p Trigger Finger Release Left Middle Finger(Left) - Arcadio Geary, DO Familial anesthetic complications: None Was Beta Rocael taken within 24 hours: N/A Was Clonidine taken within 24 hours: N/A Last intake: Intake Last Liquid Date 07/31/23 Last Liquid Time 21:00 Last Solid Date 07/31/23 Last Solid Time 21:00 Social Tobacco and No alcohol Exam alert, oriented x 3, clear to auscultation bilaterally and regular rate & rhythm Airway Mallampati: Class IV Dentition: false Pulmonary Asthma, Chronic Obstructive Pulmonary Disease and Sleep Apnea CV/HEM Atrial Fibrillation hx PE Metabolic Diabetes Mellitus, Hyperlipidemia, Morbid Obesity and Thyroid Disease Anesthetic Plan ASA status: 4 Anesthesia: MAC Risk of > 500 ml blood loss (7ml/kg in children): No Medications/Allergies Home Medications Medication Instructions Recorded Confirmed Last Taken Type apixaban 5 mg tablet (Eliquis) 5 mg PO BID 04/17/19 07/31/23 07/24/23 History cholecalciferol (vitamin D3) 50 2,000 unit PO BID 04/17/19 07/31/23 07/31/23 History mcg (2,000 unit) chewable tablet diltiazem HCl 120 mg 240 mg PO DAILY 04/17/19 07/31/23 08/01/23 06:00 History capsule,extended release 24 hr (Cartia XT) levothyroxine 100 mcg tablet 100 mcg PO DAILY 04/17/19 07/31/23 07/31/23 History lisinopril 20 mg tablet 20 mg PO BID 04/17/19 07/31/23 07/31/23 History multivitamin (Multiple Vitamins 1 tab PO DAILY 04/17/19 07/31/23 07/31/23 History tablet) vitamin B complex (B 1 tab PO DAILY 04/17/19 07/31/23 07/31/23 History Complex-Vitamin B12 tablet) gabapentin 300 mg capsule 300 mg PO DAILY 06/22/19 07/31/23 07/31/23 History pravastatin 10 mg tablet 40 mg PO BEDTIME 02/04/20 07/31/23 07/31/23 History montelukast 10 mg tablet 10 mg PO DAILY #30 tabs 03/18/20 07/31/23 07/31/23 Rx (Singulair) raised toilet seat #1 ea 12/14/20 06/19/23 Unknown Rx buspirone 5 mg tablet 5 mg PO BID 05/25/22 07/31/23 07/31/23 History escitalopram oxalate 10 mg tablet 10 mg PO DAILY 05/25/22 07/31/23 07/31/23 History glipizide 10 mg tablet, extended 10 mg PO DAILY 05/25/22 07/31/23 07/31/23 History release 24 hr insulin glargine 100 unit/mL (3 8 unit SUBCUT BEDTIME 05/25/22 07/31/23 07/24/23 History mL) subcutaneous pen (Lantus Solostar U-100 Insulin) ropinirole 0.5 mg tablet 0.5 mg PO BID 05/25/22 07/31/23 07/31/23 History hydroxyzine HCl 25 mg tablet 25 mg PO QID PRN itching 7 days 06/02/22 07/31/23 Unknown Rx #28 tabs diphenhydramine HCl 25 mg capsule 25 mg PO TID PRN allergy symptoms 07/13/22 07/31/23 07/31/23 Rx (Benadryl) #21 caps Diabetic shoes with 3 sets of #1 ea 12/07/22 06/19/23 Unknown Rx insoles sitagliptin phosphate 100 mg 100 mg PO DAILY 04/26/23 07/31/23 07/31/23 History tablet (Januvia) tiotropium bromide 1.25 2 puff inhalation DAILY PRN 07/31/23 07/31/23 Unknown History mcg/actuation mist for inhalation Shortness Of Breath (Spiriva Respimat) ondansetron 4 mg disintegrating 4 mg PO Q8H PRN nausea and 08/01/23 Unknown Rx tablet vomiting 3 days #9 tabs tramadol 50 mg tablet 50 mg PO Q6H PRN pain #20 tabs 08/01/23 Unknown Rx Allergies Allergy/AdvReac Type Severity Reaction Status Date / Time ampicillin Allergy ALGY-Hives Verified 08/01/23 08:58 erythromycin base Allergy ALGY-Hives Verified 08/01/23 08:58 Penicillins Allergy ALGY-Hives Verified 08/01/23 08:58 Current Medications Generic Name Dose Route Start Last Admin Trade Name Freq PRN Reason Stop Dose Admin Sodium Chloride 1,000 mls @ 30 mls/hr 08/01/23 09:00 08/01/23 09:14 Sodium Chloride 0.9% IV 08/02/23 08:59 30 mls/hr .Q24H RNO Administration PFSH Anesthesia Medical History DVT (deep venous thrombosis) Family History Other Cancer Diabetes Hypertension Stroke Social History Smoking and tobacco/nicotine status: current some day tobacco/nicotine user cigarettes Years cigarettes smoked: 20 Quit status (tobacco/nicotine): considering quitting Second hand smoke exposure: Yes Alcohol intake: never Substance/Drug Use: never Lives independently: Yes Household members: none Housing: House Marital status: Life Partner Current occupational status: disabled Pets and animals: Yes Do you think of yourself as: Straight/Heterosexual Current gender identity: Female Data Anesthesia Cardiac Studies: No Data to Display
[2023-08-01] MEDS: clindamycin 900 MG/50 ML PREMIX 100 MG IV (10:32)
[2023-08-01] MEDS: BUPivacaine 0.5% INJ 10 mL 5 ML INJECTION (10:57)
[2023-08-01] MEDS: ROPivacaine 0.5% SDV 30 mL 25 MG INJECTION (10:57)
--- NOTE | 2023-08-01 11:02 | P.OP_ITS ---
Operative Report Date of procedure: August 01, 2023 Surgeon: Arcadio Hazel DO Computing Services Director: Johnny Hazel PA-C: PA was necessary for assistance in this case with hand positioning to execute the procedure, retraction and protection of neurovascular structures as well as to assist with wound closure and dressing application. Procedure: Preoperative diagnosis: left middle finger trigger Post-op diagnosis: Same Procedure done: Left middle finger?trigger?release Surgeon: Arcadio Hazel DO Estimated blood loss: 2cc Tourniquet time 7mins Complications: None Condition: stable Disposition: same day Brief History: Patient's been seen and worked up in the outpatient setting and findings consistent with preoperative diagnosis of Left middle finger?trigger.? Pt has failed conservative treatment.? Continues to have mechanical locking and catching.? Severe pain as well.? We talked about treatment options nonoperative versus operative intervention.? ?Patient understands the risk benefits complication alternatives of surgical nonsurgical treatment options.? Understanding risks with surgery pt elects proceed with surgical intervention.? Consent obtained in the office.? Here today to proceed with surgical intervention.? All questions answered. Procedure: Patient was seen and evaluated in the preoperative holding area.? Consent was reviewed and signed with patient.? Seen evaluated by Anesthesia Department.? Once cleared for surgery was brought back to the operative suite.? Placed in supine position on the OR table all bony prominences well-padded patient properly secured to the bed.? Patient's Left arm was then placed to the armboard.? A nonsterile tourniquet applied to the Left upper arm.? Patient's Left upper extremity was then prepped and draped in standard orthopedic fashion.? Final timeout performed.? Patient received appropriate preoperative antibiotics. Esmarch tourniquet was used exsanguinate the Left upper extremity tourniquet ins ufflated to 250 mmHg. Under sterile aseptic technique local digital block was performed to the Left middle finger.? Once appropriately anesthetized a standard oblique incision was made centering over the A1 sanjuana following patient's flexor crease.? Sharp scalpel incision was made only through skin and then switched to Littler dissection scissors and spread longitudinally directly over the flexor tendon sheath.? I then mobilized both radially and ulnarly and Kasdan retractors were used and placed by my health center assistant to protect neurovascular bundle.? Next I visualized the A1 sanjuana and this was incised with a scalpel.? I then switched to dissection scissors and released the A1 sanjuana both proximally as well as distally to its entirety.? Significant tendon sheath fluid was noted consistent with inflammation.? Mild fraying of the flexor tendons noted but no tear.? At this point I utilized a rag nail and pulled the tendons FDS and FDP out of the incision and no?triggering was noted.? I then had anesthesia wake up the patient and patient was able to actively flex and extend with no?triggering.? This point thorough irrigation was performed.? Tourniquet deflated hemostasis satisfactory with bipolar.? I then subsequently closed the incision with interrupted nylon suture.? Xeroform 4 x 4's, Kerlix and an Po wrap was applied for a bulky soft dressing.? Patient was then subsequently awakened from anesthesia and taken to PACU in stable condition tolerated procedure without issues. Disposition: Patient taken back in stable condition recovering well.? Patient will receive appropriate discharge instruction as well as pain medication postoperatively.? Patient to follow-up with me in the office in 2 weeks for repeat evaluation and incision check.? Patient understands that any questions or concerns and contact the office.? All questions answered.
[2023-08-01 11:09] VITALS: BP 94/65; PULSE 62; RESP 16; TEMP 36.2; O2SAT 98
[2023-08-01 11:14] VITALS: BP 139/66; PULSE 61; RESP 20; O2SAT 96
[2023-08-01 11:19] VITALS: BP 162/60; PULSE 60; RESP 20; O2SAT 97
--- NOTE | 2023-08-01 11:20 | P.BOP_ITS ---
Date of Procedure: [August 01, 2023] Surgeon: [Dr. Hazel i DO] Senior Systems Analyst(s): [Johnny Hazel PA-C] Procedure(s) performed: [Trigger Finger Release Left Middle Finger(Left)] Findings of the procedure(s): [Left middle trigger finger] Estimated blood loss: [2 ml] Specimen(s) removed: [n/a] Post-operative diagnosis: [Left middle trigger finger]
--- NOTE | 2023-08-01 11:22 | P.PCN_ITS ---
PACU note Narrative: Patient is a 68-year-old female just had left middle trigger finger release. Patient transferred to PACU in stable condition. Pain is well controlled. Dressing on hand is dry and in place. Patient's fingers are warm and well- perfused. Patient can wiggle fingers. normal cap refill under 2 seconds. Patient has normal elbow range of motion. Unable to assess sensation due to residual localized anesthetic. Exam: awake Disposition: discharged
[2023-08-01 11:24] VITALS: BP 130/54; PULSE 59; RESP 20; TEMP 36.3; O2SAT 96
[2023-08-01 11:30] VITALS: BP 152/64; PULSE 61; RESP 18; TEMP 36.3; O2SAT 97
--- NOTE | 2023-08-01 12:10 | ANE.PACU2 ---
Inpatient post-anesthesia follow up: Airway intact: Yes Vital signs: Temperature 97.4 F Pulse Rate 61 Respiratory Rate 18 Blood Pressure 152/64 Pulse Oximetry 97 Oxygen Delivery Me thod Room Air Oxygen Flow Rate Fraction of Inspir ed Oxygen Hydration adequate: Yes Nausea and vomiting: No Pain level: 1 Mental status: Baseline
== END 2023-08-01 12:10 | disposition home or self-care (01) ==
PROVIDERS: PCP Nurse Practitioner Family; Visit Provider Student in an Organized Health Care Education/Training Program
PROC: (CPT 26055; principal; 2023-08-01 10:25)
DX: M65.332 Trigger finger, left middle finger (principal); J44.9 Chronic obstructive pulmonary disease, unspecified; G47.30 Sleep apnea, unspecified; I48.91 Unspecified atrial fibrillation; Z86.711 Personal history of pulmonary embolism; E66.01 Morbid (severe) obesity due to excess calories; Z68.33 Body mass index [BMI] 33.0-33.9, adult; F17.210 Nicotine dependence, cigarettes, uncomplicated
CPT/HCPCS: 26055; 36416; 82962; J0131; J1885; J2704; J2795; J3490; J7030

== ENCOUNTER 2023-08-20 17:10 | Emergency (ER) | payer MEDICARE, MEDICAID, SELFPAY ==
[2023-08-20 17:11] VITALS: BP 183/111; PULSE 89; RESP 14; TEMP 36.8; O2SAT 97
--- NOTE | 2023-08-20 17:28 | XRR_ITS ---
PROCEDURE INFORMATION: Exam: XR Left Ribs Exam date and time: 08/20/2023 5:53 PM Age: 68 years old Clinical indication: Injury or trauma; Fall; Rib area, left side; Blunt trauma; Additional info: Fall/pain TECHNIQUE: Imaging protocol: Radiologic exam of the left ribs. Views: 2 views. COMPARISON: CR XR ribs BI mn 4V w [id number] [id number] 01/29/2023 4:01 PM FINDINGS: Bones/joints: There are degenerative changes in the visualized spine. Lower lumbar postoperative changes. Organs: Clips are present in the right upper quadrant consistent with prior cholecystectomy. Soft tissues: Normal. XR/XR ribs LT 2V* [id number] IMPRESSION: No evidence for acute fracture.
--- NOTE | 2023-08-20 17:28 | XRR_ITS ---
PROCEDURE INFORMATION: Exam: XR Right Hip Exam date and time: 08/20/2023 5:57 PM Age: 68 years old Clinical indication: Pelvic pain; Additional info: Fall/pain TECHNIQUE: Imaging protocol: Radiologic exam of the right hip. Views: 1 view hip with pelvis when performed. COMPARISON: CT hip RT wo con* [id number] 06/23/2019 9:21 AM FINDINGS: Bones/joints: There are small marginal osteophytes off the lateral aspect of the acetabulum. There are postoperative changes in the lumbosacral spine. Moderate degenerative changes extend across the pubic symphysis. There are moderate degenerative changes across the sacroiliac joints. Soft tissues: Unremarkable. XR/XR hip RT 2-3V wo/w pel* [id number] IMPRESSION: There are degenerative changes as described above. No evidence for acute fracture.
--- NOTE | 2023-08-20 17:28 | XRR_ITS ---
PROCEDURE INFORMATION: Exam: XR Right Tibia and Fibula Exam date and time: 08/20/2023 6:03 PM Age: 68 years old Clinical indication: Pain; Lower leg; Right; Additional info: Fall/pain/abrasions TECHNIQUE: Imaging protocol: Radiologic exam of the right tibia and fibula. Views: 2 views. COMPARISON: No relevant prior studies available. FINDINGS: Bones/joints: Total knee replacement. Distal femoral and proximal tibial components appear intact without obvious complication. 7 mm geographic lucency through the distal tibia has benign features. Soft tissues: There are benign-appearing soft tissue calcifications. XR/XR tibia fibula RT 2V [id number] IMPRESSION: No acute findings.
--- NOTE | 2023-08-20 17:28 | XRR_ITS ---
PROCEDURE INFORMATION: Exam: XR Right Elbow Exam date and time: 08/20/2023 6:06 PM Age: 68 years old Clinical indication: Pain; Elbow; Right; Additional info: Fall/pain TECHNIQUE: Imaging protocol: Radiologic exam of the right elbow. Views: 3 or more views. COMPARISON: No relevant prior studies available. FINDINGS: Bones/joints: Normal. Soft tissues: Normal. XR/XR elbow RT min 3V* [id number] IMPRESSION: No acute findings.
--- NOTE | 2023-08-20 17:29 | ED_ITS ---
HPI - Fall General: Chief Complaint: Fall Stated Complaint: fall Time Seen by Provider: 08/20/23 17:18 Source: patient Mode of arrival: ambulatory Limitations: no limitations History of Present Illness: Patient is a 68-year-old female who presents to the emergency department due to a fall last night. Patient states she tripped over one of her puppies, and primarily landed on her right side. However she arrives stating she has pain all over. She does report a history of fibromyalgia and currently does take gabapentin and tramadol. She notes pain to her right elbow, right reza, right hip, and left ribs. She notes that it was difficult to breathe last night, however this was due to a flareup of pain from her fibromyalgia. She states that she has no other symptoms to report at this time other than the pain to these areas. There is an abrasion to the right reza, that is bandaged and does not appear to be anything more than superficial bruise. She notes that she has not taken anything for pain other than her regularly prescribed medications. She was ambulatory into the emergency department, states that this does make her right leg pain worse. No other symptoms or concerning historical factors reported at this time. With the fall, she did not hit her head, lose consciousness, and there was no prolonged downtime. She was able to get up under her own power. complaint: fall Onset (ago): day(s) Fall from: standing Place fall occurred: home Loss of consciousness: None Prolonged down time: no Symptoms prior to fall: none Context: tripped/slipped Location of injury: chest (Left ribs) Location of injury - extremities: Right: elbow, thigh (Hip) and lower leg Associated symptoms-after fall: Reports no associated symptoms; Denies abdominal pain, chest pain, headache(s) or neck pain Review of Systems General: Reports: 10 or more systems reviewed and unremarkable except in HPI and below Const: Reports: other (Fall); Denies: fever(s) or chills Card: Denies: chest pain Resp: Denies: dyspnea or productive cough GI: Denies: abdominal pain, nausea, vomiting or diarrhea : Denies: flank pain Musc: Reports: extremity pain (Right reza), joint pain (Right elbow/hip) and other (Left rib pain); Denies: neck pain, back pain, extremity swelling, joint swelling, joint redness, joint warmth, limited range of motion or muscle weakness Skin/Breast: Denies: rash Neuro: Denies: headache(s), numbness in extremities or weakness in extremities PFSH ED PFSH: Medical History DVT (deep venous thrombosis) Family History Other Cancer Diabetes Hypertension Stroke Social History Smoking and tobacco/nicotine status: current some day tobacco/nicotine user cigarettes Years cigarettes smoked: 20 Quit status (tobacco/nicotine): considering quitting Second hand smoke exposure: Yes Alcohol intake: never Substance/Drug Use: never Lives independently: Yes Household members: none Housing: House Marital status: Life Partner Current occupational status: disabled Pets and animals: Yes Do you think of yourself as: Straight/Heterosexual Current gender identity: Female Physical Exam Const: COMMON NORMALS: no acute distress, patient oriented x3, no limitations, healthy appearing, alert and well nourished HENMT: COMMON NORMALS: normocephalic and atraumatic HEAD & SCALP: normocephalic and atraumatic Neck/C-Spine: COMMON NORMALS: full ROM, supple and no meningeal signs Chest: OTHER: Very mild reproducible tenderness to palpation of the left lateral ribs. Resp: COMMON NORMALS: normal respiratory effort, No use of accessory muscles and clear to auscultation bilaterally EFFORT & INSPECTION: Yes able to speak in complete sentences and Yes symmetric chest movement AUSCULTATION: clear to auscultation bilaterally Cardio: COMMON NORMALS: regular rate and regular rhythm RATE: regular rate RHYTHM: regular rhythm Back/Pelvis: THORACIC SPINE/UPPER BACK: Yes normal to inspection and Yes thoracic ROM normal LUMBAR SPINE/LOWER BACK: Yes normal to inspection and Yes lumbar ROM normal Extremity: COMMON NORMALS: full ROM, capillary refill normal, no joint enlargement, no clubbing, cyanosis or edema, no calf tenderness and no pedal edema NARRATIVE EXTREMITY EXAM: Postoperative scar right knee. No significant reproducible tenderness to palpation of the right hip or right reza. There is mild reproducible pain of the right elbow joint, though there is full range of motion with all extremities and without associated pain. She is ambulatory into the emergency department without any obvious gait disturbances or observable pain. No bruising, trauma, or swelling noted. Neuro: COMMON NORMALS: patient oriented x3, moves all extremities, no focal motor deficits and no sensory deficits noted SENSORIUM/ORIENTATION: Yes alert MENINGEAL SIGNS: Yes no meningeal signs Skin: NARRATIVE SKIN EXAM: Small superficial abrasion noted to right distal reza Course Vital Signs: Vital signs: Vital Signs Temperature 98.3 F 08/20/23 19:08 Pulse Rate 81 08/20/23 19:08 Respiratory Rate 16 08/20/23 19:08 Blood Pressure 168/92 08/20/23 19:08 Pulse Oximetry 98 08/20/23 19:08 Oxygen Delivery Me thod Room Air 08/20/23 17:11 MDM - Fall Medical Decision Making Patient presented after having a fall last night injuring multiple areas. Fall was mechanical trip and fall, no symptoms preceded this. Pain is reported to her right elbow, right reza, right hip, and left ribs. Does have history of fibromyalgia and takes tramadol and gabapentin at home. She does appear comfortable on physical examination and overall her exam was unremarkable aside from an obvious abrasion to her right reza. However x-rays of all of the aforementioned areas did not demonstrate any acute findings. She is given a shot of Toradol and upon recheck states that she feels better. She is to continue taking her pain medications at home and ice the affected areas. She will follow-up with primary care for any further evaluation and for any other new concerning symptoms she will return for reevaluation. Lab Data Radiology Impressions Elbow X-Ray 08/20/23 17:28 IMPRESSION: No acute findings. Hip/Pelvis X-Ray 08/20/23 17:28 IMPRESSION: There are degenerative changes as described above. No evidence for acute fracture. Ribs X-Ray 08/20/23 17:28 IMPRESSION: No evidence for acute fracture. Tibia/Fibula X-Ray 08/20/23 17:28 IMPRESSION: No acute findings. All radiology interpretation(s) finalized by discharge Discharge Plan Discharge Patient Disposition: Home Clinical Impression: Contusion of hip, right, Contusion of leg, right, Contusion of elbow, right, Contusion of rib on left side, Fall Condition: Stable Prescriptions: No Action diltiazem HCl [Cartia XT] 120 mg capsule,extended release 24hr 240 mg PO DAILY Eliquis 5 mg tablet 5 mg PO BID lisinopril 20 mg tablet 20 mg PO BID levothyroxine 100 mcg tablet 100 mcg PO DAILY vitamin B complex [B Complex-Vitamin B12] Tablet 1 tab PO DAILY cholecalciferol (vitamin D3) 2,000 unit tablet,chewable 2,000 unit PO BID multivitamin [Multiple Vitamins] Tablet 1 tab PO DAILY pravastatin 10 mg tablet 40 mg PO BEDTIME montelukast [Singulair] 10 mg tablet 10 mg PO DAILY Qty: 30 3RF (DME) Diabetic shoes with 3 sets of insoles See Rx Instructions .Route .MEDSUPPLY Qty: 1 0RF Rx Instructions: As directed (DME) raised toilet seat See Rx Instructions .Route .MEDSUPPLY Qty: 1 0RF Rx Instructions: As directed hydroxyzine HCl 25 mg tablet 25 mg PO QID PRN (Reason: itching) 7 Days Qty: 28 0RF diphenhydramine HCl [Benadryl] 25 mg capsule 25 mg PO TID PRN (Reason: allergy symptoms) Qty: 21 0RF gabapentin 300 mg capsule 300 mg PO DAILY buspirone 5 mg tablet 5 mg PO BID glipizide 10 mg tablet extended release 24hr 10 mg PO DAILY ropinirole 0.5 mg tablet 0.5 mg PO BID escitalopram oxalate 10 mg tablet 10 mg PO DAILY insulin glargine [Lantus Solostar U-100 Insulin] 100 unit/mL (3 mL) insulin pen 8 unit SUBCUT BEDTIME Spiriva Respimat 1.25 mcg/actuation mist 2 puff inhalation DAILY PRN (Reason: Shortness Of Breath) tramadol 50 mg tablet 50 mg PO Q6H PRN (Reason: pain) Qty: 20 0RF Januvia 100 mg Tablet 100 mg PO DAILY Discharge Orders: Discharge ED (Routine); Ordered 08/20/23 Ordered By: Joshua Henson Referrals: Merline Vaca FNP [Primary Care Provider] - Discharge Diet: Usual diet Discharge Activity: Increase activity as tolerated Patient Instructions: Contusion in Adults (ED), Opioid Safety, Pain Management Activity Restrictions/Additional Instructions: Tylenol/ibuprofen for pain. Gentle range of motion exercises as tolerated. Ice to the affected areas. Follow-up with your primary care provider for further evaluation and return with any new or worsening. Coding Level of Care Code ED Extracorporeal Technician for Patti Vernon
[2023-08-20] MEDS: ketorolac 60 mg/2 mL INJ IM (17:35)
[2023-08-20 19:08] VITALS: BP 168/92; PULSE 81; RESP 16; TEMP 36.8; O2SAT 98
== END 2023-08-20 19:06 | disposition home or self-care (01) ==
PROVIDERS: Emergency Provider Physician Assistant; PCP Nurse Practitioner Family
DX: S70.01XA Contusion of right hip, initial encounter (principal); S80.11XA Contusion of right lower leg, initial encounter; S50.01XA Contusion of right elbow, initial encounter; S20.212A Contusion of left front wall of thorax, initial encounter; Z79.01 Long term (current) use of anticoagulants; Z79.4 Long term (current) use of insulin; F17.210 Nicotine dependence, cigarettes, uncomplicated; W01.0XXA Fall on same level from slipping, tripping and stumbling without subsequent striking against object, initial encounter
CPT/HCPCS: 71100; 73080; 73502; 73590; 96372; 96374; 99284; J1885

== ENCOUNTER → 2023-08-21 09:19 | Outpatient (BNVA) | payer MEDICARE, MEDICAID, SELFPAY | PROVIDERS: PCP Nurse Practitioner Family; Visit Provider Physician Assistant | DX: Z98.890 Other specified postprocedural states (principal) | CPT/HCPCS: 99024 ==

== ENCOUNTER → 2023-09-27 07:55 | Outpatient (BNVA) | payer MEDICARE, MEDICAID, SELFPAY | PROVIDERS: PCP Nurse Practitioner Family; Visit Provider Physician Assistant | DX: M16.11 Unilateral primary osteoarthritis, right hip; M25.551 Pain in right hip; M25.552 Pain in left hip | CPT/HCPCS: 73523; 99213 ==

== ENCOUNTER → 2023-10-09 09:29 | Outpatient (BNVA) | payer MEDICARE, MEDICAID, SELFPAY | PROVIDERS: PCP Nurse Practitioner Family; Visit Provider Podiatrist Foot & Ankle Surgery | DX: E11.42 Type 2 diabetes mellitus with diabetic polyneuropathy (principal); M21.41 Flat foot [pes planus] (acquired), right foot; M21.42 Flat foot [pes planus] (acquired), left foot; M20.41 Other hammer toe(s) (acquired), right foot; M20.42 Other hammer toe(s) (acquired), left foot; Z79.4 Long term (current) use of insulin | CPT/HCPCS: 99213 ==

== ENCOUNTER → 2023-11-02 09:33 | Outpatient (BNVA) | payer MEDICARE, MEDICAID, SELFPAY | PROVIDERS: PCP Nurse Practitioner Family; Visit Provider Student in an Organized Health Care Education/Training Program | DX: M16.11 Unilateral primary osteoarthritis, right hip (principal) | CPT/HCPCS: 20610; 77002; J3301 ==

== ENCOUNTER 2023-11-13 14:02 | Emergency (ER) | payer MEDICARE, MEDICAID, SELFPAY ==
[2023-11-13 14:05] VITALS: BP 168/71; PULSE 64; RESP 18; TEMP 36.7; O2SAT 96; BMI 32.8
--- NOTE | 2023-11-13 14:24 | CT_ITS ---
WS: [id number] CT HEAD NONCONTRAST HISTORY: fall TECHNIQUE: Contiguous axial imaging performed through the brain in 3.0 mm imaging. Bone and soft tiss ue windows. Sagittal and coronal reformats reviewed. All CT scans at [facility] use at least one of these dose optimization techniques: automated exposure control; mA and/or kV adjustment per pa tient size (includes targeted exams where dose is matched to clinical indication); or iterative recon struction. DLP: 2091.24 mGy.cm COMPARISON: 04/14/2019 No acute intracranial hemorrhage, midline shift or mass effect. Mild atrophy and small vessel disease. No prior infarct. Ventricles: Normal size with no hydrocephalus. No inferior displacement of the cerebellar tonsils. Paranasal sinuses: As visualized are clear. Mastoid air cells: Well pneumatized. Calvarium and scalp: Skull is intact with no soft tissue edema or swelling. CT/CT head wo con* [id number] IMPRESSION: 1. No acute intracranial hemorrhage or edema. 2. Mild cerebral atrophy and small vessel disease.
--- NOTE | 2023-11-13 14:24 | CT_ITS ---
WS: [id number] CT CERVICAL SPINE HISTORY: fall TECHNIQUE: Contiguous 2.0 mm axial imaging performed through the entire cervical spine. Sagittal and coronal reformats also performed. All CT scans at [facility] use at least one of these dose o ptimization techniques: automated exposure control; mA and/or kV adjustment per patient size (include s targeted exams where dose is matched to clinical indication); or iterative reconstruction. DLP: 2091.24 mGy.cm COMPARISON: None available. C3 and C4 anterolisthesis by 2.5 mm. Remaining disc spaces are narrowed. Marked narrowing of the pred ental space. Facet joints are narrowed but no subluxation or fracture. LEFT curvature of the cervical spine. Lateral masses of C1 and C2 are aligned. The odontoid is intact. Advanced bilateral facet miesha nt arthropathy. Greater on the RIGHT than the LEFT. Component of central and bilateral foraminal sten osis throughout the cervical spine. Severe central and bilateral foraminal stenosis C4-5, C5-6 and C6 -7. Lung apices are clear. CT/CT cervical spin wo con* [id number] IMPRESSION: 1. Anterolisthesis of C3 and C4 by 2.5 mm. No fractures. 2. No facet joint dislocation or subluxation. 3. No cervical spine fractures. 4. Multilevel central and foraminal stenosis, C4-5 through C6-7.
--- NOTE | 2023-11-13 15:41 | W.ED.FALL ---
HPI - Fall General: Chief Complaint: Fall Stated Complaint: fall Time Seen by Provider: 11/13/23 15:36 Source: patient Mode of arrival: ambulatory Limitations: no limitations History of Present Illness: 68-year-old female states that she had fell off her porch she states she had landed on the ground she hit her posterior head has a small hematoma she complains of headache and neck pain. She denies any loss conscious she is on Eliquis. Rates her pain a 4 out of 10 currently. Associated symptoms-after fall: Reports headache(s) and neck pain; Denies abdominal pain or chest pain Related Data Home Medications Medication Instructions Recorded Confirmed apixaban 5 mg tablet (Eliquis) 5 mg PO BID 04/17/19 11/02/23 cholecalciferol (vitamin D3) 50 2,000 unit PO BID 04/17/19 11/02/23 mcg (2,000 unit) chewable tablet diltiazem HCl 120 mg 240 mg PO DAILY 04/17/19 11/02/23 capsule,extended release 24 hr (Cartia XT) levothyroxine 100 mcg tablet 100 mcg PO DAILY 04/17/19 11/02/23 lisinopril 20 mg tablet 20 mg PO BID 04/17/19 11/02/23 multivitamin (Multiple Vitamins 1 tab PO DAILY 04/17/19 11/02/23 tablet) vitamin B complex (B 1 tab PO DAILY 04/17/19 11/02/23 Complex-Vitamin B12 tablet) gabapentin 300 mg capsule 300 mg PO DAILY 06/22/19 11/02/23 pravastatin 10 mg tablet 40 mg PO BEDTIME 02/04/20 11/02/23 buspirone 5 mg tablet 5 mg PO BID 05/25/22 11/02/23 escitalopram oxalate 10 mg tablet 10 mg PO DAILY 05/25/22 11/02/23 glipizide 10 mg tablet, extended 10 mg PO DAILY 05/25/22 11/02/23 release 24 hr insulin glargine 100 unit/mL (3 8 unit SUBCUT BEDTIME 05/25/22 11/02/23 mL) subcutaneous pen (Lantus Solostar U-100 Insulin) ropinirole 0.5 mg tablet 0.5 mg PO BID 05/25/22 11/02/23 sitagliptin phosphate 100 mg 100 mg PO DAILY 04/26/23 11/02/23 tablet (Januvia) tiotropium bromide 1.25 2 puff inhalation DAILY PRN 07/31/23 11/02/23 mcg/actuation mist for inhalation Shortness Of Breath (Spiriva Respimat) Previous Rx's Medication Instructions Recorded montelukast 10 mg tablet 10 mg PO DAILY #30 tabs 03/18/20 (Singulair) raised toilet seat #1 ea 12/14/20 hydroxyzine HCl 25 mg tablet 25 mg PO QID PRN itching 7 days 06/02/22 #28 tabs diphenhydramine HCl 25 mg capsule 25 mg PO TID PRN allergy symptoms 07/13/22 (Benadryl) #21 caps tramadol 50 mg tablet 50 mg PO Q6H PRN pain #20 tabs 08/01/23 diclofenac sodium 1 % topical gel 4 g topical QID #100 grams 09/27/23 (Voltaren Arthritis Pain) Diabetic shoes with 3 sets of #1 ea 10/31/23 insoles Allergies Allergy/AdvReac Type Severity Reaction Status Date / Time ampicillin Allergy ALGY-Hives Verified 11/02/23 09:34 erythromycin base Allergy ALGY-Hives Verified 11/02/23 09:34 Penicillins Allergy ALGY-Hives Verified 11/02/23 09:34 Review of Systems Const: Denies: fever(s), chills, body aches or change in appetite Eyes: Denies: blurry vision or eye discomfort ENMT: Denies: throat pain or dental pain Card: Denies: chest pain Resp: Denies: dyspnea GI: Denies: abdominal pain, nausea, vomiting or diarrhea Musc: Reports: neck pain; Denies: back pain Skin/Breast: Denies: rash Neuro: Reports: headache(s) PFSH ED PFSH: Medical History DVT (deep venous thrombosis) Family History Other Cancer Diabetes Hypertension Stroke Social History Smoking and tobacco/nicotine status: former use of tobacco/nicotine Quit status (tobacco/nicotine): considering quitting Second hand smoke exposure: Yes Alcohol intake: never Substance/Drug Use: never Lives independently: Yes Household members: none Housing: House Marital status: Life Partner Current occupational status: disabled Pets and animals: Yes Do you think of yourself as: Straight/Heterosexual Current gender identity: Female Physical Exam Const: COMMON NORMALS: no acute distress, patient oriented x3 and healthy appearing HENMT: COMMON NORMALS: normocephalic HEAD & SCALP: normocephalic OTHER: Hematoma to posterior scalp Eye: COMMON NORMALS: Equal, round and reactive pupils present and EOMs intact bilaterally PUPIL: Yes Equal, round and reactive pupils present Neck/C-Spine: COMMON NORMALS: full ROM and supple Chest: COMMONS NORMALS: normal inspection of the chest Resp: COMMON NORMALS: normal respiratory effort Cardio: COMMON NORMALS: regular rate, regular rhythm and No murmurs present (Cardio) RATE: regular rate RHYTHM: regular rhythm Extremity: COMMON NORMALS: normal to inspection and full ROM Neuro: COMMON NORMALS: patient oriented x3, moves all extremities and no focal motor deficits Psych: COMMON NORMALS: mental status grossly normal, Normal thought process present and cooperative THOUGHT PROCESS: Normal thought process present Skin: COMMON NORMALS: no rashes or lesions noted and no wounds GENERAL SKIN EXAM: no rashes or lesions noted Course Vital Signs: Vital signs: Vital Signs Temperature 98.0 F 11/13/23 14:05 Pulse Rate 64 11/13/23 14:05 Respiratory Rate 18 11/13/23 14:05 Blood Pressure 168/71 11/13/23 14:05 Pulse Oximetry 96 11/13/23 14:05 Oxygen Delivery Me thod Room Air 11/13/23 14:05 MDM - Fall Medical Decision Making Patient presents here with a closed head injury from a fall imaging here is normal she is well-appearing here she stable for discharge. Medical Records I reviewed the patient's medical records. Lab Data Radiology Impressions Cervical Spine CT 11/13/23 14:24 IMPRESSION: 1. Anterolisthesis of C3 and C4 by 2.5 mm. No fractures. 2. No facet joint dislocation or subluxation. 3. No cervical spine fractures. 4. Multilevel central and foraminal stenosis, C4-5 through C6-7. Head CT 11/13/23 14:24 IMPRESSION: 1. No acute intracranial hemorrhage or edema. 2. Mild cerebral atrophy and small vessel disease. All radiology interpretation(s) finalized by discharge Discharge Plan Discharge Patient Disposition: Home Clinical Impression: Closed head injury Condition: Stable Prescriptions: No Action diltiazem HCl [Cartia XT] 120 mg capsule,extended release 24hr 240 mg PO DAILY Eliquis 5 mg tablet 5 mg PO BID lisinopril 20 mg tablet 20 mg PO BID levothyroxine 100 mcg tablet 100 mcg PO DAILY vitamin B complex [B Complex-Vitamin B12] Tablet 1 tab PO DAILY cholecalciferol (vitamin D3) 2,000 unit tablet,chewable 2,000 unit PO BID multivitamin [Multiple Vitamins] Tablet 1 tab PO DAILY pravastatin 10 mg tablet 40 mg PO BEDTIME montelukast [Singulair] 10 mg tablet 10 mg PO DAILY Qty: 30 3RF diclofenac sodium [Voltaren Arthritis Pain] 1 % gel 4 g topical QID Qty: 100 0RF Rx Instructions: apply to single knee, ankle, foot; for foot includes sole/toes/top of foot (DME) raised toilet seat See Rx Instructions .Route .MEDSUPPLY Qty: 1 0RF Rx Instructions: As directed hydroxyzine HCl 25 mg tablet 25 mg PO QID PRN (Reason: itching) 7 Days Qty: 28 0RF diphenhydramine HCl [Benadryl] 25 mg capsule 25 mg PO TID PRN (Reason: allergy symptoms) Qty: 21 0RF (DME) Diabetic shoes with 3 sets of insoles See Rx Instructions .Route .MEDSUPPLY Qty: 1 0RF Rx Instructions: As directed HOME gabapentin 300 mg capsule 300 mg PO DAILY buspirone 5 mg tablet 5 mg PO BID glipizide 10 mg tablet extended release 24hr 10 mg PO DAILY ropinirole 0.5 mg tablet 0.5 mg PO BID escitalopram oxalate 10 mg tablet 10 mg PO DAILY insulin glargine [Lantus Solostar U-100 Insulin] 100 unit/mL (3 mL) insulin pen 8 unit SUBCUT BEDTIME Spiriva Respimat 1.25 mcg/actuation mist 2 puff inhalation DAILY PRN (Reason: Shortness Of Breath) tramadol 50 mg tablet 50 mg PO Q6H PRN (Reason: pain) Qty: 20 0RF Januvia 100 mg Tablet 100 mg PO DAILY Discharge Orders: Discharge ED (Routine); Ordered 11/13/23 Ordered By: Dottie Lao Referrals: Merline Vaca FNP [Primary Care Provider] - Discharge Diet: Advance as tolerated Discharge Activity: Resume usual activity Patient Instructions: Head Injury (ED) Coding Level of Care Code ED Compatibility Test Engineer for Patti Vernon
[2023-11-13 15:50] VITALS: BP 131/79; PULSE 64; O2SAT 97
== END 2023-11-13 15:51 | disposition home or self-care (01) ==
PROVIDERS: Emergency Provider Emergency Medicine; PCP Nurse Practitioner Family
DX: S09.90XA Unspecified injury of head, initial encounter (principal); W17.89XA Other fall from one level to another, initial encounter
CPT/HCPCS: 70450; 72125; 99284

== ENCOUNTER → 2024-01-22 12:33 | Outpatient (BNVA) | payer MEDICARE, MEDICAID, SELFPAY | PROVIDERS: PCP Nurse Practitioner Family; Visit Provider Student in an Organized Health Care Education/Training Program | DX: M70.61 Trochanteric bursitis, right hip (principal); M54.9 Dorsalgia, unspecified; M53.3 Sacrococcygeal disorders, not elsewhere classified | CPT/HCPCS: 20610; 99213; J3301; J3490 ==

== ENCOUNTER → 2024-02-21 15:07 | Outpatient (BNVA) | payer MEDICARE, MEDICAID, SELFPAY | PROVIDERS: PCP Nurse Practitioner Family; Visit Provider Orthopaedic Surgery | DX: M54.9 Dorsalgia, unspecified (principal); M48.062 Spinal stenosis, lumbar region with neurogenic claudication | CPT/HCPCS: 72110; 99204 ==

== ENCOUNTER 2024-02-28 10:35 | Outpatient (CLI) | payer MEDICARE, MEDICAID, SELFPAY ==
--- NOTE | 2024-02-28 11:00 | MR_ITS ---
WS: [id number] MRI LUMBAR SPINE NONCONTRAST HISTORY: back pain COMPARISON: 04/20/2015, radiograph 02/21/2024 TECHNIQUE: Sagittal and axial multisequence imaging is submitted. Mild LEFT curvature lumbar spine. Posterior lumbar fusion from L4-S1. Interbody spacers at L4-5 and L 5-S1. Posterior alignment is well maintained. Approximately 2 mm anterolisthesis of L3 and L5. No fra ctures. No marrow edema. Disc spaces and vertebral body heights are well-preserved. Conus terminates normally at L1. L1-L2: Mild annular disc bulging with a shallow LEFT foraminal disc protrusion. No stenosis. L2-L3: Mild annular disc bulging with a LEFT foraminal disc protrusion. Smaller RIGHT foraminal disc protrusion. Mild ligamentum flavum and facet arthritis. Small amount of fluid in the RIGHT facet join t. Mild central, bilateral subarticular recess and LEFT foraminal stenosis. Mild disc contact on the traversing L3 nerve roots. L3-L4: Mild annular disc bulging encroaching upon the ventral thecal sac. Mild osteophytic ridging wi th advanced facet joint arthritis and ligamentum flavum hypertrophy. Moderate central, bilateral suba rticular recess stenosis and foraminal stenosis, LEFT greater than RIGHT. L4-L5: Posterior laminectomy defect. Mild osteophytic ridging. Mild encroachment upon the ventral the edu sac. Mild foraminal narrowing. L5-S1: Mild disc bulging and osteophytic ridging. Mild bilateral foraminal stenosis. Paravertebral soft tissues are negative. MR/MR lumbar spine wo con* [id number] IMPRESSION: 1. Status post posterior lumbar fusion with interbody spacers from L4-S1. 2. L3-4: Moderate central with bilateral subarticular recess and foraminal komal nosis, LEFT greater than RIGHT. Marked ligamentum flavum hypertrophy. 3. Small LEFT foraminal disc protrusions at L1-2 and L2-3. 4. L2-3: Mild central, bilateral subarticular recess and LEFT foraminal stenos is. Mild disc contact on the traversing L3 nerve roots. 5. Mild foraminal stenosis at L4-5 and L5-S1. 6. No marrow edema or fracture.
== END 2024-02-28 10:36 | disposition home or self-care (01) ==
PROVIDERS: PCP Nurse Practitioner Family; Visit Provider Orthopaedic Surgery
DX: M48.061 Spinal stenosis, lumbar region without neurogenic claudication (principal); Z98.1 Arthrodesis status; M51.26 Other intervertebral disc displacement, lumbar region; M48.07 Spinal stenosis, lumbosacral region; R93.89 Abnormal findings on diagnostic imaging of other specified body structures; M43.8X6 Other specified deforming dorsopathies, lumbar region; M47.816 Spondylosis without myelopathy or radiculopathy, lumbar region; M25.78 Osteophyte, vertebrae; M96.1 Postlaminectomy syndrome, not elsewhere classified
CPT/HCPCS: 72148

== ENCOUNTER → 2024-03-04 07:50 | Outpatient (BNVA) | payer MEDICARE, MEDICAID, SELFPAY | PROVIDERS: PCP Nurse Practitioner Family; Visit Provider Podiatrist Foot & Ankle Surgery | DX: E11.42 Type 2 diabetes mellitus with diabetic polyneuropathy (principal); M21.41 Flat foot [pes planus] (acquired), right foot; M21.42 Flat foot [pes planus] (acquired), left foot; M20.41 Other hammer toe(s) (acquired), right foot; M20.42 Other hammer toe(s) (acquired), left foot; Z79.4 Long term (current) use of insulin | CPT/HCPCS: 99213 ==

== ENCOUNTER → 2024-03-11 08:33 | Outpatient (BNVA) | payer MEDICARE, MEDICAID, SELFPAY | PROVIDERS: PCP Nurse Practitioner Family; Visit Provider Orthopaedic Surgery | DX: M48.062 Spinal stenosis, lumbar region with neurogenic claudication (principal); M54.9 Dorsalgia, unspecified | CPT/HCPCS: 99214 ==

== ENCOUNTER 2024-03-21 11:27 | Outpatient (RCR) | payer MEDICARE, MEDICAID, SELFPAY | END 2024-04-11 23:59 | disposition home or self-care (01) | LOC: SPT 11:27 | PROVIDERS: Visit Provider Orthopaedic Surgery | DX: M54.2 Cervicalgia (principal); G89.29 Other chronic pain | CPT/HCPCS: 97110; 97161 ==

== ENCOUNTER → 2024-04-07 10:00 | Outpatient (BNVA) | payer MEDICARE, MEDICAID, SELFPAY | PROVIDERS: Visit Provider Nurse Practitioner Family | DX: M48.062 Spinal stenosis, lumbar region with neurogenic claudication (principal); M16.11 Unilateral primary osteoarthritis, right hip; M53.3 Sacrococcygeal disorders, not elsewhere classified; M70.61 Trochanteric bursitis, right hip; M47.816 Spondylosis without myelopathy or radiculopathy, lumbar region; F17.210 Nicotine dependence, cigarettes, uncomplicated | CPT/HCPCS: 99214 ==

== ENCOUNTER → 2024-05-09 10:07 | Outpatient (BNVA) | payer MEDICARE, MEDICAID, SELFPAY | PROVIDERS: PCP Nurse Practitioner Family; Visit Provider Physician Assistant | DX: M17.12 Unilateral primary osteoarthritis, left knee (principal) | CPT/HCPCS: 73560; 73565; 99214 ==

== ENCOUNTER → 2024-05-14 09:46 | Outpatient (BNVA) | payer MEDICARE, MEDICAID, SELFPAY | PROVIDERS: PCP Nurse Practitioner Family; Visit Provider Student in an Organized Health Care Education/Training Program | DX: M70.61 Trochanteric bursitis, right hip (principal); M16.11 Unilateral primary osteoarthritis, right hip; M53.3 Sacrococcygeal disorders, not elsewhere classified; M48.062 Spinal stenosis, lumbar region with neurogenic claudication; M47.816 Spondylosis without myelopathy or radiculopathy, lumbar region | CPT/HCPCS: 99213 ==

== ENCOUNTER → 2024-05-19 09:13 | Outpatient (BNVA) | payer MEDICARE, MEDICAID, SELFPAY | PROVIDERS: PCP Nurse Practitioner Family; Visit Provider Nurse Practitioner Family | DX: M48.062 Spinal stenosis, lumbar region with neurogenic claudication (principal); F11.90 Opioid use, unspecified, uncomplicated; M16.11 Unilateral primary osteoarthritis, right hip; M53.3 Sacrococcygeal disorders, not elsewhere classified; M70.61 Trochanteric bursitis, right hip; M47.816 Spondylosis without myelopathy or radiculopathy, lumbar region; F17.210 Nicotine dependence, cigarettes, uncomplicated | CPT/HCPCS: 99213 ==

== ENCOUNTER → 2024-05-22 12:51 | Outpatient (BNVA) | payer MEDICARE, MEDICAID, SELFPAY | PROVIDERS: PCP Nurse Practitioner Family; Visit Provider Orthopaedic Surgery | DX: M48.062 Spinal stenosis, lumbar region with neurogenic claudication (principal) | CPT/HCPCS: 99213 ==

== ENCOUNTER 2024-06-02 07:17 | Outpatient (CLI) | payer MEDICARE, MEDICAID, SELFPAY ==
--- NOTE | 2024-06-02 07:30 | CT_ITS ---
WS: [id number] CT LEFT KNEE, NONCONTRAST TECHNIQUE: Noncontrast CT of the LEFT knee to include the LEFT hip and ankle. CLINICAL INFORMATION: M17.12 - Unilateral primary osteoarthritis, left knee COMPARISON: None. DLP: 939.[address] scans at [facility] use at least one of these dose optimization techniques: automated exposure control; mA and/or kV adjustment per patient size (includes targeted exams where dose is matched to clinical indication); or iterative reconstruction. FINDINGS: Advanced tricompartment arthritis LEFT knee. Hypertrophic patella. Small suprapatellar effusion. Vascular calcification. Low-attenuation RIGHT ovarian lesion measuring 2.8 x 2.5 cm. Recommend follow-up with ultrasound. CT/CT knee LT [facility] [id number] IMPRESSION: Images obtained for preoperative purposes. Low-attenuation RIGHT ovarian lesion measuring 2.8 x 2.5 cm. Recommend follow-u p with ultrasound.
[2024-06-02 08:07] LABS: Basophils % 0.6 %; Eosinophils # 0.1 10^3/uL (0.0-0.8); Eosinophils % 1.6 %; Hematocrit 40.6 % (36-47); Lymphocytes % 28.7 %; Mean Corpuscular HGB Conc 31.8 g/dL (30-55); Mean Corpuscular Hemoglobin 26.2 pg (27-33); Mean Corpuscular Volume 82.5 fl (85-98); Monocytes # 0.4 10^3/uL (0.2-0.9); Monocytes % 5.1 %; Neutrophils # 4.34 10^3/uL (1.8-7.7); Neutrophils % 63.6 %; Nucleated Red Blood Cells % 0 %; Platelet Count 289 10^3/cmm (157-399); Red Blood Count 4.92 10^6/uL (3.85-5.65); Red Cell Distribution Width 14.8 % (12.1-15.1); White Blood Count 6.83 10^3/uL (3.29-11.43)
[2024-06-02 08:09] LABS: Bilirubin Urine Negative (Negative); Blood Urine Negative (Negative); Glucose Urine UA Negative (Normal); Ketones Urine Trace (Negative); Leukocyte Esterase Urine 3+ (Negative); Nitrate Urine Positive (Negative); Protein Urine Trace (Negative); Specific Gravity, Urine 1.017 (1.005-1.030); Urine Appearance Cloudy (CLEAR); Urine Color Yellow (Yellow); pH Urine 5.5 (5-7)
[2024-06-02 08:14] LABS: Add Urine Microscopic? YES; Bacteria Urine 4+ /hpf; Hyaline Casts Urine 0-4 /lpf; RBC Urine 0-2 /hpf (0-2); Squamous Epithelial Cell Urine 0-5 /hpf (0-5); WBC Urine >100 /hpf (0-5)
[2024-06-02 08:23] LABS: Alanine Aminotransferase 16 U/L (0-33); Alkaline Phosphatase 90 U/L (35-105); Anion Gap 12.8 (5-19); Aspartate Amino Transferase 15 U/L (0-32); Blood Urea Nitrogen 8 mg/dL (8-23); Calcium 8.6 mg/dL (8.5-10.5); Carbon Dioxide 27 mmol/L (22-29); Chloride 103 mmol/L (98-107); Globulin 2.8 g/dL (1.3-4.6); Glucose 160 mg/dL (65-115); Osmolality Calculated 290 mOsm/kg (285-295); Potassium 3.8 mmol/L (3.5-5.1); Sodium 139 mmol/L (136-145); Total Bilirubin 0.3 mg/dL (0.15-1.2); Total Protein 6.8 g/dL (6.6-8.7)
[2024-06-02 08:28] LABS: Add Urine Culture? Yes
[2024-06-02 08:50] LABS: Estmated Average Glucose 192; Hemoglobin A1C 8.3 % (4.0-6.0)
== END 2024-06-02 07:18 | disposition home or self-care (01) ==
PROVIDERS: PCP Nurse Practitioner Family; Visit Provider Student in an Organized Health Care Education/Training Program
DX: M17.12 Unilateral primary osteoarthritis, left knee (principal); Z01.818 Encounter for other preprocedural examination; E11.42 Type 2 diabetes mellitus with diabetic polyneuropathy; E11.9 Type 2 diabetes mellitus without complications; N83.201 Unspecified ovarian cyst, right side; M89.38 Hypertrophy of bone, other site; M25.462 Effusion, left knee; I70.90 Unspecified atherosclerosis
CPT/HCPCS: 36415; 73700; 80053; 81001; 83036; 85025; 87077; 87086; 87186

== ENCOUNTER → 2024-06-04 10:33 | Outpatient (BNVA) | payer MEDICARE, MEDICAID, SELFPAY | PROVIDERS: PCP Nurse Practitioner Family; Visit Provider Physician Assistant | DX: M17.12 Unilateral primary osteoarthritis, left knee (principal) | CPT/HCPCS: 99213 ==

== ENCOUNTER → 2024-06-11 09:47 | Outpatient (BNVA) | payer MEDICARE, MEDICAID, SELFPAY | PROVIDERS: PCP Nurse Practitioner Family; Visit Provider Family Medicine | DX: Z01.818 Encounter for other preprocedural examination (principal) | CPT/HCPCS: 81003; 93005 ==

== ENCOUNTER → 2024-07-01 07:44 | Outpatient (BNVA) | payer MEDICARE, MEDICAID, SELFPAY | PROVIDERS: PCP Nurse Practitioner Family; Visit Provider Podiatrist Foot & Ankle Surgery | DX: E11.8 Type 2 diabetes mellitus with unspecified complications (principal); E11.42 Type 2 diabetes mellitus with diabetic polyneuropathy; M21.41 Flat foot [pes planus] (acquired), right foot; M21.42 Flat foot [pes planus] (acquired), left foot; M20.41 Other hammer toe(s) (acquired), right foot; M20.42 Other hammer toe(s) (acquired), left foot; Z79.4 Long term (current) use of insulin | CPT/HCPCS: 99213 ==

== ENCOUNTER → 2024-07-16 13:06 | Outpatient (BNVA) | payer MEDICARE, MEDICAID, SELFPAY | PROVIDERS: PCP Nurse Practitioner Family; Visit Provider Student in an Organized Health Care Education/Training Program | DX: M17.12 Unilateral primary osteoarthritis, left knee (principal); E11.9 Type 2 diabetes mellitus without complications; Z79.4 Long term (current) use of insulin | CPT/HCPCS: 99214 ==

== ENCOUNTER 2024-08-13 14:25 | Outpatient (CLI) | payer MEDICARE, MEDICAID, SELFPAY ==
--- NOTE | 2024-08-13 15:30 | CT_ITS ---
WS: [id number] CT LEFT knee, noncontrast HISTORY: LEFT TOTAL KNEE ARTHROPLASTY SURGICAL PLANNING TECHNIQUE: Protocol for [facility] total knee replacement has been obtained. This includes axial imaging through the LEFT hip, LEFT knee and LEFT ankle. DLP: 954.80 mGy.cm COMPARISON: Radiograph 05/09/2024 Hips: Degenerative air in the SI joints. Very minimal narrowing of the LEFT hip joint. No destructive bone lesions. LEFT knee: Advanced tricompartment osteoarthritis. Joint spaces are narrowed. Bone upon bone in the medial compartment. Large marginal osteophytes. No fracture. Small suprapatellar joint effusion. LEFT ankle: Mild degenerative changes in the midfoot. CT/CT knee [facility] [id number] IMPRESSION: CT imaging provided for [facility] robotic total knee replacement.
== END 2024-08-13 14:26 | disposition home or self-care (01) ==
LOC: RAD 14:26
PROVIDERS: PCP Nurse Practitioner Family; Visit Provider Student in an Organized Health Care Education/Training Program
DX: M17.12 Unilateral primary osteoarthritis, left knee (principal)
CPT/HCPCS: 73700

== ENCOUNTER 2024-08-29 07:46 | Outpatient (CLI) | payer MEDICARE, MEDICAID, SELFPAY ==
[2024-08-29 08:36] LABS: Hematocrit 45.3 % (36-47); Hemoglobin 14.00 g/dL (11.27-16.99); Mean Corpuscular HGB Conc 30.9 g/dL (30-55); Mean Corpuscular Hemoglobin 25.4 pg (27-33); Mean Corpuscular Volume 82.2 fl (85-98); Nucleated Red Blood Cells % 0 %; Platelet Count 254 10^3/cmm (157-399); Red Blood Count 5.51 10^6/uL (3.85-5.65); White Blood Count 8.07 10^3/uL (3.29-11.43)
[2024-08-29 08:46] LABS: Glucose Urine UA Negative (Normal); Nitrate Urine Negative (Negative); Specific Gravity, Urine 1.003 (1.005-1.030)
[2024-08-29 08:51] LABS: Add Urine Microscopic? YES
[2024-08-29 08:57] LABS: Alanine Aminotransferase 20 U/L (0-33); Albumin Level 3.9 g/dL (3.5-5.2); Alkaline Phosphatase 83 U/L (35-105); Anion Gap 18.7 (5-19); Aspartate Amino Transferase 17 U/L (0-32); Blood Urea Nitrogen 8 mg/dL (8-23); Calcium 9.3 mg/dL (8.5-10.5); Carbon Dioxide 22 mmol/L (22-29); Chloride 101 mmol/L (98-107); Globulin 3.2 g/dL (1.3-4.6); Glucose 96 mg/dL (65-115); Osmolality Calculated 284 mOsm/kg (285-295); Potassium 3.7 mmol/L (3.5-5.1); Sodium 138 mmol/L (136-145); Total Protein 7.1 g/dL (6.6-8.7)
[2024-08-29 08:59] LABS: Estmated Average Glucose 160; Hemoglobin A1C 7.2 % (4.0-6.0)
== END 2024-08-29 07:47 | disposition home or self-care (01) ==
PROVIDERS: PCP Nurse Practitioner Family; Visit Provider Student in an Organized Health Care Education/Training Program
DX: E11.9 Type 2 diabetes mellitus without complications (principal); Z01.818 Encounter for other preprocedural examination
CPT/HCPCS: 36415; 80053; 81001; 83036; 85025

== ENCOUNTER 2024-09-08 12:21 | Observation (INO) | payer MEDICARE, MEDICAID, SELFPAY ==
[2024-09-08] VITALS (17 sets, daily range): BP systolic 138–177; BP diastolic 67–98; PULSE 70–107; RESP 16–20; TEMP 36.2–36.8; O2SAT 91–97; BMI 32.1
--- NOTE | 2024-09-08 07:17 | USCV_ITS ---
Marysandrita Roxy Age: 69 Gender: F : 1955 Exam Date: 09/08/2024 07:40 Ordering Phys: Arcadio Hazel DO Technologist: SHWETA Exam Location: [facility] – [place] Indication: Preop HISTORY: Preop PROCEDURES: Venous duplex imaging was performed in bilateral lower extremities. The following venous structures were evaluated: common femoral vein, profunda vein, proximal portion of the greater saphenous vein, superficial femoral vein, and the popliteal vein. In addition, the posterior tibial and peroneal trunk were evaluated. Serial compression, augmentation maneuvers, and spectral Doppler flow evaluation were performed. FINDINGS: Normal 2-D Doppler and augmentation and compressibility throughout the lower extremity venous structures. Additional imaging through the proximal calf veins also reveals no thrombus. Limited evaluation of the greater saphenous vein is patent with no thrombus. CONCLUSIONS No DVT bilateral lower extremities. Dr. Jaylin Araiza DO (Electronically Signed) Final Date: 08 September 2024 08:03 S
--- NOTE | 2024-09-08 07:20 | W.PM.OPSFHP ---
Same Day Surgery H&P Indication for Procedure/HPI DATE OF PROCEDURE: September 08, 2024 CHIEF COMPLAINT/INDICATIONFOR SURGICAL PROCEDURE: Left knee DJD PREOP DIAGNOSIS: Left knee DJD PLANNED PROCEDURE: Operation Date: 09/08/24 09:20 Proposed Procedures p LEFT Daniel Robot Total Knee Arthroplasty(Left) - Arcadio Hazel, DO Medications/Allergies* Home Medications ?Medication ?Instructions ?Recorded ?Confirmed ?Type apixaban 5 mg tablet (Eliquis) 5 mg PO BID 04/17/19 09/04/24 History diltiazem HCl 120 mg 240 mg PO DAILY 04/17/19 09/04/24 History capsule,extended release 24 hr (Cartia XT) levothyroxine 100 mcg tablet 100 mcg PO DAILY 04/17/19 09/04/24 History lisinopril 20 mg tablet 20 mg PO BID 04/17/19 09/04/24 History pravastatin 10 mg tablet 40 mg PO BEDTIME 02/04/20 09/04/24 History glipizide 10 mg tablet, extended 10 mg PO DAILY 05/25/22 09/04/24 History release 24 hr sitagliptin phosphate 100 mg 100 mg PO DAILY 04/26/23 09/04/24 History tablet (Januvia) insulin glargine 100 unit/mL (3 20 unit SUBCUT BEDTIME 06/11/24 09/04/24 History mL) subcutaneous pen (Lantus Solostar U-100 Insulin) semaglutide 1 mg/dose (4 mg/3 mL) 1 mg SUBCUT Q7D 06/11/24 09/04/24 History subcutaneous pen injector (Ozempic) trazodone 100 mg tablet 100 mg PO BEDTIME 09/01/24 09/04/24 History Allergies/Adverse Reactions Allergy/AdvReac Type Severity Reaction Status Date / Time ampicillin Allergy ALGY-Hives Verified 09/04/24 16:01 erythromycin base Allergy ALGY-Hives Verified 09/04/24 16:01 Penicillins Allergy ALGY-Hives Verified 09/04/24 16:01 Pertinent History/Comorbid Conditions* Medical History (Updated 05/09/24 @ 11:25 by WOODY Nichole) DVT (deep venous thrombosis) Family History (Updated 04/17/19 @ 14:05 by Sandra Saleem MA) Diabetes Cancer Hypertension Stroke Social History Smoking and tobacco/nicotine status: current every day tobacco/nicotine user cigarettes Years cigarettes smoked: 20 Quit status (tobacco/nicotine): considering quitting Second hand smoke exposure: Yes Alcohol intake: never Substance/Drug Use: never Lives independently: Yes Household members: none Housing: House Marital status: Life Partner Current occupational status: disabled Pets and animals: Yes Do you think of yourself as: Straight/Heterosexual Current gender identity: Female Pertinent Exam Findings alert, oriented x 3, operative site marked and procedure specific exam findings Please refer to detail orthopedic examination on 07/16/2024: Left knee -Joint effusion noted. Patellar crepitus with range of motion. -ROM-limited 0 to 110 degrees -Medial and lateral joint line tenderness -Negative Ruth's -Negative valgus, negative varus -Positive Taran's test with pain and no clicking -Patient can wiggle toes and has a pedal pulse of 2+. Recommendations Risks and benefits of procedure reviewed and Patient/family agree to proceed Surgery/Procedure today Other Plans: Plan to proceed to the OR today for left total knee arthroplasty?Daniel robotic assisted. Patient is cleared the preoperative clearance process denies any issues since last office visit. Cleared the preoperative clearance process with Dr. Cottrell no new complaints at this time. A1c is now down to 7.2. Patient does have an history of DVT and as a result we will get a preoperative ultrasound scan today prior to proceed with surgical intervention which she understands and agrees to proceed with this. All questions answered at this time. Close is clear and no acute DVTs we will plan on proceeding with the OR today for a left total knee arthroplasty?Daniel robotic assisted all questions answered at this time. Coding Level of Care Code Acute Code for Patti Vernon
[2024-09-08] MEDS: acetaminophen 1,000 MG/100 ML PIGGYBACK 400 MG IV ×2 (08:34→23:33)
[2024-09-08 08:42] LABS: Hematocrit 41.6 % (36-47); Hemoglobin 13.20 g/dL (11.27-16.99); Mean Corpuscular HGB Conc 31.7 g/dL (30-55); Mean Corpuscular Hemoglobin 25.2 pg (27-33); Mean Corpuscular Volume 79.5 fl (85-98); Nucleated Red Blood Cells % 0 %; Platelet Count 310 10^3/cmm (157-399); Red Blood Count 5.23 10^6/uL (3.85-5.65); White Blood Count 7.67 10^3/uL (3.29-11.43)
[2024-09-08 08:58] LABS: Anion Gap 15.2 (5-19); Blood Urea Nitrogen 8 mg/dL (8-23); Calcium 9.1 mg/dL (8.5-10.5); Carbon Dioxide 25 mmol/L (22-29); Chloride 105 mmol/L (98-107); Creatinine Clr Calc Pharmacy 75.1085; Glucose 114 mg/dL (65-115); Osmolality Calculated 293 mOsm/kg (285-295); Potassium 3.2 mmol/L (3.5-5.1); Sodium 142 mmol/L (136-145)
--- NOTE | 2024-09-08 09:18 | ANES.PREANE2 ---
Pre-Anesthetic Assessment Height/Weight: Height 5 ft 6 in Weight 199 lb Temp Pulse Resp BP Pulse Ox O2 Del Method 97.1 F L 70 17 149/81 97 Room Air 09/08/24 07:27 09/08/24 07:27 09/08/24 07:27 09/08/24 07:27 09/08/24 07:27 09/08/24 07:27 Preop Diagnosis: Left knee DJD Operation Date: 09/08/24 09:20 Proposed Procedures p LEFT Daniel Robot Total Knee Arthroplasty(Left) - Arcadio Hazel, DO Was Beta Rocael taken within 24 hours: N/A Was Clonidine taken within 24 hours: N/A Last intake: Intake Last Liquid Date 09/07/24 Last Liquid Time 23:59 Last Solid Date 09/07/24 Last Solid Time 20:00 Social Tobacco and No alcohol Exam alert, oriented x 3 and regular rate & rhythm Airway Submandibular: within normal limits Cervical ROM: within normal limits Mallampati: Class III Dentition: false Anesthetic Plan ASA status: 3 Anesthesia: General Other: No prior issues with anesthesia NPO since yesterday evening History of IDDM, preop BS 112 Hypertension on diltiazem, lisinopril. Preop BP 149/81 JUVENAL, no treatment History of DVT/PE Lower extremity ultrasound showing no DVT present currently today Apixaban last taken 08/31/2024 Labs 09/08/2024 reviewed and acceptable for procedure today EKG showing sinus rhythm with first-degree AV block Plan for general anesthesia with adductor canal block Medications/Allergies Home Medications ?Medication ?Instructions ?Recorded ?Confirmed ?Last Taken ?Type apixaban 5 mg tablet (Eliquis) 5 mg PO BID 04/17/19 09/04/24 09/04/24 History diltiazem HCl 120 mg 240 mg PO DAILY 04/17/19 09/04/24 09/07/24 History capsule,extended release 24 hr (Cartia XT) levothyroxine 100 mcg tablet 100 mcg PO DAILY 04/17/19 09/04/24 09/07/24 History lisinopril 20 mg tablet 20 mg PO BID 04/17/19 09/04/24 09/07/24 History pravastatin 10 mg tablet 40 mg PO BEDTIME 02/04/20 09/08/24 09/07/24 History montelukast 10 mg tablet 10 mg PO DAILY #30 tabs 03/18/20 09/04/24 09/07/24 Rx (Singulair) raised toilet seat #1 ea 12/14/20 09/01/24 Unknown Rx glipizide 10 mg tablet, extended 10 mg PO DAILY 05/25/22 09/04/24 09/04/24 History release 24 hr sitagliptin phosphate 100 mg 100 mg PO DAILY 04/26/23 09/04/24 09/04/24 History tablet (Januvia) Diabetic shoes with 3 sets of #1 ea 10/31/23 09/01/24 Unknown Rx insoles tizanidine 4 mg capsule 8 mg (2 x 4 mg) PO BID PRN muscle 05/19/24 09/08/24 09/07/24 Rx spasticity #60 caps insulin glargine 100 unit/mL (3 20 unit SUBCUT BEDTIME 06/11/24 09/04/24 09/07/24 History mL) subcutaneous pen (Lantus Solostar U-100 Insulin) semaglutide 1 mg/dose (4 mg/3 mL) 1 mg SUBCUT Q7D 06/11/24 09/04/24 08/30/24 History subcutaneous pen injector (Ozempic) trazodone 100 mg tablet 100 mg PO BEDTIME 09/01/24 09/04/24 09/07/24 History Allergies Allergy/AdvReac Type Severity Reaction Status Date / Time ampicillin Allergy ALGY-Hives Verified 09/04/24 16:01 erythromycin base Allergy ALGY-Hives Verified 09/04/24 16:01 Penicillins Allergy ALGY-Hives Verified 09/04/24 16:01 Current Medications Generic Name Dose Route Start Last Admin Trade Name Freq PRN Reason Stop Dose Admin Sodium Chloride 1,000 mls @ 30 mls/hr 09/08/24 07:30 09/08/24 08:34 Sodium Chloride 0.9% IV 09/09/24 07:29 30 mls/hr .Q24H RON Administration PFSH Anesthesia Medical History DVT (deep venous thrombosis) Family History Other Cancer Diabetes Hypertension Stroke Social History Smoking and tobacco/nicotine status: current every day tobacco/nicotine user cigarettes Years cigarettes smoked: 20 Quit status (tobacco/nicotine): considering quitting Second hand smoke exposure: Yes Alcohol intake: never Substance/Drug Use: never Lives independently: Yes Household members: none Housing: House Marital status: Life Partner Current occupational status: disabled Pets and animals: Yes Do you think of yourself as: Straight/Heterosexual Current gender identity: Female Data Anesthesia 09/08/24 08:27 09/08/24 08:27 Short CBC 09/08/24 Range/Units 08:27 WBC 7.67 (3.29-11.43) 10^3/uL Hgb 13.20 (11.27-16.99) g/dL Hct 41.6 (36-47) % MCV 79.5 L (85-98) fl Plt Count 310 (157-399) 10^3/cmm Neut % (Auto) 67.6 % Neut # (Auto) 5.18 (1.8-7.7) 10^3/uL BMP 09/08/24 08:27 Sodium 142 Potassium 3.2 L Chloride 105 Carbon Dioxide 25 BUN 8 Creatinine 0.8 Glucose 114 Calcium 9.1
[2024-09-08] MEDS: ceFAZolin 2,000 MG in sodium chloride 0.9% (plus) 50 ML 100 MG IV ×2 (09:58→17:49)
[2024-09-08] MEDS: ROPivacaine 0.2% Premix 100 mL 200 MG INTRA-ARTI (11:00)
--- NOTE | 2024-09-08 11:47 | W.PM.BPON ---
Date of Procedure: 09/08/2024 Surgeon: Arcadio Hazel DO Rv Repair Technician(s): Johnny Hazel PA-C Procedure(s) performed: Left total knee arthroplasty?Daniel robotic assisted Findings of the procedure(s): Procedure went as planned without issues or complications Estimated blood loss: 25 mL Specimen(s) removed: Tibia femur and patellar bone cuts removed Post-operative diagnosis: Left knee DJD
--- NOTE | 2024-09-08 11:48 | P.OP_ITS ---
Operative Report Date of procedure: September 08, 2024 Surgeon: Arcadio Hazel DO Lapidary Apprentice: Johnny Hazel PA-C: PA was necessary for assistance in this case with leg positioning retraction and protection of neurovascular structures as well as assistance in implantation wound closure and dressing application. Procedure: Preoperative diagnosis: Left knee degenerative joint disease Post-op diagnosis: Same Procedure done: Left total knee arthroplasty, cemented?robotic assisted Daniel Implants: Hien triathlon size 3 femur CR cemented?left [place] triathlon size? 3 tibia universal baseplate cemented [place] triathlon asymmetric patella size 32 mm [place] triathlon polyethylene 10mm Surgeon: Arcadio Hazel DO Estimated blood?loss: 25 mL Tourniquet 54 minutes IV fluids: 800 mL Urine output: 100 mL Complications: None Condition: stable Disposition: floor Brief History: Patient is a 69-year-old female with with chronic?left knee degenerative joint d isease.? Patient has been worked up in the outpatient setting in the orthopedic office at this point time through shared decision making given? [id number] arthritis as well as failed conservative treatment, and pt would?like to proceed with a?left total knee arthroplasty.? Through shared decision making elected to proceed with surgical intervention for?left total knee arthroplasty with Daniel robotic assist. We talked about continued conservative treatment and surgical intervention as far as the risk benefits complications alternatives surgical and nonsurgical treatment options.? At this point time understanding patient risks with surgery he agrees to proceed with surgical intervention.? Once again? risk with surgery include but are not?limited to make it better make it worse blood clot, heart attack, stroke, on the table, infection, injury to nerves or vessels, persistent pain, arthrofibrosis, implant failure.? Understanding these risks patient agrees to proceed with surgical intervention consent was obtained in the preoperative holding area.? All questions answered. Procedure: Patient was seen and evaluated in the preoperative holding area.? Consent was reviewed and signed with patient with plan for?left total knee arthroplasty.? All questions answered.? Correct extremity marked.? Patient seen and evaluated by the anesthesia department and once cleared for surgery was taken back to the operative suite.? Patient was placed into a supine position on the OR table.? All bony prominences were well-padded.? Patient was appropriately secured to the bed.? Patient underwent anesthesia per the anesthesia department.? Patient received anesthesia and? Cervantes catheter was placed.? A nonsterile tourniquet was applied to the?left thigh.? At this point in time a final timeout performed.? Patient received appropriate preoperative antibiotics. Next the?left?lower extremity was then prepped and draped in standard orthopedic fashion. Esmarch tourniquet was used exsanguinate the?left?lower extremity.? Tourniquet was insufflated to 250 mmHg. A standard anterior incision was made over midline of the knee.? Sharp scalpel excision through skin and subcutaneous tissue full-thickness skin flaps were made.? Fascia was elevated off of the extensor retinaculum was stable with medial parapatellar arthrotomy was then made.? The performed standard sequential releases.? Immediately on entry into the joint patient was found to have severe eburnated bone and tricompartmental arthritic changes noted? With significant osteophyte formation.? Next the patella was then stuffed and the knee was then flexed.?? Brett was placed superiorly around the anterior aspect of the femur this was freed of synovium and I subsequently then placed by 2 femur pins to establish my femur arrays for the Daniel robot.? These were then placed bicortically and? femur array was then appropriately secured with appropriate visualization.? Next attention was turned towards the tibial rays.? These were then drilled sequentially bicortically in parallel fashion and intraincisional.? I then placed my guide as well as my tibial array on in place.? This was appropriately secured and had excellent visualization with the Daniel robot.? Next the tibial checkpoint as well as femur checkpoint were then placed.? At this point time I then subsequently established my head center as well as my medial?lateral malleoli as well as my checkpoints.? Next utilizing standard Daniel technology I then mapped out the appropriate points and confirmation points around the femur as well as the tibia in standard fashion.? Once this was then done I then removed all osteophytes in preparation for dynamic testing.? All osteophytes were removed as well as I removed the ACL and the PCL was excised due to its significant tearing and degeneration noted.? At this point time the knee was brought into full extension and we performed our standard evaluation of our gap balancing stressing his?ligaments and extension as well as flexion appropriate adjustments were made to have appropriate gap balancing in both flexion and extension.? This plan for final cuts. We are able to make adjustments to cuts to allow for implant positioning to correct deformity as well as do this within patient's ligamentous tolerances.? We get a preoperative plan evaluating our implants which was a size 3 femur and a size 3 tibia.? Next we brought in the Daniel robot and sequentially made our femur cuts.? All excess bony cuts were then removed.? Finally we made our tibial cut.? Once this was done a standard PCL retractor was then placed into this position I excised the medial and?lateral meniscus.? The tibial cut was then subsequently removed all excess bony debris was removed.? I then utilized a?lamina highway maintenance worker and remove the posterior osteophytes.? At this point time sized the tibia and confirmed this was a size 3.? I utilized our blunt probe to establish rotation of tibial implant.? Once this was done I then placed my tibia size 3 trial in appropriate position and then subsequently placed tibial pins to hold this into place placed and trialed up to a size 10 mm poly as well as a size 3 femur which was appropriately impacted in place knee was then subsequently brought into extension. Trials were then assessed,? this was stable with varus valgus stress in extension as well as had symmetrical translation when brought into flexion demonstrating symmetrical gaps. I had excellent balance gaps in flexion and extension with varus and valgus stresses.? At this point I was satisfied with these implants these were then verified and opened on the back table size 3 tibia, size 3 femur,? size 10 mm polythickness.? We did confirm appropriate gap balancing and stresses as well as alignment utilizing? Daniel and were satisfied with this plan.? ?At this point time with my trials in place I then towel clip the patella everted this made appropriate measurements subsequently utilizing freehand technique performed by patellar resurfacing this was confirmed to be appropriate resection and subsequently sized to be a 32 mm asymmetric.? My drill peg guides were then clamped and appropriate position and appropriate position in the patella for appropriate tracking and parallel with the joint.? Pegs were drilled trial implant was placed and the knee was then subsequently ranged and found to have excellent patellar tracking.? Femur pegs were then drilled.?At this point time all of our trial implants were removed.? All checkpoints as well as guidepins and arrays were removed and appropriate counts made.? Satisfied with our tibial placement rotation I then utilized the keel punch and prepped the tibia.? The wound bed? was thoroughly irrigated and dried and prepped for cementation.? Cement was mixed on the back table.? Once cement was ready this was then covered onto the tibia and the tibial baseplate was then impacted and all excess cement was removed.? Next the polyethylene was then impacted into place on the tibial baseplate.? Next cement was placed onto the femur as well as under the femur implants and impacted in to place and all excess cement was extruded and removed.? Knee was taken into full extension? to clear all excess cement was removed.? Warm saline was placed over the joint.? I then towel clip patella and dried for cementation. cemented the patella into place.? This was all clamped and the cement was allowed to cure.? Thorough irrigation performed with pulse?lavage.? I then placed my periarticular injection while the cement was curing.? Once cured the knee was taken through range of motion and had excellent stability and gaps were balanced in flexion and extension.? Tourniquet was then deflated. hemostasis satisfactory with electrocautery.? Vancomycin powder was placed in wound bed for antibiotic infection prophylaxis. Next I then subsequently closed the capsule with Ethibond suture as well as a running strata fix suture.? Knee was then taken through range of motion 30 times.? Next the skin was then closed in?layered fashion of running stratifix sutures of deep and subcutenous tissue and skin.? ?closed in flexion barbara for skin. Incision was covered with cameron incisional VAC, with ABDs soft roll and Po wrap.? Patient was then awakened from anesthesia and taken to PACU in stable condition. Disposition: Patient taken to PACU in stable condition will be admitted to the floor for pain control PT/OT weight-bear as tolerated?left?lower extremity dressing changes as needed, DVT prophylaxis. Pain control. Patient will receive appropriate postoperative antibiotics. patient will be seen today by the internal medicine team for medical management.? Patient will follow up with the office in 2 weeks.? Patient understands agrees with current plan.? All questions answered.
--- NOTE | 2024-09-08 12:03 | PM.PACU ---
PACU note Narrative: Patient is a 69-year-old female who just underwent a left total knee arthroplasty. Pt transferred to PACU in stable condition. Dressing is dry. pt is awake and alert. pt can wiggle toes and plantarflex and dorsiflex foot. pt able to perform straight leg raise, Femoral nerve intact. Compartments are soft and compressible. Distal pulses are palpable toes are warm and well-perfused. Cap refill is normal and under 2 seconds. Sensation to foot is intact. Pain is controlled. Exam: awake Disposition: admitted
[2024-09-08] MEDS: fentaNYL 50 mcg/mL INJ 2mL IVP (12:14)
--- NOTE | 2024-09-08 12:19 | XRR_ITS ---
PROCEDURE INFORMATION: Exam: XR Left Knee Exam date and time: 09/08/2024 12:20 PM Age: 69 years old Clinical indication: Device placement; Joint replacement hardware; Prior surgery; Surgery date: Post-operative (0-2 days); Surgery type: L tka; Additional info: Post L tka, do in pacu TECHNIQUE: Imaging protocol: Radiologic exam of the left knee. Views: 1 or 2 views. COMPARISON: CT knee LT [facility] [id number] 08/13/2024 3:05 PM FINDINGS: Bones/joints: Total left knee replacement. Prosthesis appears in anatomical position. No fracture. XR/XR knee LT 1-2V [id number] IMPRESSION: New total left knee replacement.
--- NOTE | 2024-09-08 12:41 | ANE.PACU2 ---
Inpatient post-anesthesia follow up: Airway intact: Yes Vital signs: Temperature 98.0 F Pulse Rate 86 Respiratory Rate 17 Blood Pressure 163/77 Pulse Oximetry 93 Oxygen Delivery Me thod Room Air Oxygen Flow Rate Fraction of Inspir ed Oxygen Hydration adequate: Yes Nausea and vomiting: No Pain level: 2 Mental status: Baseline
--- NOTE | 2024-09-08 16:18 | PM.CONSULT ---
Providers/Reason For Consult Consulting Physician/Specialty*: Dr. Sheikh/Hospitalists. Reason for Consult*: Medical Management after TKA. Requesting Physician: Dr. Hazel, orthopedics. Attending Physician: Arcadio Hazel DO Primary Care Provider: RACHEL Voss History of Present Illness History of Present Illness Roxy Carlos is a 69 year old female Review of Systems Const: Denies: fever(s), chills or fatigue Eyes: Denies: change in vision ENMT: Denies: odynophagia or nasal discharge Card: Denies: chest pain Resp: Denies: dyspnea GI: Denies: abdominal pain, nausea or vomiting : Denies: urinary urgency Musc: Denies: neck pain or back pain Skin/Breast: Denies: rash, photosensitivity or skin tenderness Neuro: Denies: headache(s) or numbness in extremities Psych: Denies: anxiety or depression Medications/Allergies Home Medications ?Medication ?Instructions ?Recorded ?Confirmed ?Last Taken ?Type apixaban 5 mg tablet (Eliquis) 5 mg PO BID 04/17/19 09/04/24 09/04/24 History diltiazem HCl 120 mg 240 mg PO DAILY 04/17/19 09/04/24 09/07/24 History capsule,extended release 24 hr (Cartia XT) levothyroxine 100 mcg tablet 100 mcg PO DAILY 04/17/19 09/04/24 09/07/24 History lisinopril 20 mg tablet 20 mg PO BID 04/17/19 09/04/24 09/07/24 History pravastatin 10 mg tablet 40 mg PO BEDTIME 02/04/20 09/08/24 09/07/24 History montelukast 10 mg tablet 10 mg PO DAILY #30 tabs 03/18/20 09/04/24 09/07/24 Rx (Singulair) raised toilet seat #1 ea 12/14/20 09/01/24 Unknown Rx glipizide 10 mg tablet, extended 10 mg PO DAILY 05/25/22 09/04/24 09/04/24 History release 24 hr sitagliptin phosphate 100 mg 100 mg PO DAILY 04/26/23 09/04/24 09/04/24 History tablet (Januvia) Diabetic shoes with 3 sets of #1 ea 10/31/23 09/01/24 Unknown Rx insoles tizanidine 4 mg capsule 8 mg (2 x 4 mg) PO BID PRN muscle 05/19/24 09/08/24 09/07/24 Rx spasticity #60 caps insulin glargine 100 unit/mL (3 20 unit SUBCUT BEDTIME 06/11/24 09/04/24 09/07/24 History mL) subcutaneous pen (Lantus Solostar U-100 Insulin) semaglutide 1 mg/dose (4 mg/3 mL) 1 mg SUBCUT Q7D 06/11/24 09/04/24 08/30/24 History subcutaneous pen injector (Ozempic) trazodone 100 mg tablet 100 mg PO BEDTIME 09/01/24 09/04/24 09/07/24 History Allergies Allergy/AdvReac Type Severity Reaction Status Date / Time ampicillin Allergy ALGY-Hives Verified 09/04/24 16:01 erythromycin base Allergy ALGY-Hives Verified 09/04/24 16:01 Penicillins Allergy ALGY-Hives Verified 09/04/24 16:01 PFSH Acute PFSH: Medical History DVT (deep venous thrombosis) Surgical History (Updated 09/08/24 @ 16:25 by Gavin Sheikh MD) Previous back surgery History of total knee arthroplasty Family History Other Cancer Diabetes Hypertension Stroke Social History Smoking and tobacco/nicotine status: current every day tobacco/nicotine user cigarettes Years cigarettes smoked: 20 Quit status (tobacco/nicotine): considering quitting Second hand smoke exposure: Yes Alcohol intake: never Substance/Drug Use: never Lives independently: Yes Household members: none Housing: House Marital status: Life Partner Current occupational status: disabled Pets and animals: Yes Do you think of yourself as: Straight/Heterosexual Current gender identity: Female Vitals/I&O/Wt Last Vital Signs Temp 98.0 F 09/08/24 13:09 Pulse 86 09/08/24 13:37 Resp 17 09/08/24 13:09 BP 163/77 09/08/24 14:00 Pulse Ox 93 09/08/24 13:37 O2 Del Method Room Air 09/08/24 13:37 09/08/24 09/08/24 09/08/24 06:59 14:59 22:59 Intake Total 150 / 150 Output Total 125 / 125 Balance Weight last 48 hrs Weight 90.265 kg Physical Exam Const: COMMON NORMALS: no acute distress HENMT: COMMON NORMALS: normocephalic and atraumatic HEAD & SCALP: normocephalic and atraumatic Eye: COMMON NORMALS: Equal, round and reactive pupils present PUPIL: Yes Equal, round and reactive pupils present Resp: COMMON NORMALS: normal respiratory effort and clear to auscultation bilaterally AUSCULTATION: clear to auscultation bilaterally Cardio: COMMON NORMALS: regular rate and regular rhythm; negative for No gallops present (Cardio), negative for No murmurs present (Cardio) and negative for No rub (Cardio) RATE: regular rate RHYTHM: regular rhythm GI: COMMON NORMALS: Normal to inspection, nondistended, normoactive bowel sounds present Extremity: COMMON NORMALS: full ROM (recent TKA on left, prior TKA scar on right) and no clubbing, cyanosis or edema Urinary Catheter Management: Cervantes: Cath Placed During This Visit: yes Urinary Catheter Date of Insertion: 09/08/24 Urinary Catheter Time of Insertion: 10:07 Data 09/08/24 08:27 09/08/24 08:27 A&P Assessment and plan 1. Osteoarthritis of left knee: Plan: 69 year old female presenting for elective left TKA, hospitalists consulted for medical management Elective left TKA - management per ortho - analgesic/antiemetics - bowel regimen initiated. History of PE/DVT - eliquis held for surgery - likely will resume after discharge DMII - hold home glipizide - cont. insulin glargine at reduced dose of 10 units qHS - SSI - hold home januvia/semaglutide Insomnia - cont. home trazodone Hypothyroidism - cont. home levothyroxine HTN - cont. home lisinopril Allergies - cont. montelukast Hyperlipidemia - cont. home pravastatin PPx: eliquis held for surgery Disposition - monitor O/N and likely able to discharge in the AM if no other issues. PDMP PDMP Reviewed: Not Reviewed Consult Attestations Medical Necessity Statement: Post TKA care. Coding Level of Care Code Acute Code for Chg Fwd Diagnoses Osteoarthritis of left knee M17.12
--- NOTE | 2024-09-08 17:46 | ANES.PROC ---
Anesthesia Procedures Procedure/Date: 09/11/24 Nerve Block ^: Nerve Block 1: Main Anesthesia: general anesthesia Time Out Performed: Yes Consent: requested by attending/covering physician and from patient Laterality: Left Nerve block location: adductor canal Anesthesia monitors applied: pulse oximetry, EKG, BP cuff and oxygen Nerve block position: supine Anesthetic Used: ropivicaine 0.5% Amount of anesthesia used (mL): 15 Ultrasound used to: recognize landmarks Nerve Stimulator Used?: No Interscalene/Femoral BLK: other needle (pjunk 4inch) Injection: neg aspiration of heme Patient Tolerated Procedure: well Complications: none
[2024-09-08] MEDS: mupirocin oint 22 gm 1 APPLIC NASAL (17:47)
[2024-09-08] MEDS: calcium carb-vit d 600mg/400unit 1 Tablet 1 EACH PO (17:48)
[2024-09-08] MEDS: oxyCODONE 5 mg IR Tab/Cap PO (18:09)
[2024-09-08] MEDS: insulin glargine 100 units/1 mL 10 UNIT SUBCUT (20:57)
[2024-09-08] MEDS: chlorhexidine gluconate 0.12% Btl 473 mL 30 ML MUCOUS MEM (20:57)
[2024-09-08] MEDS: ATORVASTATIN 10 MG TABLET 20 MG PO (20:57)
[2024-09-09] MEDS: ceFAZolin 2,000 MG in sodium chloride 0.9% (plus) 50 ML 100 MG IV ×2 (01:52→09:28)
[2024-09-09 02:34] VITALS: RESP 16
[2024-09-09] MEDS: oxyCODONE 5 mg IR Tab/Cap PO ×2 (02:34→08:14)
[2024-09-09 05:36] LABS: Hematocrit 34.6 % (36-47); Hemoglobin 10.90 g/dL (11.27-16.99); Mean Corpuscular HGB Conc 31.5 g/dL (30-55); Mean Corpuscular Hemoglobin 25.7 pg (27-33); Mean Corpuscular Volume 81.6 fl (85-98); Nucleated Red Blood Cells % 0 %; Platelet Count 272 10^3/cmm (157-399); Red Blood Count 4.24 10^6/uL (3.85-5.65); White Blood Count 10.79 10^3/uL (3.29-11.43)
[2024-09-09] MEDS: calcium carb-vit d 600mg/400unit 1 Tablet 1 EACH PO (05:52)
[2024-09-09 06:03] LABS: Anion Gap 14.3 (5-19); Blood Urea Nitrogen 12 mg/dL (8-23); Calcium 8.5 mg/dL (8.5-10.5); Carbon Dioxide 25 mmol/L (22-29); Chloride 104 mmol/L (98-107); Creatinine Clr Calc Pharmacy 66.6279; Glucose 137 mg/dL (65-115); Osmolality Calculated 292 mOsm/kg (285-295); Potassium 3.3 mmol/L (3.5-5.1); Sodium 140 mmol/L (136-145)
[2024-09-09 07:19] VITALS: BP 128/76; PULSE 67; RESP 16; TEMP 36.6; O2SAT 96
[2024-09-09] MEDS: dilTIAZem ER (24HR) 120 mg Capsule 240 MG PO (08:13)
[2024-09-09] MEDS: mupirocin oint 22 gm 1 APPLIC NASAL (08:15)
[2024-09-09] MEDS: chlorhexidine gluconate 0.12% Btl 473 mL 30 ML MUCOUS MEM (08:16)
[2024-09-09] MEDS: multivitamin therapeutic Tablet 1 TAB PO (08:22)
--- NOTE | 2024-09-09 09:25 | PC.CHAP ---
Pastoral Care Encounter/Spiritual Assessment Type of Contact [] Declined branch account manager visit [] Patient/Family/Request visit [] Outpatient visit [] Follow-up visit [] Physician referral [] Code/Alert [x] Routine visit [] Staff referral [] Actively dying [] Patient sleeping [] Family support [] [] Out of room [] Palliative care [] [] Receiving care in room [] Pre-surgical visit [] Trauma [] Long length of stay [] ICU visit [] Other: Relational/Emotional Strength [x] Patient feels connected with others/family/visitors/staff [] Distress [] Loneliness/isolation [] Abandonment Spirituality of Patient [x] Person of Estee [] Attends Uatsdin of their Estee [x] Believes in Prayer [] Reads Bible or Buddhism materials [] There are Spiritual issues to be addressed Customer Service Manager Interventions [x] Prayer [x] Active listening [x] Non-anxious presence [x] Spiritual/emotional support [] Crisis/trauma care [] Spiritual counseling [] Bereavement support [] Provided bereavement packet [] Provided Bible/devotional materials [] Provided toy/stuffed animal, coloring book to patient or family member [] Provided Communion [] Anointing/Drifting [] Salvation [x] Completed spiritual assessment [] Other: Impact on Illness or Injury [] Angry [] Fearful [] Anxious [] Often cries [] Exhaustion [] Unable to work [] Unable to attend buddhist [] Unable to walk/stand [] Unable to read [] Unable to drive [] Unable to eat/drink [] Unable to sleep [] Unable to be with family [] Patient intubated [] Other: Summary Time spent with patient 5 min
[2024-09-09] MEDS: acetaminophen 1,000 MG/100 ML PIGGYBACK 400 MG IV (09:28)
--- NOTE | 2024-09-09 11:25 | P.PN_ITS ---
Subjective 2 Subjective: No new issues, ambulating well post surgery. Vitals/I&O/Wt Last Vital Signs Temp 97.8 F 09/09/24 07:19 Pulse 67 09/09/24 07:19 Resp 16 09/09/24 07:19 BP 128/76 09/09/24 07:19 Pulse Ox 96 09/09/24 07:19 O2 Del Method Room Air 09/09/24 07:19 09/08/24 09/09/24 09/09/24 22:59 06:59 14:59 Intake Total 730 / 880 370 / 1250 360 / 360 Output Total 1550 / 1675 550 / 2225 Balance -820 / -795 -180 / -975 360 / 360 Weight last 48 hrs Weight 89.902 kg Weight 90.265 kg Physical Exam 2 Const: COMMON NORMALS: no acute distress HENMT: COMMON NORMALS: normocephalic and atraumatic HEAD & SCALP: n ormocephalic and atraumatic Eye: COMMON NORMALS: Equal, round and reactive pupils present PUPIL: Yes Equal, round and reactive pupils present Resp: COMMON NORMALS: normal respiratory effort and clear to auscultation bilaterally AUSCULTATION: clear to auscultation bilaterally Cardio: COMMON NORMALS: regular rate and regular rhythm; negative for No gallops present (Cardio), negative for No murmurs present (Cardio) and negative for No rub (Cardio) RATE: regular rate RHYTHM: r egular rhythm GI: COMMON NORMALS: Normal to inspection, nondistended, normoactive bowel sounds present Extremity: COMMON NORMALS: full ROM (recent TKA on left, prior TKA scar on right) and no clubbing, cyanosis or edema Urinary Catheter Management: Cervantes: Cath Placed During This Visit: yes, but has since been removed by the nurse Reason for Continuing Indwelling Catheter: Perioperative Use in Selected Surgeries Urinary Catheter Date of Insertion: 09/08/24 Urinary Catheter Time of Insertion: 10:07 Date Urinary Catheter Removed: 09/09/24 Time Urinary Catheter Discontinued: 06:01 Data 09/09/24 03:27 09/09/24 03:27 A&P Assessment and plan 1. Osteoarthritis of left knee: Plan: 69 year old female presenting for elective left TKA, hospitalists consulted for medical management Elective left TKA - management per ortho - analgesic/antiemetics - bowel regimen initiated. History of PE/DVT - eliquis held for surgery - likely will resume after discharge DMII - hold home glipizide - cont. insulin glargine at reduced dose of 10 units qHS - SSI - hold home januvia/semaglutide - restart home anti-diabetic regimen after discharge. Insomnia - cont. home trazodone Hypothyroidism - cont. home levothyroxine HTN - cont. home lisinopril Allergies - cont. montelukast Hyperlipidemia - cont. home pravastatin Hypokalemia - 40 meq given today. PPx: eliquis held for surgery Disposition - OK for discharge from hospitalist standpoint when primary team is ready. PDMP PDMP Reviewed: Not Reviewed Attestations 2 Medical Necessity Statement*: Discharge planning for today per primary. Time Spent in Patient Care: 16 - 35 minutes Coding Level of Care Code Acute Code for Chg Fwd Diagnoses Osteoarthritis of left knee M17.12
[2024-09-09 11:32] VITALS: BP 150/74; PULSE 75; RESP 16; TEMP 36.9; O2SAT 97
== END 2024-09-09 13:00 | disposition home health service (06) ==
LOC: MEDSURG 12:22
PROVIDERS: Physician Assistant; Admitting Provider Student in an Organized Health Care Education/Training Program; PCP Nurse Practitioner Family; Visit Provider Student in an Organized Health Care Education/Training Program
PROC: 8E0Y0CZ Robotic Assisted Procedure of Lower Extremity, Open Approach (ICD-10-PCS; CPT 27447; principal; 2024-09-08 09:20)
DX: M17.12 Unilateral primary osteoarthritis, left knee (principal); I82.409 Acute embolism and thrombosis of unspecified deep veins of unspecified lower extremity; F17.210 Nicotine dependence, cigarettes, uncomplicated; G47.33 Obstructive sleep apnea (adult) (pediatric); I10 Essential (primary) hypertension; E11.9 Type 2 diabetes mellitus without complications; Z79.4 Long term (current) use of insulin
CPT/HCPCS: 27447; 20985; 36415; 36416; 51702; 73560; 80048; 82962; 85025; 86850; 86900; 93970; 96372; 97116; 97161; 97530; A4216; C1713; C1776; G0378; J0131; J0169; J0690; J1815; J1885; J2250; J2704; J2795; J3010; J3373; J7030; J9999; L8699

== ENCOUNTER → 2024-09-23 10:15 | Outpatient (BNVA) | payer MEDICARE, MEDICAID, SELFPAY | PROVIDERS: PCP Nurse Practitioner Family; Visit Provider Physician Assistant | DX: Z96.652 Presence of left artificial knee joint (principal) | CPT/HCPCS: 73560; 73565; 99024 ==

== ENCOUNTER → 2024-11-04 10:37 | Outpatient (BNVA) | payer MEDICARE, MEDICAID, SELFPAY | PROVIDERS: PCP Nurse Practitioner Family; Visit Provider Physician Assistant | DX: Z98.890 Other specified postprocedural states (principal); Z96.652 Presence of left artificial knee joint | CPT/HCPCS: 73560; 73565; 99024 ==

== ENCOUNTER 2024-11-11 12:46 | Outpatient (CLI) | payer MEDICARE, MEDICAID, SELFPAY ==
--- NOTE | 2024-11-11 12:50 | CT_ITS ---
WS: [id number] LUNG CANCER SCREENING TECHNIQUE: Noncontrast CT of the chest with coronal and sagittal reformatted images. CLINICAL INFORMATION: PERSONAL HISTORY OF NICOTINE DEPENDENCE COMPARISON: No recent comparisons. Chest CT 2019 DLP: 82.80 mGy.cm DIvol: Mean CTDIvol: 2.10 (mGy) All CT scans at [facility] use at least one of these dose optimization techniques: automated exposure control; mA and/or kV adjustment per patient size (includes targeted exams where dose is matched to clinical indication); or iterative reconstruction. FINDINGS: Calcified granuloma RIGHT upper lobe. Subsegmental atelectasis LEFT lower lobe. Tiny subpleural nodule RIGHT middle lobe. A few tiny micronodules in the lower lobes. 4 mm nodule LEFT lower lobe at the diaphragm. Aortic calcification. Coronary calcification. No mediastinal or hilar lymphadenopathy. Cholecystectomy clips. Postoperative changes at the GE junction. Adrenal glands are normal. Splenic artery calcification. No axillary lymphadenopathy. Thoracic curve. Thoracic kyphosis. Anterior hypertrophic changes. CT/CT lung screening [id number] IMPRESSION: LUNG-RADS: 2-Benign Appearance or Behavior FOLLOW UP: 12 Month: Continue annual screening with LDCT
== END 2024-11-11 12:47 | disposition home or self-care (01) ==
LOC: RAD 12:49
PROVIDERS: PCP Nurse Practitioner Family; Visit Provider Nurse Practitioner Family
DX: Z12.2 Encounter for screening for malignant neoplasm of respiratory organs (principal); Z87.891 Personal history of nicotine dependence; J84.10 Pulmonary fibrosis, unspecified; J98.11 Atelectasis; I70.0 Atherosclerosis of aorta; I25.84 Coronary atherosclerosis due to calcified coronary lesion; K91.89 Other postprocedural complications and disorders of digestive system; D73.89 Other diseases of spleen; M40.204 Unspecified kyphosis, thoracic region; M89.38 Hypertrophy of bone, other site; M40.04 Postural kyphosis, thoracic region
CPT/HCPCS: 71271